=== PATIENT | female | born 1970 | race African-American/Black ===

== ENCOUNTER 2016-04-18 17:01 | Emergency (ER) | payer MEDICARE, OTHER ==
[~2016-04-18] VITALS: Ht 165.1 cm; Wt 77.5 kg
[2016-04-18 17:07] VITALS: Ht 165.1 cm; Wt 77.5 kg
[2016-04-18] MEDS ORDERED: KETOROLAC 60 MG INJ IM STA (18:09)
[2016-04-18] MEDS ORDERED: AZITHROMYCIN 250 MG TAB PO ONE (18:30)
[2016-04-18] MEDS ORDERED: CEFTRIAXONE 250 MG INJ IM ONE (18:30)
[2016-04-18] MEDS ORDERED: LIDOCAINE 1% (MDV) 20 ML INJ SC ONE (19:00)
[2016-04-18] MEDS ORDERED: AMOX1TAB10 PO (20:05)
[2016-04-18] MEDS ORDERED: ULT50 PO (20:05)
--- NOTE | 2016-04-18 20:13 | ERD ---
ER Documentation Chief Complaint Date/Time DATE: 04/18/16 TIME: 20:10 Chief Complaint COUGH CONGESTION FOR THE PAST FEW DAYS WITH UPPER BACKPAIN HPI 46-year-old female with a past medical history of syphilis presents the ED complaining of a left toothache that started 4 days ago. States that she is also concerned for STDs. Denies any fever, chills, abdominal pain, nausea, vomiting, diarrhea. States that she is premenopausal and her last menses was sometime in 2006. Denies any pelvic pain, vaginal discharge, vaginal bleeding. ROS All systems reviewed and are negative except as per history of present illness. Medications Home Meds Active Scripts Amoxicillin/Potassium Clav (Amox-Clav 875-125 mg Tablet) 875-125 mg Tab, 1 TAB PO BID for 7 Days, #14 TAB Prov:ELISABETH CHILDRESS PA-C 04/18/16 Tramadol HCl (Tramadol HCl) 50 Mg Tablet, 50 MG PO Q4 Y for PAIN, #20 TAB Prov:ELISABETH CHILDRESS PA-C 04/18/16 Allergies Allergies: Coded Allergies: No Known Allergy (Verified Allergy, Unknown, 10/26/06) PMhx/Soc History of Surgery: Yes (CSECTIONX1, CHOLECYSECTOMY) Anesthesia Reaction: No Hx Neurological Disorder: No Hx Respiratory Disorders: No Hx Cardiac Disorders: No Hx Psychiatric Problems: No Hx Miscellaneous Medical Probl: Yes (DM, SYPHILIS) Hx Alcohol Use: No Hx Substance Use: No Hx Tobacco Use: Yes (2cig/day) Smoking Status: Current every day smoker Physical Exam Vitals Vital Signs Date Time Temp Pulse Resp B/P Pulse Ox O2 Delivery O2 Flow Rate FiO2 04/18/16 20:17 98.4 74 18 138/84 98 Room Air 04/18/16 17:07 98.4 102 22 145/90 98 Physical Exam Const: [id number]-pvc-[id number], well-nourished. In no acute distress. Head: Atraumatic, normocephalic Eyes: Normal Conjunctiva without injection. No purulent discharge. ENT: Normal external ear, nose. Moist oropharynx without tonsillar exudates. Non -erythematous pharynx. Uvula midline. No drooling. No trismus. Neck: No cervical midline tenderness. Full range of motion. No meningismus. No cervical lymphadenopathy. No JVD. Resp: Clear to auscultation bilaterally. No wheezing, rhonchi, rales, or crackles. No accessory muscle use. No retractions. Cardio: Regular rate and rhythm. No murmurs, rubs or gallops. Abd: Soft, nontender to palpation, non distended. Normal bowel sounds. No palpable masses. No rebound tenderness. No guarding. Negative McBurney's point. Negative psoas sign. Negative obturator sign. Skin: No petechiae or rashes Back: No midline tenderness. No CVA tenderness. Ext: No cyanosis, or edema. Neur: Awake and alert. Normal gait. Normal coordination. Psych: Normal Mood and Affect Results 24 hrs Current Medications Medications (Trade) Dose Ordered Sig/Claribel Route PRN Reason Start Time Stop Time Status Last Admin Dose Admin Ketorolac Tromethamine (Toradol) 60 mg ONCE STAT IM 04/18/16 18:09 04/18/16 18:10 Cancel Ceftriaxone Sodium (Rocephin) 250 mg ONCE ONCE IM 04/18/16 18:30 04/18/16 18:31 DC 04/18/16 19:45 Azithromycin (Zithromax) 1,000 mg ONCE ONCE PO 04/18/16 18:30 04/18/16 18:31 DC 04/18/16 19:46 Lidocaine (Xylocaine 1% (Mdv) 20 ml) 20 ml ONCE ONCE SC 04/18/16 19:00 04/18/16 19:01 DC 04/18/16 19:45 Procedures/MDM This is a 46-year-old female with no significant past medical history presents to the ED complaining of wanting prophylaxis for STDs as she was exposed in December 2015. Patient is afebrile and nontoxic-appearing. Patient has normal vital signs. Patient was treated here in the ED with Zithromax and Ceftriaxone. Low suspicion for symptomatic anemia, ectopic , sepsis, PID, appendicitis, ovarian torsion, tubo-ovarian abscess, surgical abdomen, or other emergent conditions. Patient was educated that there is a risk for threatened . This patient presents to the ED with symptoms consistent with dental pain. Patient is afebrile and has normal vital signs. Patient's physical exam include lungs which were clear to auscultation and a normal pulse oximetry. There is a low suspicion for a croup, pneumonia, pneumothorax, cardiac tamponade , peritonsillar abscess, foreign body aspiration, mastoiditis, retropharyngeal abscess, epiglottitis, meningitis, sepsis or other emergent conditions. Patient to follow up with [facility] in 2 days for further evaluation and treatment. Patient is to return sooner to the ED for any worsening symptoms. Patient's questions were answered. Patient understood and agreed with discharge plan. Departure Diagnosis: Primary Impression: STD exposure Additional Impression: Pain, dental Condition: Stable Patient Instructions: Older Adults and STDs, Dental Pain Referrals: [facility] YOU HAVE RECEIVED A MEDICAL SCREENING EXAM AND THE RESULTS INDICATE THAT YOU DO NOT HAVE A CONDITION THAT REQUIRES URGENT TREATMENT IN THE EMERGENCY DEPARTMENT. FURTHER EVALUATION AND TREATMENT OF YOUR CONDITION CAN WAIT UNTIL YOU ARE SEEN IN YOUR DOCTORS OFFICE WITHIN THE NEXT 1-2 DAYS. IT IS YOUR RESPONSIBILITY TO MAKE AN APPOINTMENT FOR FOLOW-UP CARE. IF YOU HAVE A PRIMARY DOCTOR --you should call your primary doctor and schedule an appointment IF YOU DO NOT HAVE A PRIMARY DOCTOR YOU CAN CALL OUR PHYSICIAN REFERRAL HOTLINE AT IF YOU CAN NOT AFFORD TO SEE A PHYSICIAN YOU CAN CHOSE FROM THE FOLLOWING [facility] [address] [facility]. [facility] [address] [facility]. [facility] [address] [facility]. [facility] [address] [facility]. [facility] [address] [facility]. [facility]. [address] [facility]. [facility] YOU HAVE RECEIVED A MEDICAL SCREENING EXAM AND THE RESULTS INDICATE THAT YOU DO NOT HAVE A CONDITION THAT REQUIRES URGENT TREATMENT IN THE EMERGENCY DEPARTMENT. FURTHER EVALUATION AND TREATMENT OF YOUR CONDITION CAN WAIT UNTIL YOU ARE SEEN IN YOUR DOCTORS OFFICE WITHIN THE NEXT 1-2 DAYS. IT IS YOUR RESPONSIBILITY TO MAKE AN APPOINTMENT FOR FOLOW-UP CARE. IF YOU HAVE A PRIMARY DOCTOR --you should call your primary doctor and schedule and appointment IF YOU DO NOT HAVE A PRIMARY DOCTOR YOU CAN CALL OUR PHYSICIAN REFERRAL HOTLINE AT . IF YOU CAN NOT AFFORD TO SEE A PHYSICIAN YOU CAN CHOSE FROM THE FOLLOWING [facility] IN[facility]: [facility] [address] [place] [address] [facility] [address] [place] [address] [facility] [address] [place] [address] [facility] [place] [id number] [facility] [address] [place] [address] OFFICE FAX , J[place]EL[place] [address] [place], [place] [id number] [address] [place] [address] [place] [address] [address] MELLO [facility] [address] [facility] [facility] [address] [address] [facility] [address] [place] [address] [facility] [address] [place] [address] [phone] [address] [facility] [address] - AZAEL RICE [address]. [address], [place] [address] ANGELLA PARKER [address] [facility], [place] [address] YIMI ST[place] [address] [place], [place] [id number] [facility] Hours: 8:00 am - 5:00 pm [facility] D[facility] ([facility] walk in clinic) Additional Instructions: FOLLOW UP WITH YOUR PRIMARY CARE PHYSICIAN TOMORROW.Return to this facility if you are not improving as expected. ELISABETH CHILDRESS PA-C Apr 18, 2016 20:13 ELISABETH CHILDRESS PA-C Apr 18, 2016 20:13
[2016-04-18 20:17] VITALS: BP 138/84; PULSE 74; RESP 18; TEMP 98.4
== END 2016-04-18 20:32 | disposition home or self-care (01) ==
LOC: FTE 17:01
DX: Z20.2 Contact with and (suspected) exposure to infections with a predominantly sexual mode of transmission (principal); E11.9 Type 2 diabetes mellitus without complications; F17.210 Nicotine dependence, cigarettes, uncomplicated
CPT/HCPCS: 96372; 99284; J0696; J1885

== ENCOUNTER 2016-05-16 16:58 | Emergency (ER) | payer MEDICARE, OTHER ==
[~2016-05-16] VITALS: Wt 70.0 kg
[~2016-05-16 16:58] MED LIST: AMOX1TAB10 PO; TRAM50TA2 PO
--- NOTE | 2016-05-16 17:57 | EN ---
Date/Time of Note Date/Time of Note DATE: 05/16/16 TIME: 17:52 ER Progress Note The patient is a 46-year-old female here with a request for medication refill of tramadol. She comes with a prescription that was written on 04/18/16 for 30 tabs of tramadol. She stated that she went to the pharmacy with this prescription, however was unable to get it filled as the pharmacist stated that it was "too old" and no longer valid. The patient denies any pain at this time. She stated that she has a history of some dental pain, but none currently. She denies any sores or abscesses in her mouth. She denies any broken or chipped teeth. She denied any recent injury, accident, trauma, or fall. She refused a physical examination. She also stated that she had some intermittent vaginal discharge. She was unable to describe the discharge or state the duration of the symptoms. I recommended that she needs a physical examination and laboratory testing for urinary tract infection, vaginal infection, and sexually transmitted infections. She again refused a physical examination. She refused any laboratory studies. She stated that she is only here for a prescription for tramadol. She was belligerent when I informed her that I could not give her a prescription for tramadol without having physically examined her. I offered again to physically examine the patient. She continued to refuse. She left the department prior to being discharged. IFEOMA CARLTON NP May 16, 2016 17:57
== END 2016-05-16 20:00 | disposition left against medical advice (07) ==
LOC: FTE 16:58 → E/R 20:00
DX: Z53.21 Procedure and treatment not carried out due to patient leaving prior to being seen by health care provider (principal)

== ENCOUNTER 2016-07-21 19:15 | Emergency (ER) | payer MEDICARE, OTHER | END 2016-07-21 20:57 | disposition left against medical advice (07) | LOC: E/R 19:15 | DX: Z53.21 Procedure and treatment not carried out due to patient leaving prior to being seen by health care provider (principal) ==

== ENCOUNTER 2016-08-17 20:13 | Emergency (ER) | payer SELFPAY ==
[~2016-08-17] VITALS: Wt 66.5 kg
== END 2016-08-17 22:28 | disposition left against medical advice (07) ==
LOC: E/R 20:13
DX: Z53.21 Procedure and treatment not carried out due to patient leaving prior to being seen by health care provider (principal)

== ENCOUNTER 2016-09-17 05:32 | Emergency (ER) | payer SELFPAY ==
[2016-09-18] MEDS ORDERED: IBUP-1542 PO (07:01)
== END 2016-09-17 06:41 | disposition left against medical advice (07) ==
LOC: E/R 05:32
DX: Z53.21 Procedure and treatment not carried out due to patient leaving prior to being seen by health care provider (principal)

== ENCOUNTER 2016-09-18 06:40 | Emergency (ER) | payer MEDICARE, OTHER ==
[~2016-09-18] VITALS: Ht 160 cm; Wt 70.0 kg
[2016-09-18 06:45] VITALS: Ht 160 cm; Wt 70.0 kg
[2016-09-18] MEDS ORDERED: IBUP-1542 PO (07:01)
--- NOTE | 2016-09-18 07:02 | ERD ---
ER Documentation Chief Complaint Date/Time DATE: 09/18/16 TIME: 07:02 Chief Complaint reported cp, bizarre behavior,talking to hsrself, appears hearing voices HPI Patient is a 46-year-old female with bipolar disorder, diabetes, and hypertension who presents with a "heart problem". She felt like she was going to have a heart attack. She said that she has had this feeling for a few weeks. She says that it got worse. She has had multiple visits upon review of old medical records. Review of the emergency department information exchange shows visits to 2 separate emergency departments. Her thinking is scattered. She plans to follow-up with her primary doctor as soon as she is discharged. ROS All systems reviewed and are negative except as per history of present illness. Medications Home Meds Active Scripts Ibuprofen* (Motrin*) 600 Mg Tab, 600 MG PO Q8, #30 TAB Prov:RENEE MAYES MD 09/18/16 Amoxicillin/Potassium Clav (Amox-Clav 875-125 mg Tablet) 875-125 mg Tab, 1 TAB PO BID for 7 Days, #14 TAB Prov:ELISABETH CHILDRESS PA-C 04/18/16 Tramadol HCl (Tramadol HCl) 50 Mg Tablet, 50 MG PO Q4 Y for PAIN, #20 TAB Prov:ELISABETH CHILDRESS PA-C 04/18/16 Allergies Allergies: Coded Allergies: No Known Allergy (Verified , 05/16/16) PMhx/Soc History of Surgery: Yes (CSECTIONX1, CHOLECYSECTOMY) Anesthesia Reaction: No Hx Neurological Disorder: No Hx Respiratory Disorders: No Hx Cardiac Disorders: No Hx Psychiatric Problems: No Hx Miscellaneous Medical Probl: Yes (DM, SYPHILIS) Hx Alcohol Use: No Hx Substance Use: No Hx Tobacco Use: Yes (2cig/day) FmHx Family History: No diabetes Physical Exam Vitals Vital Signs Date Time Temp Pulse Resp B/P Pulse Ox O2 Delivery O2 Flow Rate FiO2 09/18/16 06:45 98.1 100 20 151/92 99 Physical Exam Const: No acute distress Head: Atraumatic Eyes: Normal Conjunctiva ENT: Normal External Ears, Nose and Mouth. Neck: Full range of motion..~ No meningismus. Resp: Clear to auscultation bilaterally Cardio: Regular rate and rhythm, no murmurs Abd: Soft, non tender, non distended. Normal bowel sounds Skin: No petechiae or rashes Back: No midline or flank tenderness Ext: No cyanosis, or edema Neur: Awake and alert Psych: Patient has some scattered thinking and has a history of psychiatric disease Procedures/MDM EKG read by me: Rate/Rhythm: Regular rate and rhythm at a rate of 97 Intervals: Normal Impression: No evidence of ischemia or arrhythmia Smoking Cessation Therapy: Pt. was lectured for greater than 3 minutes on the health risks of continued smoking and the benefits of cessation. Patient is a 46-year-old female who presents with chest pain. Her EKG shows no signs of ischemia or arrhythmia. I doubt acute coronary syndrome, pneumonia, pneumothorax, pulmonary embolism, or aortic dissection. I believe outpatient management is appropriate. She said that she is going to follow-up with her primary doctor soon as she is discharged. She can return for any worsening symptoms. I do not believe she requires further workup or admission to the hospital at this time. She will be given a prescription for ibuprofen for pain. Departure Diagnosis: Primary Impression: Chest pain Chest pain type: unspecified Qualified Code: R07.9 - Chest pain, unspecified type Condition: Fair Patient Instructions: Chest Pain, Uncertain Cause Referrals: Dr. Blake Additional Instructions: Call your primary care doctor TOMORROW for an appointment during the next 1-2 days.See the doctor sooner or return here if your condition worsens before your appointment time. RENEE MAYES MD Sep 18, 2016 07:02
== END 2016-09-18 07:25 | disposition home or self-care (01) ==
LOC: E/R 06:40
DX: R07.9 Chest pain, unspecified (principal); I10 Essential (primary) hypertension; E11.9 Type 2 diabetes mellitus without complications; F17.210 Nicotine dependence, cigarettes, uncomplicated
CPT/HCPCS: 93005

== ENCOUNTER 2016-10-17 13:38 | Emergency (ER) | payer MEDICARE, OTHER ==
[~2016-10-17] VITALS: Wt 71.0 kg
[~2016-10-17 13:38] MED LIST changes: +IBUP-1542 PO
== END 2016-10-17 17:30 | disposition left against medical advice (07) ==
LOC: E/R 13:38
DX: Z53.21 Procedure and treatment not carried out due to patient leaving prior to being seen by health care provider (principal)

== ENCOUNTER 2016-10-19 04:54 | Emergency (ER) | payer MEDICARE, OTHER ==
[~2016-10-19] VITALS: Ht 167.6 cm; Wt 65.0 kg
[2016-10-19 05:02] VITALS: Ht 167.6 cm; Wt 65.0 kg
[2016-10-19] MEDS ORDERED: METF500T4 PO (05:22)
[2016-10-19] MEDS ORDERED: QUET150T PO (05:22)
[2016-10-19] MEDS ORDERED: FLUO20CA38 PO (05:22)
--- NOTE | 2016-10-19 05:25 | ERD ---
ER Documentation Chief Complaint Date/Time DATE: 10/19/16 TIME: 05:23 Chief Complaint c/o dry skin on feet x yrs. HPI This a 45-year-old homeless patient who states she is here because she wants to have her feet cleaned. She wears flip-flops and she is homeless walking the streets. She has cracked dried dirty feet and she wants them soaked. The patient is very tangential with delusional thinking is not homicidal or suicidal. She says she needs refills on her Prozac and metformin as well too. She says she takes antipsychotic medication but does not know the name. ROS All systems reviewed and are negative except as per history of present illness. Medications Home Meds Active Scripts Quetiapine Fumarate* (Seroquel* XR) 150 Mg Tab.sr.24h, 150 MG PO DAILY for 14 Days, #30 TAB Prov:JOSE NARVAEZ. DO 10/19/16 Metformin Hcl* (Metformin Hcl*) 500 Mg Tablet, 500 MG PO WITH BREAKFAST, #30 TAB Prov:PARISA NARVAEZS APito DO 10/19/16 Fluoxetine Hcl* (Prozac*) 20 Mg Capsule, 20 MG PO DAILY, #14 CAP Prov:CHERISE NARVAEZSTOLOS A. DO 10/19/16 Ibuprofen* (Motrin*) 600 Mg Tab, 600 MG PO Q8, #30 TAB Prov:RENEE MAYES MD 09/18/16 Amoxicillin/Potassium Clav (Amox-Clav 875-125 mg Tablet) 875-125 mg Tab, 1 TAB PO BID for 7 Days, #14 TAB Prov:ELISABETH CHILDRESS PA-C 04/18/16 Tramadol HCl (Tramadol HCl) 50 Mg Tablet, 50 MG PO Q4 Y for PAIN, #20 TAB Prov:ELISABETH CHILDRESS PA-C 04/18/16 Allergies Allergies: Coded Allergies: No Known Allergy (Verified , 05/16/16) PMhx/Soc History of Surgery: Yes (CSECTIONX1, CHOLECYSECTOMY) Anesthesia Reaction: No Hx Neurological Disorder: No Hx Respiratory Disorders: No Hx Cardiac Disorders: No Hx Psychiatric Problems: No Hx Miscellaneous Medical Probl: Yes (DM, SYPHILIS, schizophrenia) Hx Alcohol Use: No Hx Substance Use: No Hx Tobacco Use: Yes (2cig/day) Smoking Status: Current every day smoker FmHx Family History: No coronary disease Physical Exam Vitals Vital Signs Date Time Temp Pulse Resp B/P Pulse Ox O2 Delivery O2 Flow Rate FiO2 10/19/16 05:02 98.3 115 20 128/96 99 Physical Exam Const: Well-developed, well-nourished Head: Atraumatic, normocephalic Eyes: Normal Conjunctiva, PERRLA, EOMI, normal sclera, no nystagmus ENT: Normal External Ears, Nose and Mouth, moist mucus membranes. Neck: Full range of motion. No meningismus, no lymphadenopathy. Resp: Clear to auscultation bilaterally, no wheezing, rhonchi, rales Cardio: Regular rate and rhythm, no murmurs, S1 S2 present Abd: Soft, non tender x 4, non distended. Normal bowel sounds, no guarding or rebound, no pulsitile abdominal masses or bruits Skin: No petechiae or rashes, no ecchymosis , no maculopapular rash Back: No midline or flank tenderness Ext: No cyanosis, or edema, FROM x 4, normal inspection, neurovascularly intact x 4 Neur: Awake and alert, STR 5/5 x 4, sensation intact x 4, no focal findings, cerebellum intact Psych: Pleasant, cooperative, tangential with delusional thinking, not homicidal or suicidal] Results 24 hrs Current Medications Medications (Trade) Dose Ordered Sig/Claribel Route PRN Reason Start Time Stop Time Status Last Admin Dose Admin Olanzapine (Zyprexa) 10 mg ONCE ONCE IM 10/19/16 05:30 10/19/16 05:31 Procedures/MDM We will soak her feet and get her some clean socks. She received some Zyprexa IM followed by refills of Prozac and metformin and will give her Seroquel Departure Diagnosis: Primary Impression: Psychosis Psychosis type: unspecified psychosis type Qualified Code: F29 - Psychosis, unspecified psychosis type Additional Impression: Medication refill Condition: Stable Patient Instructions: Taking Medicine Safely JOSE NARVAEZ DO Oct 19, 2016 05:25
[2016-10-19] MEDS: OLANZAPINE 10 MG VIAL IM ONE ×2 (05:28→05:32)
== END 2016-10-19 05:55 | disposition home or self-care (01) ==
LOC: E/R 04:54
DX: F29 Unspecified psychosis not due to a substance or known physiological condition (principal); E11.9 Type 2 diabetes mellitus without complications; F17.210 Nicotine dependence, cigarettes, uncomplicated; Z76.0 Encounter for issue of repeat prescription; Z79.84 Long term (current) use of oral hypoglycemic drugs
CPT/HCPCS: 99283

== ENCOUNTER 2016-10-31 20:40 | Emergency (ER) | payer MEDICARE ==
[~2016-10-31] VITALS: Ht 157.5 cm; Wt 66.0 kg
[~2016-10-31 20:40] MED LIST changes: +FLUO20CA38 PO; +METF500T4 PO; +QUET150T PO
[2016-10-31 20:50] VITALS: Ht 157.5 cm; Wt 66.0 kg
[2016-10-31] MEDS ORDERED: LISI-313 PO (21:35)
[2016-10-31] MEDS ORDERED: INSU100C SQ (21:36)
[2016-10-31] MEDS ORDERED: LANT3I SC (21:37)
[2016-10-31] MEDS ORDERED: MONT10TA24 PO (21:38)
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
== END 2016-10-31 21:44 | disposition home or self-care (01) ==
LOC: FTE 20:40
DX: Z76.0 Encounter for issue of repeat prescription (principal); E11.9 Type 2 diabetes mellitus without complications; Z79.84 Long term (current) use of oral hypoglycemic drugs; Z87.891 Personal history of nicotine dependence
CPT/HCPCS: 82962; 99281

== ENCOUNTER 2016-11-04 10:32 | Emergency (ER) | payer MEDICARE, OTHER ==
[~2016-11-04] VITALS: Ht 167.6 cm; Wt 65.0 kg
[~2016-11-04 10:32] MED LIST changes: +INSU100C SQ; +LANT3I SC; +LISI-313 PO; +MONT10TA24 PO
[2016-11-04 10:34] VITALS: Ht 167.6 cm; Wt 65.0 kg
[2016-11-04] MEDS ORDERED: OLANZAPINE (ODT) 5 MG TAB ODT ONE (11:00)
--- NOTE | 2016-11-04 11:36 | PSY ---
Date/Time of Note Date/Time of Note DATE: 11/04/16 TIME: 11:24 Psychiatric Subjective Eval Consent Pt consented to telemedicine: Yes Subjective Evaluation Patient location: emergency Chief Complaint: "wants a tdap shot" Medical history Problems Medical Problems: (1) Chest pain Status: Acute (2) Encounter for medication refill Status: Acute (3) Encounter for medication refill Status: Acute (4) Encounter for medication refill Status: Acute (5) Medication refill Status: Acute (6) Pain, dental Status: Acute (7) Patient left without being seen Status: Acute (8) Patient left without being seen Status: Acute (9) Patient left without being seen Status: Acute (10) Psychosis Status: Acute (11) STD exposure Status: Acute Allergies: Coded Allergies: No Known Allergy (Verified , 05/16/16) Assessment Additional comments: IDENTIFYING INFORMATION: 46 year old Female patient who is currently located at the hospital and for whom psychiatric consultation was requested. SOURCES OF INFORMATION: The patient who appears to be reliable and the medical records; the nursing staff. CHIEF COMPLAINT: "my mama had syphilis, on behalf of God". HISTORY OF PRESENT ILLNESS: The patient was interviewed via telemedicine in the presence of and under the supervision of nursing staff of the hospital. The consent to conducting this interview via telemedicine was obtained by the nursing staff at the hospital. Dr. Patricio reports that the patient presents with delusions and flight of ideas. The patient reports that her mother had syphilis on behalf of God. She reports that she has a a recording from a long time ago, from centuries ago, they are playing games, went to [facility] house, do you want to love me or play games? An honorary . Admits to having AH. The patient reports drinking alcohol only occasionally. Last drink was a few days ago. The patient denies using alcohol heavily or regularly. The patient reports using meth at an unknown frequency. Last use was yesterday. The patient denies using any other substances. The patient is not able to provide a coherent history due to psychosis/ agitation. PAST MEDICAL HISTORY: HTN, DM. CURRENT MEDICATIONS: gabapentin, amoxicilin, prosac 20 mg po qday, norco prn, humalog, lantus, metformin (noncompliant with meds). ALLERGIES TO MEDICATIONS: NKDA. SOCIAL HISTORY: unable to assess due to the patient being agitated and psychotic. LABORATORY TESTS: labs from today are pending, The patient has a UDS from 2008 which was positive for amphetamines, cannabinoids. FAMILY HISTORY: unable to assess because the patient was not able to participate to the interview in an appropriate manner. REVIEW OF SYSTEMS: Constitutional (e.g., fever, weight loss): negative; Eyes, Ears, Nose, Mouth, Throat: negative; Cardiovascular: negative; Respiratory: negative; Gastrointestinal: negative; Genitourinary: negative; Musculoskeletal: negative; Integumentary (skin and/or breast): negative; Neurological: negative; Psychiatric: as per HPI; Endocrine: negative; Hematologic/Lymphatic: negative; Allergic/Immunologic: negative. MENTAL STATUS EXAMINATION: General Appearance and Behavior: Agitated, appears to be responding to internal stimuli, uncooperative with most of the interview, distant with the current interviewer, makes poor eye contact, poorly groomed, increased psychomotor activity, no abnormal movements noted. Speech: Normal rate, regular rhythm, normal latency, normal volume. Flow of thought: tangential, illogical, not goal-directed. Content of thought: + auditory hallucinations, + paranoid delusions, no visual hallucinations, denied having suicidal ideation; no homicidal ideation. Mood: "OK". Affect: agitated, angry, flat, decreased range of reactivity. Attention: normal based on the interview. Insight: poor. Judgment: poor. Memory: normal based on the interview. Sensorium: alert and oriented to person, place, date. ASSESSMENT: The patient's presentation and history are consistent with the diagnosis of unspecified psychotic disorder, stimulant use disorder. The patient presents with an exacerbation of psychosis in the context of stimulant use. [place] I: unspecified psychotic disorder, stimulant use disorder. [place] II: Deferred. [place] III: see PMH. [place] IV: social stressors. [place] V: GAF: 10. PLAN: - Medication management: Would continue Zyprexa 5 mg by mouth twice a day ( the patient already received one dose of Zyprexa at 11 AM). Would start haloperidol 5 mg IM PRN severe agitation q4 hours. Would start diphenhydramine 50 mg IM PRN severe agitation q4 hours. Would start lorazepam 2 mg IM PRN severe agitation q4 hours Will defer to the inpatient psychiatry team for other medication changes. - Labs: please check CBC, CMP, alcohol level, UDS, test. - Psychotherapy: Provided supportive psychotherapy and psychoeducation. - Disposition: Would recommend involuntary admission to the inpatient psychiatric unit given the severity of the patient's psychiatric condition and the fact that the patient is an imminent danger to self and/or others so long as the patient has been cleared medically for admission to psychiatry. Inpatient psychiatric admission is at this time the least restrictive environment where the patient can receive the psychiatric care that is needed. Would place on suicide precautions. The patient fulfills criteria for being placed on involuntary hold due to being a danger to self or others or gravely disabled. Will discuss with ER physician. KEMI NUNES MD Nov 04, 2016 11:34
[2016-11-04 12:13] LABS: BASOPHILS % 0.7 % (0.0-2.0); EOSINOPHILS # 0.2 10^3/ul (0.0-0.5); HEMATOCRIT 44.8 % (37.0-47.0); HEMOGLOBIN 14.5 g/dl (12.0-16.0); LYMPHOCYTES # 2.4 10^3/ul (0.8-2.9); LYMPHOCYTES % 43.5 % (15.0-51.0); MEAN CORPUSCULAR HEMOGLOBIN 29.2 pg (29.0-33.0); MEAN CORPUSCULAR HGB CONC 32.4 g/dl (32.0-37.0); MEAN CORPUSCULAR VOLUME 90.3 fl (82.0-101.0); MEAN PLATELET VOLUME 9.1 fl (7.4-10.4); MONOCYTE # 0.3 10^3/ul (0.3-0.9); NEUTROPHIL # 2.6 10^3/ul (1.6-7.5); NEUTROPHILS % 47.4 % (39.0-77.0); PLATELET COUNT 319 10^3/UL (140-415); RED BLOOD COUNT 4.96 10^6/ul (4.20-5.40); RED CELL DISTRIBUTION WIDTH 12.1 % (11.5-14.5); WHITE BLOOD COUNT 5.4 10^3/ul (4.8-10.8)
[2016-11-04 12:18] LABS: ADD UMIC YES; UR ASCORBIC ACID NEGATIVE (NEGATIVE); UR BILIRUBIN (Dip) NEGATIVE (NEGATIVE); UR BLOOD (Dip) NEGATIVE (NEGATIVE); UR CLARITY SLIGHTLY CLOUDY (CLEAR); UR COLOR YELLOW (YELLOW); UR GLUCOSE (Dip) NEGATIVE (NEGATIVE); UR KETONES (Dip) TRACE mg/dL (NEGATIVE); UR LEUKOCYTE ESTERASE (Dip) 2+ Leu/ul (NEGATIVE); UR MUCUS FEW /HPF (NONE SEEN); UR NITRITE (Dip) NEGATIVE (NEGATIVE); UR NONSQUAMOUS EPITHELIAL CELL 4 /HPF (NONE SEEN); UR RBC 2 /HPF (0-5); UR SPECIFIC GRAVITY (Dip) 1.024 (1.003-1.030); UR SQUAMOUS EPITHELIAL CELL FEW /HPF (FEW); UR TOTAL PROTEIN (Dip) 1+ mg/dl (NEGATIVE); UR UROBILINOGEN (Dip) NEGATIVE (NEGATIVE)
[2016-11-04 12:24] LABS: CANNABINOIDS Negative (NEGATIVE)
[2016-11-04 12:31] LABS: ALANINE AMINOTRANSFERASE 27 IU/L (13-69); ALBUMIN 4.8 g/dl (3.3-4.9); ALBUMIN/GLOBULIN RATIO 1.37; ALKALINE PHOSPHATASE 78 IU/L (42-121); ANION GAP 17 (8-16); ASPARTATE AMINO TRANSFERASE 24 IU/L (15-46); BILIRUBIN,INDIRECT 0.4 mg/dl (0-1.1); BILIRUBIN,TOTAL 0.4 mg/dl (0.2-1.3); BLOOD UREA NITROGEN 9 mg/dl (7-20); CALCIUM 9.7 mg/dl (8.4-10.2); CARBON DIOXIDE 30 mmol/L (21-31); CHLORIDE 101 mmol/L (97-110); CREATININE 0.66 mg/dl (0.44-1.00); GLUCOSE 123 mg/dl (70-220); POTASSIUM 4.3 mmol/L (3.5-5.1); SODIUM 144 mmol/L (135-144); TOTAL PROTEIN 8.3 g/dl (6.1-8.1)
[2016-11-04 12:33] LABS: BARBITURATES Negative (NEGATIVE)
[2016-11-04 12:34] LABS: BENZODIAZEPINES Negative (NEGATIVE); COCAINE Negative (NEGATIVE); OPIATES Negative (NEGATIVE)
[2016-11-04 12:34] LABS: ACETAMINOPHEN < 10.0 ug/ml (10.0-30.0); ETHANOL < 10.0 mg/dl; SALICYLATE < 1.0 mg/dl (5.0-30.0)
[2016-11-04] MEDS ORDERED: NITROFURANTOIN (SR) 100 MG CAP PO ONE (13:00)
--- NOTE | 2016-11-04 13:22 | ERA ---
ER Documentation Chief Complaint Date/Time DATE: 11/04/16 TIME: 13:19 Chief Complaint "wants a tdap shot" HPI Patient is a 46-year-old female with schizophrenia who presents with psychosis. Please note the history and physical exam is limited secondary to the patient' s mental status at this time due to her psychiatric presentation. She is having delusions and flight of ideas. She says many things about "God's will". It is difficult to get a straight answer to any other question. Upon review of old medical records the patient has multiple visits to the ER for various complaints. ROS All systems reviewed and are negative except as per history of present illness. Medications Home Meds Active Scripts Montelukast Sodium* (Montelukast Sodium*) 10 Mg Tablet, 10 MG PO QHS, #30 TAB Prov:PENNY TRUJILLO 10/31/16 Insulin Glargine* (Lantus*) 100 Unit/Ml Soln, 45 UNIT SC QHS, #1 VIAL Prov:PENNY TRUJILLO 10/31/16 Insulin Lispro (Humalog) 100 Unit/1 Ml Cartridge, 100 UNIT SQ BEFORE MEALS, #30 Prov:PENNY TRUJILLO 10/31/16 Lisinopril* (Lisinopril*) 5 Mg Tablet, 5 MG PO DAILY, #30 TAB Prov:PENNY TRUJILLO 10/31/16 Quetiapine Fumarate* (Seroquel* XR) 150 Mg Tab.sr.24h, 150 MG PO DAILY for 14 Days, #30 TAB Prov:JOSE NARVAEZ DO 10/19/16 Metformin Hcl* (Metformin Hcl*) 500 Mg Tablet, 500 MG PO WITH BREAKFAST, #30 TAB Prov:JOSE NARVAEZ DO 10/19/16 Fluoxetine Hcl* (Prozac*) 20 Mg Capsule, 20 MG PO DAILY, #14 CAP Prov:JOSE NARVAEZ DO 10/19/16 Ibuprofen* (Motrin*) 600 Mg Tab, 600 MG PO Q8, #30 TAB Prov:RENEE MAYES MD 09/18/16 Amoxicillin/Potassium Clav (Amox-Clav 875-125 mg Tablet) 875-125 mg Tab, 1 TAB PO BID for 7 Days, #14 TAB Prov:ELISABETH CHILDRESS PA-C 04/18/16 Tramadol HCl (Tramadol HCl) 50 Mg Tablet, 50 MG PO Q4 Y for PAIN, #20 TAB Prov:ELISABETH CHILDRESS Too SHAFFER 04/18/16 Allergies Allergies: Coded Allergies: No Known Allergy (Verified , 05/16/16) PMhx/Soc History of Surgery: Yes (CSECTIONX1, CHOLECYSECTOMY) Anesthesia Reaction: No Hx Neurological Disorder: No Hx Respiratory Disorders: No Hx Cardiac Disorders: No Hx Psychiatric Problems: No Hx Miscellaneous Medical Probl: Yes (DM, SYPHILIS, schizophrenia) Hx Alcohol Use: No Hx Substance Use: No Hx Tobacco Use: Yes (2cig/day) Smoking Status: Current every day smoker FmHx Unable to obtain. Physical Exam Vitals Vital Signs Date Time Temp Pulse Resp B/P Pulse Ox O2 Delivery O2 Flow Rate FiO2 11/04/16 10:34 98.6 121 18 134/87 100 Physical Exam Const: Flight of ideas with delusions Head: Atraumatic Eyes: Normal Conjunctiva ENT: Normal External Ears, Nose and Mouth. Neck: Full range of motion..~ No meningismus. Resp: Clear to auscultation bilaterally Cardio: Regular rate and rhythm, no murmurs Abd: Soft, non tender, non distended. Normal bowel sounds Skin: No petechiae or rashes Back: No midline or flank tenderness Ext: No cyanosis, or edema Neur: Awake and moves all 4 extremities Psych: Flight of ideas and delusions, this appears to be acute psychosis Result Diagram: 11/04/16 1150 11/04/16 1150 Results 24 hrs Laboratory Tests Test 11/04/16 11:39 11/04/16 11:50 Urine Color YELLOW Urine Clarity SLIGHTLY CLOUDY Urine pH 5.0 Urine Specific [place] 1.024 Urine Ketones TRACEmg/dL Urine Nitrite NEGATIVEmg/dL Urine Bilirubin NEGATIVEmg/dL Urine Urobilinogen NEGATIVEmg/dL Urine Leukocyte Esterase 2+Sharad/ul Urine Microscopic RBC 2/HPF Urine Microscopic WBC 12/HPF Urine Squamous Epithelial Cells FEW/HPF Urine Mucus FEW/HPF Urine Hemoglobin NEGATIVEmg/dL Urine Glucose NEGATIVEmg/dL Urine Total Protein 1+mg/dl Urine Opiates Screen Negative Urine Barbiturates Negative Urine Amphetamines Screen POSITIVE Urine Benzodiazepines Screen Negative Urine Cocaine Screen Negative Urine Cannabinoids Negative White Blood Count 5.410^3/ul Red Blood Count 4.9610^6/ul Hemoglobin 14.5g/dl Hematocrit 44.8% Mean Corpuscular Volume 90.3fl Mean Corpuscular Hemoglobin 29.2pg Mean Corpuscular Hemoglobin Concent 32.4g/dl Red Cell Distribution Width 12.1% Platelet Count 48069^3/UL Mean Platelet Volume 9.1fl Neutrophils % 47.4% Lymphocytes % 43.5% Monocytes % 5.0% Eosinophils % 3.0% Basophils % 0.7% Nucleated Red Blood Cells % 0.0/100WBC Neutrophils # 2.610^3/ul Lymphocytes # 2.410^3/ul Monocytes # 0.310^3/ul Eosinophils # 0.210^3/ul Basophils # 0.010^3/ul Nucleated Red Blood Cells # 0.010^3/ul Sodium Level 144mmol/L Potassium Level 4.3mmol/L Chloride Level 101mmol/L Carbon Dioxide Level 30mmol/L Anion Gap 17 Blood Urea Nitrogen 9mg/dl Creatinine 0.66mg/dl Glucose Level 123mg/dl Calcium Level 9.7mg/dl Total Bilirubin 0.4mg/dl Direct Bilirubin 0.00mg/dl Indirect Bilirubin 0.4mg/dl Aspartate Amino Transf (AST/SGOT) 24IU/L Alanine Aminotransferase (ALT/SGPT) 27IU/L Alkaline Phosphatase 78IU/L Total Protein 8.3g/dl Albumin 4.8g/dl Globulin 3.50g/dl Albumin/Globulin Ratio 1.37 Salicylates Level < 1.0mg/dl Acetaminophen Level < 10.0ug/ml Ethyl Alcohol Level < 10.0mg/dl Current Medications Medications (Trade) Dose Ordered Sig/Claribel Route PRN Reason Start Time Stop Time Status Last Admin Dose Admin Olanzapine (Zyprexa Zydis) 5 mg ONCE ONCE ODT 11/04/16 11:00 11/04/16 11:01 DC 11/04/16 11:36 Nitrofurantoin Macrocrystals (Macrobid) 100 mg ONCE ONCE PO 11/04/16 13:00 11/04/16 13:01 DC Olanzapine (Zyprexa Zydis) 5 mg BID ODT 11/04/16 21:00 Procedures/MDM Psychiatric evaluation recommended 5150 hold. Patient is a 46-year-old female with schizophrenia who presents with acute psychosis. The patient is medically clear and will need transfer to a psychiatric facility. She has been medically cleared. She was found to have a UTI and was given Macrobid by mouth. She was given Zyprexa in the emergency department and will be given Zyprexa twice daily while she is in the emergency department. Departure Diagnosis: Primary Impression: Psychosis Qualified Code: F29 - Psychosis, unspecified psychosis type Condition: RENEE Roche MD Nov 04, 2016 13:22
[2016-11-04] MEDS ORDERED: HALOPERIDOL 5 MG INJ ONE (17:24)
[2016-11-04 18:52] VITALS: BP 117/73; PULSE 84; RESP 18; TEMP 97.7
[2016-11-04] MEDS: HALOPERIDOL 5 MG INJ IV ONE ×2 (19:05→19:13)
[2016-11-04] MEDS ORDERED: OLANZAPINE (ODT) 5 MG TAB ODT SCH (21:00)
== END 2016-11-04 20:10 ==
LOC: E/R 10:32
DX: F29 Unspecified psychosis not due to a substance or known physiological condition (principal); E11.9 Type 2 diabetes mellitus without complications; F17.210 Nicotine dependence, cigarettes, uncomplicated; Z79.4 Long term (current) use of insulin; Z79.84 Long term (current) use of oral hypoglycemic drugs
CPT/HCPCS: 80053; 80306; 80307; 81001; 85025; J1630; 36415; 96374

== ENCOUNTER 2017-01-27 20:36 | Emergency (ER) | payer MEDICARE, OTHER ==
[~2017-01-27] VITALS: Ht 167.6 cm; Wt 67.0 kg
[~2017-01-27 20:36] MED LIST changes: -AMOX1TAB10 PO
[2017-01-27 20:40] VITALS: Ht 167.6 cm; Wt 67.0 kg
--- NOTE | 2017-01-27 21:22 | ERD ---
ER Documentation Chief Complaint Chief Complaint medication refill- metformin HPI right mandibular jaw pain r/t fractured tooth , and vaginal itching , pt was at [facility] dx with dental abscess and yeasts infection, pt states that she could not get her medication because she was meeting with her attorney general. Amphetamine dependent, patient is speaking incoherently most of the time. Nonviolent, talking to herself, denies hallucination. ROS All systems reviewed and are negative except as per history of present illness. Medications Home Meds Active Scripts Montelukast Sodium* (Montelukast Sodium*) 10 Mg Tablet, 10 MG PO QHS, #30 TAB Prov:PENNY TRUJILLO 10/31/16 Insulin Glargine* (Lantus*) 100 Unit/Ml Soln, 45 UNIT SC QHS, #1 VIAL Prov:CASSANDRAPENNY HO 10/31/16 Insulin Lispro (Humalog) 100 Unit/1 Ml Cartridge, 100 UNIT SQ BEFORE MEALS, #30 Prov:PENNY TRUJILLO 10/31/16 Lisinopril* (Lisinopril*) 5 Mg Tablet, 5 MG PO DAILY, #30 TAB Prov:PENNY TRUJILLO 10/31/16 Quetiapine Fumarate* (Seroquel* XR) 150 Mg Tab.sr.24h, 150 MG PO DAILY for 14 Days, #30 TAB Prov:JOSE NARVAEZ DO 10/19/16 Metformin Hcl* (Metformin Hcl*) 500 Mg Tablet, 500 MG PO WITH BREAKFAST, #30 TAB Prov:PARISA NARVAEZS A. DO 10/19/16 Fluoxetine Hcl* (Prozac*) 20 Mg Capsule, 20 MG PO DAILY, #14 CAP Prov:CHERISE NARVAEZSTOLOS A. DO 10/19/16 Ibuprofen* (Motrin*) 600 Mg Tab, 600 MG PO Q8, #30 TAB Prov:RENEE MAYES MD 09/18/16 Tramadol HCl (Tramadol HCl) 50 Mg Tablet, 50 MG PO Q4 Y for PAIN, #20 TAB Prov:ELISABETH CHILDRESS PA-C 04/18/16 Allergies Allergies: Coded Allergies: No Known Allergy (Verified , 01/27/17) PMhx/Soc History of Surgery: Yes (CSECTIONX1, CHOLECYSECTOMY) Anesthesia Reaction: No Hx Neurological Disorder: No Hx Respiratory Disorders: No Hx Cardiac Disorders: No Hx Psychiatric Problems: No Hx Miscellaneous Medical Probl: Yes (DM, SYPHILIS, schizophrenia) Hx Alcohol Use: No Hx Substance Use: No Hx Tobacco Use: Yes (2cig/day) Smoking Status: Current every day smoker Physical Exam Vitals Vital Signs Date Time Temp Pulse Resp B/P Pulse Ox O2 Delivery O2 Flow Rate FiO2 01/27/17 20:40 97.9 104 20 136/90 98 Stable, triage notes reviewed Physical Exam Const: Well-nourished, 47-year-old female in no acute distress Head: Eyes: ENT: Lateral tympanic membranes translucent, nasal mucosa moist,#32 third molar fractured tooth, avulsion, appears old with no gingivitis. Neck: Resp: Cardio: Abd: Soft, non tender, non distended. Normal bowel sounds Skin: Back: Ext: Neur: Awake and alert Psych: Normal Mood and Affect Procedures/MDM This 47-year-old female to emergency department clearly under the influence of methamphetamine, incoherent speak most of the time, patient is reporting instances in the distant past, confusing them with current times, patient reports she was seen at [facility] that had to leave to meet her attorney general or a lawsuit that she has pending. Also reports that she has resided or is residing at [facility], she also has gone through [facility] for methamphetamine several years ago. Patient reports she last used methamphetamine 3 days ago. Patient is talking to herself, denies hallucinations, plan to treat patient for dental infection, patient reports she was yeast infection and vaginal team, one Diflucan will also be prescribed. Patient is stable with no new complaints during ER course, clinically there is no current evidence to suggest meningitis, sepsis, ascites, acute abdomen, or any other emergent condition appearing to require further evaluation or hospitalization. I feel the patient is stable for discharge at this time. I have discussed results, examination findings, the treatment plan with the patient and family present prior to discharge. Indications for emergent reevaluation, side effects of medication were also discussed. All questions were answered. Patient verbalizes understanding and agrees with plan of care. Departure Diagnosis: Primary Impression: Dental infection KIRK GONZALEZ Jan 27, 2017 21:22
[2017-01-27] MEDS ORDERED: AMOX1TAB10 PO (21:58)
[2017-01-27] MEDS ORDERED: FLUC150T17 PO (21:59)
== END 2017-01-27 22:05 | disposition left against medical advice (07) ==
LOC: FTE 20:36 → E/R 22:05
DX: K04.7 Periapical abscess without sinus (principal); F17.210 Nicotine dependence, cigarettes, uncomplicated; E11.9 Type 2 diabetes mellitus without complications; Z79.4 Long term (current) use of insulin; Z79.84 Long term (current) use of oral hypoglycemic drugs
CPT/HCPCS: 99284

== ENCOUNTER 2017-03-03 03:17 | Emergency (ER) | payer MEDICARE, OTHER ==
[~2017-03-03] VITALS: Ht 165.1 cm; Wt 64.5 kg
[~2017-03-03 03:17] MED LIST changes: +AMOX1TAB10 PO; +FLUC150T17 PO
[2017-03-03 03:34] VITALS: Ht 165.1 cm; Wt 64.5 kg
[2017-03-03] MEDS ORDERED: LORAZEPAM 1 MG TAB PO ONE (04:30)
[2017-03-03] MEDS ORDERED: IBUP-1542 PO (05:34)
--- NOTE | 2017-03-03 05:34 | ERD ---
ER Documentation Chief Complaint Chief Complaint Pt reports L dental pain for 2 days, pt smoked meth @ 0230 HPI This is a 47-year-old female who complains of dental pain for 2 days. She admits to smoking with x-ray. 2 hours ago. No nausea vomiting no chills. No other current issues. No suicidal homicidal ideation. No auditory or visual hallucinations. ROS All systems reviewed and are negative except as per history of present illness. Medications Home Meds Active Scripts Fluconazole* (Diflucan*) 150 Mg Tablet, 150 MG PO ONCE, #1 TAB Prov:LISA,KIRK 01/27/17 Amoxicillin/Potassium Clav (Amox-Clav 875-125 mg Tablet) 875-125 mg Tab, 1 TAB PO BID for 10 Days, #20 TAB Prov:LISA,KIRK 01/27/17 Montelukast Sodium* (Montelukast Sodium*) 10 Mg Tablet, 10 MG PO QHS, #30 TAB Prov:PENNY TRUJILLO 10/31/16 Insulin Glargine* (Lantus*) 100 Unit/Ml Soln, 45 UNIT SC QHS, #1 VIAL Prov:CASSANDRAPENNY C 10/31/16 Insulin Lispro (Humalog) 100 Unit/1 Ml Cartridge, 100 UNIT SQ BEFORE MEALS, #30 Prov:CASSANDRAPENNY 10/31/16 Lisinopril* (Lisinopril*) 5 Mg Tablet, 5 MG PO DAILY, #30 TAB Prov:CASSANDRAPENNY 10/31/16 Quetiapine Fumarate* (Seroquel* XR) 150 Mg Tab.sr.24h, 150 MG PO DAILY for 14 Days, #30 TAB Prov:JOSE NARVAEZ. DO 10/19/16 Metformin Hcl* (Metformin Hcl*) 500 Mg Tablet, 500 MG PO WITH BREAKFAST, #30 TAB Prov:JOSE NARVAEZ DO 10/19/16 Fluoxetine Hcl* (Prozac*) 20 Mg Capsule, 20 MG PO DAILY, #14 CAP Prov:CHERISE NARVAEZSTOLOS A. DO 10/19/16 Ibuprofen* (Motrin*) 600 Mg Tab, 600 MG PO Q8, #30 TAB Prov:RENEE MAYES MD 09/18/16 Tramadol HCl (Tramadol HCl) 50 Mg Tablet, 50 MG PO Q4 Y for PAIN, #20 TAB Prov:ELISABETH CHILDRESS Too SHAFFER 04/18/16 Allergies Allergies: Coded Allergies: No Known Allergy (Verified , 01/27/17) PMhx/Soc Medical and Surgical Hx: pt denies Surgical Hx History of Surgery: No Anesthesia Reaction: No Hx Neurological Disorder: No Hx Respiratory Disorders: No Hx Cardiac Disorders: No Hx Psychiatric Problems: No Hx Miscellaneous Medical Probl: Yes (SYPHILIS, ATHLETES FOOT AND DM) Hx Alcohol Use: Yes (SOCIALLY) Hx Substance Use: Yes (METH) Hx Tobacco Use: Yes Smoking Status: Current every day smoker Physical Exam Vitals Vital Signs Date Time Temp Pulse Resp B/P Pulse Ox O2 Delivery O2 Flow Rate FiO2 03/03/17 03:34 98.3 122 24 143/107 98 Physical Exam Const: [] Head: Atraumatic Eyes: Normal Conjunctiva ENT: Normal External Ears, Nose and Mouth. Neck: Full range of motion..~ No meningismus. Resp: Clear to auscultation bilaterally Cardio: Regular rate and rhythm, no murmurs Abd: Soft, non tender, non distended. Normal bowel sounds Skin: No petechiae or rashes Back: No midline or flank tenderness Ext: No cyanosis, or edema Neur: Awake and alert Psych: Normal Mood and Affect Results 24 hrs Current Medications Medications (Trade) Dose Ordered Sig/Claribel Route PRN Reason Start Time Stop Time Status Last Admin Dose Admin Lorazepam (Ativan) 2 mg ONCE ONCE PO 03/03/17 04:30 03/03/17 04:31 DC 03/03/17 04:28 Procedures/MDM Medical decision-makin-year-old female comes in essentially for dental pain. Patient given Ativan secondary to methamphetamine use. She will be discharged home. Advised stop using meth Departure Diagnosis: Primary Impression: Toothache Condition: Stable HUMA ANDRADE Mar 03, 2017 05:34
== END 2017-03-03 05:44 | disposition left against medical advice (07) ==
LOC: E/R 03:17
DX: K08.89 Other specified disorders of teeth and supporting structures (principal); E11.9 Type 2 diabetes mellitus without complications; F17.210 Nicotine dependence, cigarettes, uncomplicated; Z79.4 Long term (current) use of insulin; Z79.84 Long term (current) use of oral hypoglycemic drugs
CPT/HCPCS: 99283

== ENCOUNTER 2017-08-27 11:57 | Emergency (ER) | END 2017-08-29 08:39 ==

== ENCOUNTER 2018-05-19 20:09 | Observation (INO) | payer MEDICARE, OTHER ==
[~2018-05-19] VITALS: Ht 165.1 cm; Wt 67.8 kg
[~2018-05-19 20:09] MED LIST changes: -AMOX1TAB10 PO; -FLUC150T17 PO; -IBUP-1542 PO; +METF500T24 PO; -METF500T4 PO; -TRAM50TA2 PO
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
[2018-05-19] MEDS ORDERED: SOD CHLORIDE 0.9% 680 ML IV ONE (23:00)
[2018-05-19] MEDS ORDERED: GLUCOSE GEL 15 GRAM TUBE PO PRN ×2 (23:45)
[2018-05-19] MEDS ORDERED: GLUCOSE GEL 15 GRAM TUBE BUCCAL PRN (23:45)
[2018-05-19] MEDS ORDERED: DEXTROSE 50% 50 ML SYRINGE IV PRN ×2 (23:45)
[2018-05-19] MEDS ORDERED: GLUCAGON 1 MG INJ IM PRN (23:45)
[2018-05-20] MEDS ORDERED: INSULIN GLARGINE [LANTus] (100 UNITS/ML) SYG SC SCH
[2018-05-20] MEDS ORDERED: INSULIN REGULAR, HUMAN 100 UNIT/1 ML 3ML VIAL IVP ONE (00:08)
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
[2018-05-20] MEDS ORDERED: INSULIN LISPRO 100 UNIT/ML VIAL SC ONE (00:30)
[2018-05-20] MEDS ORDERED: NACL 0.9% 3 ML SYG IV SCH (00:30)
[2018-05-20] MEDS ORDERED: IBUPROFEN 600 MG TAB PO PRN (00:30)
[2018-05-20] MEDS ORDERED: INSULIN REGULAR, HUMAN 100 UNIT/1 ML 3ML VIAL SC ONE (00:30)
[2018-05-20] MEDS ORDERED: INSULIN GLARGINE [LANTus] (100 UNITS/ML) SYG SC ONE (00:30)
[2018-05-20] MEDS ORDERED: INSULIN REGULAR, HUMAN 100 UNIT/1 ML 3ML VIAL IV ONE (01:30)
[2018-05-20] MEDS ORDERED: ACCU-CHEK XX SCH (02:00)
[2018-05-20 04:39] VITALS: BP 119/75; PULSE 104; RESP 20
[2018-05-20 04:40] VITALS: Ht 165.1 cm; Wt 67.8 kg
[2018-05-20 05:00] VITALS: PULSE 104
[2018-05-20 07:09] VITALS: BP 118/73; PULSE 109; RESP 20
[2018-05-20] MEDS ORDERED: INSULIN ASPART [NOVOLOG] 3 ML PEN SC SCH ×2 (08:00)
[2018-05-20] MEDS ORDERED: metFORMIN 500 MG TAB PO SCH ×2 (08:00)
[2018-05-20 08:14] VITALS: PULSE 80
[2018-05-20] MEDS ORDERED: HEPARIN 5,000 UNIT/1 ML VIAL SC SCH (09:00)
[2018-05-20] MEDS ORDERED: LISINOPRIL 5 MG TAB PO SCH (09:00)
[2018-05-20] MEDS ORDERED: FLUOXETINE 20 MG CAP PO SCH (09:00)
--- NOTE | 2018-05-20 10:06 | PDOCDIS ---
Discharge Instructions DIAGNOSIS Discharge Diagnosis Hyperglycemia CONDITION [id number] Patient Condition: [id number] Good HOME CARE INSTRUCTIONS: [id number] Special Diet: [id number] Controlled carbohydrate diet FOLLOW UP/APPOINTMENTS Follow-up Plan 1. Take all medications as prescribed. 2. See your primary care doctor in 1-2 weeks JOHNNIE RODRIGUEZ MD May 20, 2018 10:06
[2018-05-20] MEDS ORDERED: MONT10TA24 PO (10:07)
[2018-05-20] MEDS ORDERED: INSU100C SQ (10:07)
[2018-05-20] MEDS ORDERED: FLUO20CA38 PO (10:07)
[2018-05-20] MEDS ORDERED: QUET150T PO (10:07)
[2018-05-20] MEDS ORDERED: LISI-313 PO (10:07)
[2018-05-20] MEDS ORDERED: METF500T24 PO (10:07)
[2018-05-20] MEDS ORDERED: LANT3I SC (10:07)
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
[2018-05-20] MEDS ORDERED: MONTELUKAST 10 MG TAB PO SCH (21:00)
== END 2018-05-20 12:42 | disposition home or self-care (01) ==
LOC: E/R 20:09 → 6WM 23:32
PROVIDERS: ADMIT Internal Medicine; ATTEND Internal Medicine
DX: E11.65 Type 2 diabetes mellitus with hyperglycemia (principal); E11.00 Type 2 diabetes mellitus with hyperosmolarity without nonketotic hyperglycemic-hyperosmolar coma (NKHHC); Z79.4 Long term (current) use of insulin; F15.10 Other stimulant abuse, uncomplicated; K02.9 Dental caries, unspecified; Z59.0 Homelessness; F29 Unspecified psychosis not due to a substance or known physiological condition
CPT/HCPCS: 36415; 80048; 80307; 81003; 82803; 82962; 83036; 83735; 84100; 84702; 85025; 99285; G0378; J1644; J1815; J7030

== ENCOUNTER 2018-08-08 16:39 | Inpatient (IN) | payer MEDICARE, OTHER ==
[~2018-08-08] VITALS: Ht 162.6 cm; Wt 63.6 kg
[~2018-08-08 16:39] MED LIST changes: -QUET150T PO; +QUET150T2 PO
[2018-08-08] MEDS ORDERED: ACETAMINOPHEN 325 MG TAB PO STA (17:01)
[2018-08-08] MEDS ORDERED: SODIUM CHLORIDE 0.9% 1L BAG IV* STA (17:01)
[2018-08-08] MEDS ORDERED: CEFEPIME 2GM/50 ML (PMX) 50 ML IVPB STA (17:26)
[2018-08-08] MEDS ORDERED: VANCOMYCIN 1 GM (PMX) 250 ML IVPB ONE (17:30)
[2018-08-08] MEDS ORDERED: DEXTROSE 50% 50 ML SYRINGE IV PRN ×4 (18:30→20:00)
[2018-08-08] MEDS: ACCU-CHEK XX SCH ×8 (19:00→23:17)
[2018-08-08] MEDS ORDERED: NS + KCL 40 MEQ 1,000 ML IV SCH (19:34)
[2018-08-08] MEDS ORDERED: SOD CHLORIDE 0.9% 1,000 ML IV SCH (19:34)
[2018-08-08] MEDS ORDERED: D10/0.45% NACL + KCL 30 MEQ 1,000 ML IV SCH (19:34)
[2018-08-08] MEDS ORDERED: D10/0.45% NACL + KCL 40 MEQ 1,000 ML IV SCH (19:34)
[2018-08-08] MEDS ORDERED: NS + KCL 30 MEQ 1,000 ML IV SCH (19:34)
[2018-08-08] MEDS ORDERED: DEXTROSE 10%/0.45% NACL 1,000 ML IV SCH (19:34)
--- NOTE | 2018-08-08 19:57 | ERD ---
ER Documentation Chief Complaint Chief Complaint sinus pain, cough & congestion, needs rx:gulcose meter. HPI This very pleasant 48 female complains of sinus pain cough congestion. Patient states that she has not been checking her blood sugars as well. She denies any fevers chills. Denies any nausea vomiting denies any other current complaints. Code sepsis called immediately from triage given vital signs and flagging. ROS All systems reviewed and are negative except as per history of present illness. Medications Home Meds Active Scripts Montelukast Sodium* (Montelukast Sodium*) 10 Mg Tablet, 10 MG PO QHS, #30 TAB Prov:JONHNIE RODRIGUEZ MD 05/20/18 Insulin Glargine* (Lantus*) 100 Unit/Ml Soln, 45 UNIT SC QHS, #1 VIAL Prov:JOHNNIE RODRIGUEZ MD 05/20/18 Insulin Lispro (Humalog) 100 Unit/1 Ml Cartridge, 10 UNIT SQ BEFORE MEALS, #30 ML Prov:JOHNNIE RODRIGUEZ MD 05/20/18 Lisinopril* (Lisinopril*) 5 Mg Tablet, 5 MG PO DAILY, #30 TAB Prov:JOHNNIE RODRIGUEZ MD 05/20/18 Quetiapine Fumarate* (Seroquel* XR) 150 Mg Tab.sr.24h, 150 MG PO DAILY, #30 TAB Prov:JOHNNIE RODRIGUEZ MD 05/20/18 Metformin Hcl* (Metformin Hcl*) 500 Mg Tablet, 500 MG PO WITH BREAKFAST, #30 TAB Prov:JOHNNIE RODRIGUEZ MD 05/20/18 Fluoxetine Hcl* (Prozac*) 20 Mg Capsule, 20 MG PO DAILY, #30 CAP Prov:JOHNNIE RODRIGUEZ MD 05/20/18 Allergies Allergies: Coded Allergies: No Known Allergy (Unverified , 08/08/18) PMhx/Soc History of Surgery: Yes Anesthesia Reaction: No Hx Neurological Disorder: Yes (CVA) Hx Respiratory Disorders: Yes (ASTHMA) Hx Cardiac Disorders: Yes (HTN) Hx Psychiatric Problems: Yes (PSYCHOSIS) Hx Miscellaneous Medical Probl: Yes (STD, SYPHILLIS, ATHLETS FOOTS) Hx Alcohol Use: Yes (high alcohol level) Hx Substance Use: Yes (* AMPHETAMINES) Hx Tobacco Use: Yes (with cig and lisw) Physical Exam Vitals Vital Signs Date Temp Pulse Resp B/P (MAP) Pulse Ox O2 O2 Flow FiO2 Time Delivery Rate 08/08/18 99.2 110 18 127/89 94 Room Air 18:56 (102) 08/08/18 Nasal 17:30 Cannula 08/08/18 102.0 125 20 127/86 94 Room Air 17:30 (100) 08/08/18 101.3 125 20 138/77 95 16:47 (97) Physical Exam Const: No acute distress Head: Atraumatic Eyes: Normal Conjunctiva ENT: Normal External Ears, Nose and Mouth. Neck: Full range of motion. No meningismus. Resp: Clear to auscultation bilaterally Cardio: Regular rate and rhythm, no murmurs Abd: Soft, non tender, non distended. Normal bowel sounds Skin: No petechiae or rashes Back: No midline or flank tenderness Ext: No cyanosis, or edema Neur: Awake and alert Psych: Normal Mood and Affect Result Diagram: 08/08/18 1718 08/08/18 1718 Results 24 hrs Laboratory Tests Test 08/08/18 17:15 08/08/18 17:18 08/08/18 19:28 POC Venous Lactate 2.3 mmol/L White Blood Count 12.6 10^3/ul Red Blood Count 3.82 10^6/ul Hemoglobin 10.9 g/dl Hematocrit 34.9 % Mean Corpuscular Volume 91.4 fl Mean Corpuscular Hemoglobin 28.5 pg Mean Corpuscular 31.2 g/dl Hemoglobin Concent Red Cell Distribution Width 12.0 % Platelet Count 657 10^3/UL Mean Platelet Volume 9.0 fl Immature Granulocytes % 1.700 % Neutrophils % % Segmented Neutrophils % (Manual) 78 % Band Neutrophils % (Manual) 1 % Lymphocytes % % Lymphocytes % (Manual) 12 % Monocytes % % Monocytes % (Manual) 9 % Eosinophils % % Basophils % % Nucleated Red Blood Cells % 0.0 /100WBC Immature Granulocytes # 0.210 10^3/ul Neutrophils # 10^3/ul Neutrophils # (Manual) 9.8 10^3/ul Band Neutrophils # 0.1 10^3/ul Lymphocytes (Manual) 1.5 10^3/ul Lymphocytes # 10^3/ul Monocytes # 10^3/ul Monocytes # (Manual) 1.1 10^3/ul Eosinophils # 10^3/ul Basophils # 10^3/ul Nucleated Red Blood Cells # 10^3/ul Platelet Estimate INCREASED Prothrombin Time 13.6 Sec Prothrombin Time Ratio 1.1 INR International Normalized Ratio 1.03 Activated Partial Thromboplast 28.4 Sec Time Sodium Level 129 mmol/L Potassium Level 4.8 mmol/L Chloride Level 91 mmol/L Carbon Dioxide Level 25 mmol/L Anion Gap 13 Blood Urea Nitrogen 10 mg/dl Creatinine 0.51 mg/dl Est Glomerular Filtrat Rate mL/min > 60 mL/min Glucose Level 934 mg/dl Calcium Level 9.1 mg/dl Total Bilirubin 0.1 mg/dl Direct Bilirubin 0.00 mg/dl Indirect Bilirubin 0.1 mg/dl Aspartate Amino Transf (AST/SGOT) 16 IU/L Alanine 14 IU/L Aminotransferase (ALT/SGPT) Alkaline Phosphatase 144 IU/L Troponin I < 0.012 ng/ml Total Protein 7.0 g/dl Albumin 3.6 g/dl Globulin 3.40 g/dl Albumin/Globulin Ratio 1.05 Bedside Glucose > 595 mg/dL Current Medications Medications Dose Sig/Claribel Start Time Status Last (Trade) Ordered Route PRN Stop Time Admin Dose Reason Admin Sodium 1,910 ml BOLUS OVER 2 08/08/18 DC 08/08/18 Chloride HOURS STAT 17:01 17:25 (NS) IV* 08/08/18 17:03 650 mg ONCE STAT 08/08/18 DC 08/08/18 Acetaminophen PO 17:01 17:26 (Tylenol 08/08/18 17:03 Tab) Cefepime HCl 50 ml @ ONCE STAT 08/08/18 DC 08/08/18 100 mls/hr IVPB 17:26 18:56 08/08/18 17:55 Vancomycin 250 ml @ ONCE ONCE 08/08/18 DC 08/08/18 HCl 125 mls/hr IVPB 17:30 19:42 08/08/18 19:29 Discontinue PROTOCOL 08/08/18 DC Miscellaneous all previ... ONCE XX 18:30 08/08/18 18:31 Information (* Miscellaneous Pharmacy Order) Diagnostic 1 ea Q1H XX 08/08/18 Test (Pha) 19:00 (Accu-Chek) Insulin 100 ml @ 0 PER 08/08/18 Human mls/hr PROTOCOL IV 18:30 Regular 100 unit/ Sodium Chloride Treatment Per 08/08/18 Miscellaneous of protocol XX 18:30 Hypoglycemia: Information 1.BG 51... (* Miscellaneous Pharmacy Order) Dextrose 25 ml Q15M PRN 08/08/18 (D50w IV 18:30 Syringe) .DECREASED GLUCOSE Dextrose 50 ml Q15M PRN 08/08/18 (D50w IV 18:30 Syringe) .DECREASED GLUCOSE IV Flush 3 ml PER 08/08/18 UNV (NS 3 ml) PROTOCOL IV 20:00 Ondansetron 4 mg Q6H PRN 08/08/18 UNV HCl (Zofran IV 20:00 Inj) NAUSEA/VOMITI NG 650 mg Q6H PRN 08/08/18 UNV Acetaminophen PO .PAIN 1-3 20:00 (Tylenol OR TEMP Tab) 1 tab Q6H PRN 08/08/18 UNV Acetaminophen PO .MOD PAIN 20:00 / 4-6 Hydrocodone Bitart ([place] (5/325)) Morphine 2 mg Q4H PRN 08/08/18 UNV Sulfate IV .SEVERE 20:00 (morphine) PAIN 7-10 Docusate 100 mg Q12H PRN 08/08/18 UNV Sodium PO 20:00 (Colace) .CONSTIPATION Magnesium 30 ml DAILY PRN 08/08/18 UNV Hydroxide PO 20:00 (Milk Of Mag) .CONSTIPATION Heparin 5,000 unit Q12 SC 08/08/18 UNV Sodium 21:00 (Porcine) (Heparin (5000 Units/1ml)) Lorazepam 0.5 mg Q6H PRN 08/08/18 UNV (Ativan) IV ANXIETY 20:00 Sodium 1,000 ml @ Q8H IV 08/08/18 UNV Chloride 125 mls/hr 19:34 Albuterol/ 3 ml Q4H RESP 08/08/18 UNV Ipratropium THERAPY PRN 20:00 (Duoneb) HHN SHORTNESS OF BREATH Hydralazine 10 mg Q6H PRN 08/08/18 UNV HCl IV ELEVATED 20:00 (Apresoline) BLOOD PRESSURE 1 tab Q5M PRN 08/08/18 UNV Nitroglycerin SL ANGINA 20:00 (Nitroglyceri n (Sl Tab) 0.4 Mg) Dextrose 50 ml Q15M PRN 08/08/18 UNV (D50w IV For BS 50 20:00 Syringe) or less Dextrose 25 ml Q15M PRN 08/08/18 UNV (D50w IV BS 20:00 Syringe) between 50-70 Diagnostic 1 ea Q1H XX 08/08/18 UNV Test (Pha) 20:00 (Accu-Chek) HYPOGLYCEM 08/08/18 UNV Miscellaneous HYPOGLYCEMIA PROTOCOL PRN 20:00 TREATMENT XX Information Hypoglycemia (* (BS < 70) Miscellaneous Pharmacy Order) Potassium 1,000 ml @ Q0M IV 08/08/18 UNV Chloride/Sodi 0 mls/hr 19:34 um Chloride Potassium 1,000 ml @ Q0M IV 08/08/18 UNV Chloride/Dext 0 mls/hr 19:34 annamarie/ Sod Cl Potassium 1,000 ml @ Q0M IV 08/08/18 UNV Chloride/Sodi 0 mls/hr 19:34 um Chloride Potassium 1,000 ml @ Q0M IV 08/08/18 UNV Chloride/Dext 0 mls/hr 19:34 annamarie/ Sod Cl Sodium 1,000 ml @ Q0M IV 08/08/18 UNV Chloride 0 mls/hr 19:34 1,000 ml @ Q0M IV 08/08/18 UNV Dextrose/Sodi 0 mls/hr 19:34 um Chloride Insulin 101 ml @ DKA 08/08/18 UNV Human 6.42 mls/hr PROTOCOL IV 20:00 Regular 100 unit/ Sodium Chloride Please ONCE ONCE 08/08/18 UNV Miscellaneous discontinue XX 20:00 ... 08/08/18 20:01 Information (* Miscellaneous Pharmacy Order) Fluoxetine 20 mg DAILY PO 08/09/18 UNV HCl 09:00 (Prozac) Montelukast 10 mg QHS PO 08/08/18 UNV Sodium 21:00 (Singulair) Procedures/MDM Patient's infectious symptoms have not stabilized and the patient is at risk of rapid decompensation. The patient will be admitted for careful hydration, antibiotic therapy, and infectious source control. Severe Sepsis Assessment: Infectious Source: Pneumonia End organ damage indicated by: [Lactate > 2.0 mmol/L Severe Sepsis Managment: Blood Cultures X 2 before broad spectrum antibiotics initiated within 3 hours of recognition. Recognized at 1640 30 ml/kg NS bolus Completed Initial Lactate: 2.7 Repeat Lactate pending Critical Care: Time: 45 minutes, independent of any separately billable procedural time Treatments/Evaluations: Emergent fluid management, while maintaining close respiratory support. Immediate broad spectrum antibiotic therapy. Simultaneous assessment for possible sources in order to direct therapy. Consideration for invasive and chemical support to prevent respiratory or cardiac collapse. Septic Shock Assessment (1 hour post 30 ml/kg fluid bolus): Hypotension (SBP < 90 or 40 mmHg drop, MAP < 65): [No] Lactic acid > 4.0 [No] Perfusion Reassessment for Septic Shock: Temp 90.6, pulse 88, respiratory rate 16, blood pressure 117/77 Heart Exam: [Tachycardic] Lung Exam: [No Crackles] Capillary Refill: [Delayed] Peripheral Pulses: [Radially present] Skin: [Mottled, pale] Patient has also has severely elevated blood sugars. No evidence of diabetic ketoacidosis, started on critical care insulin infusion. Patient will be admitted to the intensive care unit to the hospitalist team who was made aware Accepting Care Team: Current data and ongoing care discussed. Time: 5 PM Primary Provider: Hospitalist team Consulting: Deferred to inpatient Outstanding Data: none EKG: Rate/Rhythm: [Normal Sinus Rhythm] QRS, ST, T-waves: [No changes consistent w/ acute ischemia] Impression: [No evidence of ischemia or arrhythmia] Chest X-ray 1V Interpreted by me: Soft Tissue: No acute abnormalities Bones: No acute abnormalities Mediastinum/Cardiac Silhouette/Lungs: [No acute abnormalities] Departure Diagnosis: Primary Impression: Sepsis Sepsis type: sepsis due to unspecified organism Qualified Codes: A41.9 - Sepsis, unspecified organism Additional Impression: Hyperglycemia Condition: Critical HUMA ANDRADE August 08, 2018 19:57
[2018-08-08] MEDS ORDERED: NITROGLYCERIN (SL) 0.4 MG TAB SL PRN (20:00)
[2018-08-08] MEDS ORDERED: DOCUSATE SODIUM 100 MG CAP PO PRN (20:00)
[2018-08-08] MEDS ORDERED: hydrALAzine 20 MG INJ IV PRN (20:00)
[2018-08-08] MEDS ORDERED: ACETAMINOPHEN 325 MG TAB PO PRN (20:00)
[2018-08-08] MEDS ORDERED: ALBUTEROL/IPRATROPIUM (NEB) 3 ML AMP HHN PRN (20:00)
[2018-08-08] MEDS ORDERED: morphine 2 MG INJ IV PRN (20:00)
[2018-08-08] MEDS ORDERED: INSULIN REGULAR, HUMAN 100 UNIT in SOD CHLORIDE 0.9% 100 ML IV SCH ×2 (20:00)
[2018-08-08] MEDS ORDERED: MAGNESIUM HYDROXIDE 30ML CUP PO PRN (20:00)
[2018-08-08] MEDS ORDERED: ONDANSETRON 4 MG INJ IV PRN (20:00)
[2018-08-08] MEDS ORDERED: NACL 0.9% 3 ML SYG IV SCH (20:00)
[2018-08-08] MEDS ORDERED: HYDROCODONE/APAP (5/325) TAB PO PRN (20:00)
[2018-08-08] MEDS ORDERED: LORAZEPAM 2 MG INJ IV PRN (20:00)
[2018-08-08] MEDS: INSULIN HUMAN REGULAR 100 UNIT in SOD CHLORIDE 0.9% 99 ML IV SCH (20:02)
[2018-08-08] MEDS: SOD CHLORIDE 0.9% 1,000 ML IV SCH (20:25)
[2018-08-08] MEDS: MONTELUKAST 10 MG TAB PO SCH (21:00)
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
[2018-08-09] VITALS (8 sets, daily range): BP systolic 133–151; BP diastolic 92–100; PULSE 94–107; RESP 18–20; Ht 162.6 cm; Wt 63.6 kg
[2018-08-09] MEDS: ACCU-CHEK XX SCH ×5 (01:31→05:56)
[2018-08-09] MEDS: INSULIN HUMAN REGULAR 100 UNIT in SOD CHLORIDE 0.9% 99 ML IV SCH (06:00)
[2018-08-09] MEDS: SOD CHLORIDE 0.9% 1,000 ML IV SCH ×3 (06:05→20:27)
[2018-08-09] MEDS: HEPARIN 5,000 UNIT/1 ML VIAL SC SCH ×3 (06:05→20:44)
[2018-08-09] MEDS ORDERED: INSULIN ASPART [NOVOLOG] 3 ML PEN SC SCH ×5 (06:30→18:00)
[2018-08-09] MEDS ORDERED: INSULIN GLARGINE [LANTus] (100 UNITS/ML) SYG SC SCH ×3 (09:00→20:00)
[2018-08-09] MEDS: FLUOXETINE 20 MG CAP PO SCH (10:19)
[2018-08-09] MEDS ORDERED: GLUCOSE GEL 15 GRAM TUBE BUCCAL PRN (11:30)
[2018-08-09] MEDS ORDERED: GLUCAGON 1 MG INJ IM PRN (11:30)
[2018-08-09] MEDS ORDERED: DEXTROSE 50% 50 ML SYRINGE IV PRN ×2 (11:30)
[2018-08-09] MEDS ORDERED: GLUCOSE GEL 15 GRAM TUBE PO PRN ×2 (11:30)
[2018-08-09] MEDS: INSULIN ASPART [NOVOLOG] 3 ML PEN SC SCH ×4 (11:57→20:43)
--- NOTE | 2018-08-09 13:22 | PN ---
Date/Time of Note Date/Time of Note DATE: 08/09/18 TIME: :21 Assessment/Plan VTE Prophylaxis Pharmacological prophylaxis: NA/contraindicated Pharm contraindication: low risk/ambulating Lines/Catheters IV Catheter Type (from Nrs): Peripheral IV Assessment/Plan Hospital Course SUBJECTIVE: Complains of a cough. OBJECTIVE: Physical Exam General: Adequately build 48 year-old female lying in bed in no apparent distress. HEENT: Normocephalic, atraumatic. Eyes: Anicteric sclerae, conjunctivae clear. ENT: Nasal septum midline, oral mucosa moist. Neck supple, no JVD noticed. Respiratory: Bilaterally diminished breath sounds. No use of accessory muscles of respiration. No adventitious breath sounds. Cardiovascular: S1, S2 heard. Regular rate and rhythm. Abdomen: Soft, nontender, and nondistended. Bowel sounds positive in all 4 quadrants. Genitourinary: Deferred. Extremities: No cyanosis, no clubbing, no edema. Peripheral pulses palpable. Neurologic: Cranial nerves II through XII grossly intact. The patient is awake, alert, and oriented. Skin: Normal skin turgor. No skin rashes. Labs & Vitals per chart ASSESSMENT & PLAN 48-year-old female with comorbidities including diabetes mellitus type 2 who is noncompliant with her medication, schizophrenia, and substance abuse who pr esented to the emergency room with complaints of cough and congestion, who was found to have evidence of underlying hyperglycemia (934), with no evidence of DKA, and sepsis with leukocytosis, lactic acidosis, febrile illness, and tachycardia. 1. Hyperglycemia. -No evidence of DKA. -Status post insulin drip. -Currently on sliding scale insulin along with pre-meal insulin and basal insulin. -Endocrinology evaluation. 2. Sepsis with leukocytosis, febrile illness, lactic acidosis, tachycardia pr esent on admission. -Most likely secondary to tracheobronchitis versus early pneumonia. -Continue antimicrobials. 3. Hyponatremia. -Most probably secondary to underlying hyperglycemia. -Resolved. 4. Schizophrenia. -Continue antipsychotics. 5. Substance abuse. -Cessation advised. 6. Homeless status -Social work consult. 7. Fluids, electrolytes, and nutrition. -Carbohydrate controlled diet. 8. DVT prophylaxis. -Bilateral SCDs. 9. Plan. -Continue antimicrobials -Insulin management as per endocrinology. -Await clinical improvement. The patient was seen in collaboration with Dr. Sarah. Result Diagram: 5/13/19 0755 08/09/18 0755 Results 24hrs Laboratory Tests Test 08/08/18 17:15 08/08/18 17:16 08/08/18 17:17 08/08/18 17:18 POC Venous Lactate 2.3 *H Hemoglobin A1c Free Thyroxine 1.38 White Blood Count 12.6 #H Red Blood Count 3.82 #L Hemoglobin 10.9 #L Hematocrit 34.9 #L Mean Corpuscular 91.4 Volume Mean Corpuscular 28.5 L Hemoglobin Mean Corpuscular 31.2 L Hemoglobin Concent Red Cell 12.0 Distribution Width Platelet Count 657 #H Mean Platelet Volume 9.0 Immature 1.700 H Granulocytes % Neutrophils % Segmented 78 H Neutrophils % (Manual) Band Neutrophils % 1 (Manual) Lymphocytes % Lymphocytes % 12 L (Manual) Monocytes % Monocytes % (Manual) 9 Eosinophils % Basophils % Nucleated Red Blood 0.0 Cells % Immature 0.210 H Granulocytes # Neutrophils # Neutrophils # 9.8 H (Manual) Band Neutrophils # 0.1 Lymphocytes (Manual) 1.5 Lymphocytes # Monocytes # Monocytes # (Manual) 1.1 H Eosinophils # Basophils # Nucleated Red Blood Cells # Platelet Estimate INCREASED Prothrombin Time 13.6 Prothrombin Time 1.1 Ratio INR International 1.03 Normalized Ratio Activated 28.4 Partial Thromboplast Time Sodium Level 129 L Potassium Level 4.8 Chloride Level 91 L Carbon Dioxide Level 25 Anion Gap 13 Blood Urea Nitrogen 10 Creatinine 0.51 Est Glomerular > 60 Filtrat Rate mL/min Glucose Level 934 *H Calcium Level 9.1 Total Bilirubin 0.1 L Direct Bilirubin 0.00 Indirect Bilirubin 0.1 Aspartate Amino 16 Transf (AST/SGOT) Alanine 14 Aminotransferase (AL T/SGPT) Alkaline Phosphatase 144 H Troponin I < 0.012 Total Protein 7.0 Albumin 3.6 Globulin 3.40 H Albumin/Globulin 1.05 Ratio Test 08/08/18 19:28 08/08/18 19:56 08/08/18 21:10 08/08/18 22:18 Bedside Glucose > 595 *H 484 *H 383 H Urine Color COLORLESS Urine Clarity CLEAR Urine pH 7.0 Urine Specific 1.027 Arthur Urine Ketones NEGATIVE Urine Nitrite NEGATIVE Urine Bilirubin NEGATIVE Urine Urobilinogen NEGATIVE Urine Leukocyte NEGATIVE Esterase Urine Hemoglobin NEGATIVE Urine Glucose 3+ H Urine Total Protein NEGATIVE Glucose Level 683 #*H Lactic Acid Level 0.9 Test 08/08/18 23:16 08/09/18 00:24 08/09/18 01:20 08/09/18 02:31 Bedside Glucose 313 H 308 H 204 152 Test 08/09/18 03:48 08/09/18 05:56 08/09/18 07:32 08/09/18 07:55 Bedside Glucose 148 191 158 White Blood Count 11.3 H Red Blood Count 3.82 L Hemoglobin 11.0 L Hematocrit 33.9 L Mean Corpuscular 88.7 Volume Mean Corpuscular 28.8 L Hemoglobin Mean Corpuscular 32.4 Hemoglobin Concent Red Cell 11.9 Distribution Width Platelet Count 664 H Mean Platelet Volume 8.5 Immature 1.800 H Granulocytes % Neutrophils % 67.5 Lymphocytes % 23.2 Monocytes % 5.9 Eosinophils % 1.3 Basophils % 0.3 Nucleated Red Blood 0.0 Cells % Immature 0.200 H Granulocytes # Neutrophils # 7.6 H Lymphocytes # 2.6 Monocytes # 0.7 Eosinophils # 0.2 Basophils # 0.0 Nucleated Red Blood 0.0 Cells # Sodium Level 140 Potassium Level 3.9 Chloride Level 105 # Carbon Dioxide Level 29 Anion Gap 6 Blood Urea Nitrogen 8 Creatinine 0.35 L Est Glomerular > 60 Filtrat Rate mL/min Glucose Level 160 # Hemoglobin A1c Calcium Level 8.6 Phosphorus Level 3.2 Magnesium Level 2.1 Triglycerides Level 56 Cholesterol Level 109 LDL Cholesterol, 58 Calculated HDL Cholesterol 40 Cholesterol/HDL 2.7 Ratio Thyroid Stimulating 0.530 Hormone (TSH) Test 08/09/18 09:44 08/09/18 11:35 Bedside Glucose 272 H 311 H Exam/Review of Systems Exam Vitals Vital Signs Date Temp Pulse Resp B/P (MAP) Pulse Ox O2 O2 Flow FiO2 Time Delivery Rate 08/09/18 98 12:07 08/09/18 98.0 18 133/97 97 Room Air 11:33 (109) Intake and Output 08/08/18 08/08/18 08/09/18 1414:59 22:59 06:59 IntakeIntake Total 2216 ml BalanceBalance 2216 ml Results Results 24hrs Laboratory Tests Test 08/08/18 17:15 08/08/18 17:16 08/08/18 17:17 08/08/18 17:18 POC Venous Lactate 2.3 *H Hemoglobin A1c Free Thyroxine 1.38 White Blood Count 12.6 #H Red Blood Count 3.82 #L Hemoglobin 10.9 #L Hematocrit 34.9 #L Mean Corpuscular 91.4 Volume Mean Corpuscular 28.5 L Hemoglobin Mean Corpuscular 31.2 L Hemoglobin Concent Red Cell 12.0 Distribution Width Platelet Count 657 #H Mean Platelet Volume 9.0 Immature 1.700 H Granulocytes % Neutrophils % Segmented 78 H Neutrophils % (Manual) Band Neutrophils % 1 (Manual) Lymphocytes % Lymphocytes % 12 L (Manual) Monocytes % Monocytes % (Manual) 9 Eosinophils % Basophils % Nucleated Red Blood 0.0 Cells % Immature 0.210 H Granulocytes # Neutrophils # Neutrophils # 9.8 H (Manual) Band Neutrophils # 0.1 Lymphocytes (Manual) 1.5 Lymphocytes # Monocytes # Monocytes # (Manual) 1.1 H Eosinophils # Basophils # Nucleated Red Blood Cells # Platelet Estimate INCREASED Prothrombin Time 13.6 Prothrombin Time 1.1 Ratio INR International 1.03 Normalized Ratio Activated 28.4 Partial Thromboplast Time Sodium Level 129 L Potassium Level 4.8 Chloride Level 91 L Carbon Dioxide Level 25 Anion Gap 13 Blood Urea Nitrogen 10 Creatinine 0.51 Est Glomerular > 60 Filtrat Rate mL/min Glucose Level 934 *H Calcium Level 9.1 Total Bilirubin 0.1 L Direct Bilirubin 0.00 Indirect Bilirubin 0.1 Aspartate Amino 16 Transf (AST/SGOT) Alanine 14 Aminotransferase (AL T/SGPT) Alkaline Phosphatase 144 H Troponin I < 0.012 Total Protein 7.0 Albumin 3.6 Globulin 3.40 H Albumin/Globulin 1.05 Ratio Test 08/08/18 19:28 08/08/18 19:56 08/08/18 21:10 08/08/18 22:18 Bedside Glucose > 595 *H 484 *H 383 H Urine Color COLORLESS Urine Clarity CLEAR Urine pH 7.0 Urine Specific 1.027 Arthur Urine Ketones NEGATIVE Urine Nitrite NEGATIVE Urine Bilirubin NEGATIVE Urine Urobilinogen NEGATIVE Urine Leukocyte NEGATIVE Esterase Urine Hemoglobin NEGATIVE Urine Glucose 3+ H Urine Total Protein NEGATIVE Glucose Level 683 #*H Lactic Acid Level 0.9 Test 08/08/18 23:16 08/09/18 00:24 08/09/18 01:20 08/09/18 02:31 Bedside Glucose 313 H 308 H 204 152 Test 08/09/18 03:48 08/09/18 05:56 08/09/18 07:32 08/09/18 07:55 Bedside Glucose 148 191 158 White Blood Count 11.3 H Red Blood Count 3.82 L Hemoglobin 11.0 L Hematocrit 33.9 L Mean Corpuscular 88.7 Volume Mean Corpuscular 28.8 L Hemoglobin Mean Corpuscular 32.4 Hemoglobin Concent Red Cell 11.9 Distribution Width Platelet Count 664 H Mean Platelet Volume 8.5 Immature 1.800 H Granulocytes % Neutrophils % 67.5 Lymphocytes % 23.2 Monocytes % 5.9 Eosinophils % 1.3 Basophils % 0.3 Nucleated Red Blood 0.0 Cells % Immature 0.200 H Granulocytes # Neutrophils # 7.6 H Lymphocytes # 2.6 Monocytes # 0.7 Eosinophils # 0.2 Basophils # 0.0 Nucleated Red Blood 0.0 Cells # Sodium Level 140 Potassium Level 3.9 Chloride Level 105 # Carbon Dioxide Level 29 Anion Gap 6 Blood Urea Nitrogen 8 Creatinine 0.35 L Est Glomerular > 60 Filtrat Rate mL/min Glucose Level 160 # Hemoglobin A1c Calcium Level 8.6 Phosphorus Level 3.2 Magnesium Level 2.1 Triglycerides Level 56 Cholesterol Level 109 LDL Cholesterol, 58 Calculated HDL Cholesterol 40 Cholesterol/HDL 2.7 Ratio Thyroid Stimulating 0.530 Hormone (TSH) Test 08/09/18 09:44 08/09/18 11:35 Bedside Glucose 272 H 311 H Medications Medication Current Medications IV Flush (NS 3 ml) 3 ml PER PROTOCOL IV ; Start 08/08/18 at 20:00 Ondansetron HCl (Zofran Inj) 4 mg Q6H PRN IV NAUSEA/VOMITING; Start 08/08/18 at 20:00 Acetaminophen (Tylenol Tab) 650 mg Q6H PRN PO .PAIN 1-3 OR TEMP; Start 08/08/18 at 20:00 Acetaminophen/ Hydrocodone Bitart ([place] (5/325)) 1 tab Q6H PRN PO .MOD PAIN 4- 6; Start 08/08/18 at 20:00 Morphine Sulfate (morphine) 2 mg Q4H PRN IV .SEVERE PAIN 7-10; Start 08/08/18 at 20:00 Docusate Sodium (Colace) 100 mg Q12H PRN PO .CONSTIPATION; Start 08/08/18 at 20:00 Magnesium Hydroxide (Milk Of Mag) 30 ml DAILY PRN PO .CONSTIPATION; Start 08/08/18 at 20:00 Heparin Sodium (Porcine) (Heparin (5000 Units/1ml)) 5,000 unit Q12 SC Last administered on 08/09/18at 10:23; Admin Dose 5,000 UNIT; Start 08/08/18 at 21:00 Lorazepam (Ativan) 0.5 mg Q6H PRN IV ANXIETY; Start 08/08/18 at 20:00 Sodium Chloride 1,000 ml @ 125 mls/hr Q8H IV Last administered on 08/09/18at 11:32; Admin Dose 125 MLS/HR; Start 08/08/18 at 19:34 Albuterol/ Ipratropium (Duoneb) 3 ml Q4H RESP THERAPY PRN HHN SHORTNESS OF BREATH; Start 08/08/18 at 20:00 Hydralazine HCl (Apresoline) 10 mg Q6H PRN IV ELEVATED BLOOD PRESSURE; Start 08/08/18 at 20:00 Nitroglycerin (Nitroglycerin (Sl Tab) 0.4 Mg) 1 tab Q5M PRN SL ANGINA; Start 08/08/18 at 20:00 Fluoxetine HCl (Prozac) 20 mg DAILY PO Last administered on 08/09/18at 10:19; Admin Dose 20 MG; Start 08/09/18 at 09:00 Montelukast Sodium (Singulair) 10 mg QHS PO Last administered on 08/08/18at 21:00; Admin Dose 10 MG; Start 08/08/18 at 21:00 Miscellaneous Information 150 mg DAILY PO ; Start 08/09/18 at 09:00; Status UNV Insulin Aspart (Novolog Insulin Pen) NOVOLOG *MILD* ALGORITHM WITH MEALS BEDTIME SC Last administered on 08/09/18at 11:57; Admin Dose 5 UNIT; Start 08/09/18 at 12:00 Miscellaneous Information 1 ea NOTE XX ; Start 08/09/18 at 11:30 Glucose (Glutose) 15 gm Q15M PRN PO DECREASED GLUCOSE; Start 08/09/18 at 11:30 Glucose (Glutose) 22.5 gm Q15M PRN PO DECREASED GLUCOSE; Start 08/09/18 at 11:30 Dextrose (D50w Syringe) 25 ml Q15M PRN IV DECREASED GLUCOSE; Start 08/09/18 at 11:30 Dextrose (D50w Syringe) 50 ml Q15M PRN IV DECREASED GLUCOSE; Start 08/09/18 at 11:30 Glucagon (Glucagen) 1 mg Q15M PRN IM DECREASED GLUCOSE; Start 08/09/18 at 11:30 Glucose (Glutose) 15 gm Q15M PRN BUCCAL DECREASED GLUCOSE; Start 08/09/18 at 11:30 Insulin Glargine (Lantus) 28 units DAILY@2000 SC ; Start 08/09/18 at 20:00; Status UNV Metformin HCl (Glucophage) 500 mg BID WITH MEALS PO ; Start 08/09/18 at 18:00; Status UNV Insulin Aspart (Novolog Insulin Pen) 14 unit WITH MEALS SC ; Start 08/09/18 at 18:00; Status UNV MAIKOL WARE NP August 09, 2018 13:22
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
[2018-08-09] MEDS: CEFTRIAXONE 1 GM/50 ML (PMX) 50 ML IVPB SCH (14:52)
[2018-08-09] MEDS: AZITHROMYCIN 500MG/NS (PMX) 250 ML IVPB SCH (16:04)
[2018-08-09] MEDS: metFORMIN 500 MG TAB PO SCH (17:38)
[2018-08-09] MEDS: MONTELUKAST 10 MG TAB PO SCH (20:28)
[2018-08-09] MEDS: QUETIAPINE 25 MG TAB PO SCH (20:28)
[2018-08-10] VITALS (10 sets, daily range): BP systolic 130–151; BP diastolic 89–106; PULSE 88–104; RESP 18–19
[2018-08-10] MEDS ORDERED: ACCU-CHEK XX SCH (02:00)
[2018-08-10] MEDS: SOD CHLORIDE 0.9% 1,000 ML IV SCH ×3 (05:34→19:22)
[2018-08-10] MEDS ORDERED: INSULIN ASPART [NOVOLOG] 3 ML PEN SC SCH (08:00)
[2018-08-10] MEDS: metFORMIN 500 MG TAB PO SCH ×2 (08:22→17:30)
[2018-08-10] MEDS: INSULIN ASPART [NOVOLOG] 3 ML PEN SC SCH ×7 (08:23→21:00)
[2018-08-10] MEDS: HEPARIN 5,000 UNIT/1 ML VIAL SC SCH ×2 (08:27→21:32)
[2018-08-10] MEDS: FLUOXETINE 20 MG CAP PO SCH (08:27)
[2018-08-10] MEDS: QUETIAPINE 25 MG TAB PO SCH ×2 (08:29→21:23)
--- NOTE | 2018-08-10 12:27 | PN ---
Date/Time of Note Date/Time of Note DATE: 08/10/18 TIME: 12:27 Assessment/Plan VTE Prophylaxis Risk score (from Ns)>0 risk: 2 SCD applied (from Ns): No SCD contraindicated: other Pharmacological prophylaxis: NA/contraindicated Pharm contraindication: low risk/ambulating Lines/Catheters IV Catheter Type [facility]from [facility] Saline Lock Urinary Cath still in place: No Assessment/Plan Hospital Course SUBJECTIVE: Complains of a cough. OBJECTIVE: Physical Exam General: Adequately build 48 year-old female lying in bed in no apparent distress. HEENT: Normocephalic, atraumatic. Eyes: Anicteric sclerae, conjunctivae clear. ENT: Nasal septum midline, oral mucosa moist. Neck supple, no JVD noticed. Respiratory: Bilaterally diminished breath sounds. No use of accessory muscles of respiration. No adventitious breath sounds. Cardiovascular: S1, S2 heard. Regular rate and rhythm. Abdomen: Soft, nontender, and nondistended. Bowel sounds positive in all 4 quadrants. Genitourinary: Deferred. Extremities: No cyanosis, no clubbing, no edema. Peripheral pulses palpable. Neurologic: Cranial nerves II through XII grossly intact. The patient is awake, alert, and oriented. Skin: Normal skin turgor. No skin rashes. Labs & Vitals per chart ASSESSMENT & PLAN 48-year-old female with comorbidities including diabetes mellitus type 2 who is noncompliant with her medication, schizophrenia, and substance abuse who presented to the emergency room with complaints of cough and congestion, who was found to have evidence of underlying hyperglycemia (934), with no evidence of DKA, and sepsis with leukocytosis, lactic acidosis, febrile illness, and tachycardia. 1. Hyperglycemia. -No evidence of DKA. -Status post insulin drip. -Currently on sliding scale insulin along with pre-meal insulin and basal insulin. -Endocrinology evaluation. 2. Sepsis with leukocytosis, febrile illness, lactic acidosis, tachycardia present on admission. -Most likely secondary to tracheobronchitis versus early pneumonia. -Continue antimicrobials. 3. Hyponatremia. -Most probably secondary to underlying hyperglycemia. -Resolved. 4. Schizophrenia. -Continue antipsychotics. 5. Substance abuse. -Cessation advised. 6. Homeless status -Social work consult. 7. Fluids, electrolytes, and nutrition. -Carbohydrate controlled diet. 8. DVT prophylaxis. -Bilateral SCDs. 9. Plan. -Continue antimicrobials -Insulin management as per endocrinology. -Await clinical improvement. -Repeat CXR. The patient was seen in collaboration with Dr. Sarah. Result Diagram: 08/10/18 0528 08/10/1828 Results 24hrs Laboratory Tests Test 08/09/18 17:17 08/09/18 20:12 08/10/18 01:41 08/10/18 05:28 Bedside Glucose 324 H 228 H 205 White Blood Count 11.1 H Red Blood Count 4.00 L Hemoglobin 11.4 L Hematocrit 35.7 L Mean Corpuscular 89.3 Volume Mean Corpuscular 28.5 L Hemoglobin Mean Corpuscular 31.9 L Hemoglobin Concent Red Cell 12.2 Distribution Width Platelet Count 708 H Mean Platelet Volume 8.7 Immature 2.100 H Granulocytes % Neutrophils % 69.1 Lymphocytes % 23.4 Monocytes % 4.3 Eosinophils % 0.7 Basophils % 0.4 Nucleated Red Blood 0.0 Cells % Immature 0.230 H Granulocytes # Neutrophils # 7.7 H Lymphocytes # 2.6 Monocytes # 0.5 Eosinophils # 0.1 Basophils # 0.0 Nucleated Red Blood 0.0 Cells # Sodium Level 138 Potassium Level 4.6 Chloride Level 106 Carbon Dioxide Level 28 Anion Gap 4 L Blood Urea Nitrogen 13 Creatinine 0.40 L Est Glomerular > 60 Filtrat Rate mL/min Glucose Level 289 #H Calcium Level 8.4 Phosphorus Level 3.0 Magnesium Level 2.0 Procalcitonin 0.04 Test 08/10/18 08:21 Bedside Glucose 324 H Exam/Review of Systems Exam Vitals Vital Signs Date Temp Pulse Resp B/P (MAP) Pulse Ox O2 O2 Flow FiO2 Time Delivery Rate 08/10/18 97 12:24 08/10/18 98.1 18 145/103 98 08:08 (117) 08/10/18 21 02:31 08/09/18 Room Air 15:25 Intake and Output 08/09/18 08/09/18 08/10/18 1515:00 23:00 07:00 IntakeIntake Total 2560 ml 800 ml OutputOutput Total 3 ml BalanceBalance 2560 ml 797 ml Results Results 24hrs Laboratory Tests Test 08/09/18 17:17 08/09/18 20:12 08/10/18 01:41 08/10/18 05:28 Bedside Glucose 324 H 228 H 205 White Blood Count 11.1 H Red Blood Count 4.00 L Hemoglobin 11.4 L Hematocrit 35.7 L Mean Corpuscular 89.3 Volume Mean Corpuscular 28.5 L Hemoglobin Mean Corpuscular 31.9 L Hemoglobin Concent Red Cell 12.2 Distribution Width Platelet Count 708 H Mean Platelet Volume 8.7 Immature 2.100 H Granulocytes % Neutrophils % 69.1 Lymphocytes % 23.4 Monocytes % 4.3 Eosinophils % 0.7 Basophils % 0.4 Nucleated Red Blood 0.0 Cells % Immature 0.230 H Granulocytes # Neutrophils # 7.7 H Lymphocytes # 2.6 Monocytes # 0.5 Eosinophils # 0.1 Basophils # 0.0 Nucleated Red Blood 0.0 Cells # Sodium Level 138 Potassium Level 4.6 Chloride Level 106 Carbon Dioxide Level 28 Anion Gap 4 L Blood Urea Nitrogen 13 Creatinine 0.40 L Est Glomerular > 60 Filtrat Rate mL/min Glucose Level 289 #H Calcium Level 8.4 Phosphorus Level 3.0 Magnesium Level 2.0 Procalcitonin 0.04 Test 08/10/18 08:21 Bedside Glucose 324 H Medications Medication Current Medications IV Flush (NS 3 ml) 3 ml PER PROTOCOL IV ; Start 08/08/18 at 20:00 Ondansetron HCl (Zofran Inj) 4 mg Q6H PRN IV NAUSEA/VOMITING; Start 08/08/18 at 20:00 Acetaminophen (Tylenol Tab) 650 mg Q6H PRN PO .PAIN 1-3 OR TEMP; Start 08/08/18 at 20:00 Acetaminophen/ Hydrocodone Bitart ([place] (5/325)) 1 tab Q6H PRN PO .MOD PAIN 4- 6; Start 08/08/18 at 20:00 Morphine Sulfate (morphine) 2 mg Q4H PRN IV .SEVERE PAIN 7-10; Start 08/08/18 at 20:00 Docusate Sodium (Colace) 100 mg Q12H PRN PO .CONSTIPATION; Start 08/08/18 at 20:00 Magnesium Hydroxide (Milk Of Mag) 30 ml DAILY PRN PO .CONSTIPATION; Start 08/08/18 at 20:00 Heparin Sodium (Porcine) (Heparin (5000 Units/1ml)) 5,000 unit Q12 SC Last administered on 08/10/18at 08:27; Admin Dose 5,000 UNIT; Start 08/08/18 at 21:00 Lorazepam (Ativan) 0.5 mg Q6H PRN IV ANXIETY; Start 08/08/18 at 20:00 Sodium Chloride 1,000 ml @ 125 mls/hr Q8H IV Last administered on 08/10/18at 05:34; Admin Dose 125 MLS/HR; Start 08/08/18 at 19:34 Albuterol/ Ipratropium (Duoneb) 3 ml Q4H RESP THERAPY PRN HHN SHORTNESS OF BREATH; Start 08/08/18 at 20:00 Hydralazine HCl (Apresoline) 10 mg Q6H PRN IV ELEVATED BLOOD PRESSURE; Start 08/08/18 at 20:00 Nitroglycerin (Nitroglycerin (Sl Tab) 0.4 Mg) 1 tab Q5M PRN SL ANGINA; Start 08/08/18 at 20:00 Fluoxetine HCl (Prozac) 20 mg DAILY PO Last administered on 08/10/18at 08:27; Admin Dose 20 MG; Start 08/09/18 at 09:00 Montelukast Sodium (Singulair) 10 mg QHS PO Last administered on 08/09/18at 20:28; Admin Dose 10 MG; Start 08/08/18 at 21:00 Quetiapine Fumarate (Seroquel) 75 mg BID PO Last administered on 08/09/18at 20:28; Admin Dose 75 MG; Start 08/09/18 at 21:00 Miscellaneous Information 1 ea NOTE XX ; Start 08/09/18 at 11:30 Glucose (Glutose) 15 gm Q15M PRN PO DECREASED GLUCOSE; Start 08/09/18 at 11:30 Glucose (Glutose) 22.5 gm Q15M PRN PO DECREASED GLUCOSE; Start 08/09/18 at 11:30 Dextrose (D50w Syringe) 25 ml Q15M PRN IV DECREASED GLUCOSE; Start 08/09/18 at 11:30 Dextrose (D50w Syringe) 50 ml Q15M PRN IV DECREASED GLUCOSE; Start 08/09/18 at 11:30 Glucagon (Glucagen) 1 mg Q15M PRN IM DECREASED GLUCOSE; Start 08/09/18 at 11:30 Glucose (Glutose) 15 gm Q15M PRN BUCCAL DECREASED GLUCOSE; Start 08/09/18 at 11:30 Metformin HCl (Glucophage) 500 mg BID WITH MEALS PO Last administered on 08/10/18at 08:22; Admin Dose 500 MG; Start 08/09/18 at 18:00 Ceftriaxone Sodium 50 ml @ 100 mls/hr Q24H IVPB Last administered on 08/09/18at 14:52; Admin Dose 100 MLS/HR; Start 08/09/18 at 14:30 Azithromycin 250 ml @ 250 mls/hr Q24H IVPB Last administered on 08/09/18at 16:04; Admin Dose 250 MLS/HR; Start 08/09/18 at 16:00 Insulin Aspart (Novolog Insulin Pen) 18 unit WITH MEALS SC ; Start 08/10/18 at 12:00 Insulin Glargine (Lantus) 36 units DAILY@2000 SC ; Start 08/10/18 at 20:00 Insulin Aspart (Novolog Insulin Pen) NOVOLOG *MODERATE* ALGORITHM WITH MEALS BEDTIME SC ; Start 08/10/18 at 12:00 MAIKOL WARE NP August 10, 2018 12:27
--- NOTE | 2018-08-10 13:49 | CONS ---
Assessment/Plan Assessment/Plan Problems: (1) Type 2 diabetes mellitus with hyperglycemia Status: Chronic Comment: Remains profoundly hyperglycemic. Will increase lantus from 28 to 36 units qhs and Novolog from 14 to 18 units qac. Will also double the strength of the correctional scale. Monitor BG values and reeval tomorrow. 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 Consultation Date/Type/Reason Admit Date/Time August 08, 2018 at 18:29 Initial Consult Date 08/09/18 Type of Consult Endocrinology Reason for Consultation [facility] Requesting Provider: HUMA ROGERS MD Date/Time of Note DATE: 08/10/18 TIME: 13:46 24 HR Interval Summary Constitutional: no complaints Detailed Summary Respiratory: cough Cardiovascular: chest pain (L side) Gastrointestinal: no complaints Genitourinary: no complaints Musculoskeletal: no complaints Neurologic: no complaints Exam/Review of Systems Exam Vitals VS - Last 72 Hours, by Label Date Temp Pulse Resp B/P (MAP) Pulse Ox O2 O2 Flow FiO2 Time Delivery Rate 08/10/18 97 12:24 08/10/18 89 08:20 08/10/18 98.1 88 18 145/103 98 08:08 (117) 08/10/18 89 04:00 08/10/18 97.8 89 18 130/89 95 03:55 (103) 08/10/18 95 21 02:31 08/10/18 96 00:00 08/09/18 98.5 94 18 135/96 95 23:54 (109) 08/09/18 95 21 20:20 08/09/18 107 20:00 08/09/18 98.7 107 19 135/92 94 19:47 (106) 08/09/18 101 16:30 08/09/18 98.4 94 20 151/100 99 Room Air 15:25 (117) 08/09/18 98 12:07 08/09/18 98.0 97 18 133/97 97 Room Air 11:33 (109) 08/09/18 98 08:44 08/09/18 92 20 119/96 98 Room Air 08:14 (104) 08/09/18 97.9 92 23 124/96 97 Room Air 07:30 (105) 08/09/18 98.2 93 16 138/99 97 Room Air 06:00 (112) 08/09/18 100 133/95 100 Room Air 05:00 (108) 08/09/18 94 16 120/97 100 Room Air 03:01 (105) 08/09/18 97 24 123/94 98 Room Air 02:00 (104) 08/09/18 99 24 114/88 96 Room Air 01:02 (97) 08/09/18 104 25 106/71 95 Room Air 00:00 (83) 08/08/18 103 23 125/92 96 Room Air 23:01 (103) 08/08/18 106 22 142/100 96 Room Air 22:00 (114) 08/08/18 111 26 126/87 95 Room Air 21:00 (100) 08/08/18 98.9 115 20 123/94 95 Room Air 20:00 (104) 08/08/18 99.2 110 18 127/89 94 Room Air 18:56 (102) 08/08/18 Nasal 17:30 Cannula 08/08/18 102.0 125 20 127/86 94 Room Air 17:30 (100) 08/08/18 101.3 125 20 138/77 95 16:47 (97) Vital Signs Date Temp Pulse Resp B/P (MAP) Pulse Ox O2 O2 Flow FiO2 Time Delivery Rate 08/10/18 97 12:24 08/10/18 98.1 18 145/103 98 08:08 (117) 08/10/18 21 02:31 08/09/18 Room Air 15:25 Intake and Output 08/09/18 08/09/18 08/10/18 1515:00 23:00 07:00 IntakeIntake Total 2560 ml 800 ml OutputOutput Total 3 ml BalanceBalance 2560 ml 797 ml Constitutional: alert, oriented, well developed, other (weak-appearing) Psych: depression Respiratory: clear to auscultation, normal air movement Cardiovascular: regular rate and rhythm, nl pulses, other (L sternal border TTP); No edema, No murmurs/extra sounds, No rub Gastrointestinal: soft, nl liver, spleen, non-tender, bowel sounds; No mass, No rebound or guarding Musculoskeletal: nl extremities to inspection Extremities: normal pulses; No cyanosis, No clubbing, No edema 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, nl mental status, nl speech, nl strength Additional Comments Bedside Glucose - 72 Hours Test 08/08/18 19:28 08/08/18 21:10 08/08/18 22:18 08/08/18 23:16 Bedside > 595 484 383 313 Glucose mg/dL (70-220) mg/dL (70-220) mg/dL (70-220) mg/dL (70-220) *H *H H H Test 08/09/18 00:24 08/09/18 01:20 08/09/18 02:31 08/09/18 03:48 Bedside 308 204 152 148 Glucose mg/dL (70-220) mg/dL (70-220) mg/dL (70-220) mg/dL (70-220) H Test 08/09/18 05:56 08/09/18 07:32 08/09/18 09:44 08/09/18 11:35 Bedside 191 158 272 311 Glucose mg/dL (70-220) mg/dL (70-220) mg/dL (70-220) mg/dL (70-220) H H Test 08/09/18 17:17 08/09/18 20:12 08/10/18 01:41 08/10/18 08:21 Bedside 324 228 205 324 Glucose mg/dL (70-220) mg/dL (70-220) mg/dL (70-220) mg/dL (70-220) H H H Test 08/10/18 12:23 Bedside 289 Glucose mg/dL (70-220) H Results Result Diagram: 08/10/18 0528 08/10/18 0528 Results 24hrs Laboratory Tests Test 08/09/18 17:17 08/09/18 20:12 08/10/18 01:41 08/10/18 05:28 Bedside Glucose 324 H 228 H 205 White Blood Count 11.1 H Red Blood Count 4.00 L Hemoglobin 11.4 L Hematocrit 35.7 L Mean Corpuscular 89.3 Volume Mean Corpuscular 28.5 L Hemoglobin Mean Corpuscular 31.9 L Hemoglobin Concent Red Cell 12.2 Distribution Width Platelet Count 708 H Mean Platelet Volume 8.7 Immature 2.100 H Granulocytes % Neutrophils % 69.1 Lymphocytes % 23.4 Monocytes % 4.3 Eosinophils % 0.7 Basophils % 0.4 Nucleated Red Blood 0.0 Cells % Immature 0.230 H Granulocytes # Neutrophils # 7.7 H Lymphocytes # 2.6 Monocytes # 0.5 Eosinophils # 0.1 Basophils # 0.0 Nucleated Red Blood 0.0 Cells # Sodium Level 138 Potassium Level 4.6 Chloride Level 106 Carbon Dioxide Level 28 Anion Gap 4 L Blood Urea Nitrogen 13 Creatinine 0.40 L Est Glomerular > 60 Filtrat Rate mL/min Glucose Level 289 #H Calcium Level 8.4 Phosphorus Level 3.0 Magnesium Level 2.0 Procalcitonin 0.04 Test 08/10/18 08:21 08/10/18 12:23 Bedside Glucose 324 H 289 H Medications Medication Current Medications IV Flush (NS 3 ml) 3 ml PER PROTOCOL IV ; Start 08/08/18 at 20:00 Ondansetron HCl (Zofran Inj) 4 mg Q6H PRN IV NAUSEA/VOMITING; Start 08/08/18 at 20:00 Acetaminophen (Tylenol Tab) 650 mg Q6H PRN PO .PAIN 1-3 OR TEMP; Start 08/08/18 at 20:00 Acetaminophen/ Hydrocodone Bitart ([place] (5/325)) 1 tab Q6H PRN PO .MOD PAIN 4- 6; Start 08/08/18 at 20:00 Morphine Sulfate (morphine) 2 mg Q4H PRN IV .SEVERE PAIN 7-10; Start 08/08/18 at 20:00 Docusate Sodium (Colace) 100 mg Q12H PRN PO .CONSTIPATION; Start 08/08/18 at 20:00 Magnesium Hydroxide (Milk Of Mag) 30 ml DAILY PRN PO .CONSTIPATION; Start 08/08/18 at 20:00 Heparin Sodium (Porcine) (Heparin (5000 Units/1ml)) 5,000 unit Q12 SC Last administered on 08/10/18at 08:27; Admin Dose 5,000 UNIT; Start 08/08/18 at 21:00 Lorazepam (Ativan) 0.5 mg Q6H PRN IV ANXIETY; Start 08/08/18 at 20:00 Sodium Chloride 1,000 ml @ 125 mls/hr Q8H IV Last administered on 08/10/18at 05:34; Admin Dose 125 MLS/HR; Start 08/08/18 at 19:34 Albuterol/ Ipratropium (Duoneb) 3 ml Q4H RESP THERAPY PRN HHN SHORTNESS OF BREATH; Start 08/08/18 at 20:00 Hydralazine HCl (Apresoline) 10 mg Q6H PRN IV ELEVATED BLOOD PRESSURE; Start 08/08/18 at 20:00 Nitroglycerin (Nitroglycerin (Sl Tab) 0.4 Mg) 1 tab Q5M PRN SL ANGINA; Start 08/08/18 at 20:00 Fluoxetine HCl (Prozac) 20 mg DAILY PO Last administered on 08/10/18at 08:27; Admin Dose 20 MG; Start 08/09/18 at 09:00 Montelukast Sodium (Singulair) 10 mg QHS PO Last administered on 08/09/18at 20:28; Admin Dose 10 MG; Start 08/08/18 at 21:00 Quetiapine Fumarate (Seroquel) 75 mg BID PO Last administered on 08/09/18at 20:28; Admin Dose 75 MG; Start 08/09/18 at 21:00 Miscellaneous Information 1 ea NOTE XX ; Start 08/09/18 at 11:30 Glucose (Glutose) 15 gm Q15M PRN PO DECREASED GLUCOSE; Start 08/09/18 at 11:30 Glucose (Glutose) 22.5 gm Q15M PRN PO DECREASED GLUCOSE; Start 08/09/18 at 11:30 Dextrose (D50w Syringe) 25 ml Q15M PRN IV DECREASED GLUCOSE; Start 08/09/18 at 11:30 Dextrose (D50w Syringe) 50 ml Q15M PRN IV DECREASED GLUCOSE; Start 08/09/18 at 11:30 Glucagon (Glucagen) 1 mg Q15M PRN IM DECREASED GLUCOSE; Start 08/09/18 at 11:30 Glucose (Glutose) 15 gm Q15M PRN BUCCAL DECREASED GLUCOSE; Start 08/09/18 at 11:30 Metformin HCl (Glucophage) 500 mg BID WITH MEALS PO Last administered on 08/10/18at 08:22; Admin Dose 500 MG; Start 08/09/18 at 18:00 Ceftriaxone Sodium 50 ml @ 100 mls/hr Q24H IVPB Last administered on 08/09/18at 14:52; Admin Dose 100 MLS/HR; Start 08/09/18 at 14:30 Azithromycin 250 ml @ 250 mls/hr Q24H IVPB Last administered on 08/09/18at 16:04; Admin Dose 250 MLS/HR; Start 08/09/18 at 16:00 Insulin Aspart (Novolog Insulin Pen) 18 unit WITH MEALS SC Last administered on 08/10/18at 12:24; Admin Dose 18 UNIT; Start 08/10/18 at 12:00 Insulin Glargine (Lantus) 36 units DAILY@2000 SC ; Start 08/10/18 at 20:00 Insulin Aspart (Novolog Insulin Pen) NOVOLOG *MODERATE* ALGORITHM WITH MEALS BEDTIME SC Last administered on 08/10/18at 12:25; Admin Dose 8 UNIT; Start 08/10/18 at 12:00 ARNAUD HAMILTON MD August 10, 2018 13:49
[2018-08-10] MEDS: CEFTRIAXONE 1 GM/50 ML (PMX) 50 ML IVPB SCH (14:52)
[2018-08-10] MEDS: AZITHROMYCIN 500MG/NS (PMX) 250 ML IVPB SCH (16:21)
[2018-08-10] MEDS: DIVALPROEX (EC) 250 MG TAB PO SCH (21:23)
[2018-08-10] MEDS: MONTELUKAST 10 MG TAB PO SCH (21:23)
[2018-08-10] MEDS: INSULIN GLARGINE [LANTus] (100 UNITS/ML) SYG SC SCH (21:31)
[2018-08-11] VITALS (10 sets, daily range): BP systolic 120–173; BP diastolic 82–96; PULSE 68–99; RESP 18–20
[2018-08-11] MEDS: SOD CHLORIDE 0.9% 1,000 ML IV SCH ×3 (03:34→17:22)
[2018-08-11] MEDS: QUETIAPINE 25 MG TAB PO SCH ×2 (08:06→21:01)
[2018-08-11] MEDS: FLUOXETINE 20 MG CAP PO SCH (08:06)
[2018-08-11] MEDS: metFORMIN 500 MG TAB PO SCH ×2 (08:06→17:19)
[2018-08-11] MEDS: DIVALPROEX (EC) 250 MG TAB PO SCH ×2 (08:06→21:03)
[2018-08-11] MEDS: HEPARIN 5,000 UNIT/1 ML VIAL SC SCH ×2 (08:19→21:01)
[2018-08-11] MEDS: INSULIN ASPART [NOVOLOG] 3 ML PEN SC SCH ×7 (08:19→20:41)
[2018-08-11] MEDS ORDERED: FLUOXETINE 20 MG CAP PO SCH (09:00)
--- NOTE | 2018-08-11 10:14 | PN ---
Date/Time of Note Date/Time of Note DATE: 08/11/18 TIME: 10:12 Assessment/Plan VTE Prophylaxis Risk score (from Ns)>0 risk: 1 SCD applied (from Ns): No SCD contraindicated: patient refusal Pharmacological prophylaxis: NA/contraindicated Pharm contraindication: low risk/ambulating Lines/Catheters IV Catheter Type (from [facility]): Peripheral IV Urinary Cath still in place: No Assessment/Plan Hospital Course SUBJECTIVE: Complains of a cough. OBJECTIVE: Physical Exam General: Adequately build 48 year-old female lying in bed in no apparent distress. HEENT: Normocephalic, atraumatic. Eyes: Anicteric sclerae, conjunctivae clear. ENT: Nasal septum midline, oral mucosa moist. Neck supple, no JVD noticed. Respiratory: Bilaterally diminished breath sounds. No use of accessory muscles of respiration. No adventitious breath sounds. Cardiovascular: S1, S2 heard. Regular rate and rhythm. Abdomen: Soft, nontender, and nondistended. Bowel sounds positive in all 4 quadrants. Genitourinary: Deferred. Extremities: No cyanosis, no clubbing, no edema. Peripheral pulses palpable. Neurologic: Cranial nerves II through XII grossly intact. The patient is awake, alert, and oriented. Skin: Normal skin turgor. No skin rashes. Labs & Vitals per chart ASSESSMENT & PLAN 48-year-old female with comorbidities including diabetes mellitus type 2 who is noncompliant with her medication, schizophrenia, and substance abuse who presented to the emergency room with complaints of cough and congestion, who was found to have evidence of underlying hyperglycemia (934), with no evidence of DKA, and sepsis with leukocytosis, lactic acidosis, febrile illness, and tachycardia. 1. Hyperglycemia. -No evidence of DKA. -Status post insulin drip. -Currently on sliding scale insulin along with pre-meal insulin and basal insulin. -Endocrinology evaluation. 2. Sepsis with leukocytosis, febrile illness, lactic acidosis, tachycardia present on admission. -Most likely secondary to community-acquired pneumonia. -Continue antimicrobials. 3. Community-acquired pneumonia. -Chest x-ray showing worsening infiltrates. -Continue antimicrobials. 4. Schizophrenia. -Continue antipsychotics. -Psych recommendations appreciated. 5. Substance abuse. -Cessation advised. 6. Homeless status -Social work consult. 7. Fluids, electrolytes, and nutrition. -Carbohydrate controlled diet. 8. DVT prophylaxis. -Bilateral SCDs. 9. Plan. -Continue antimicrobials -Insulin management as per endocrinology. -Await clinical improvement. -Transfer the patient to medical surgical floor. The patient was seen in collaboration with Dr. Sarah. Result Diagram: 08/11/18 0541 08/11/18 0541 Results 24hrs Laboratory Tests Test 08/10/18 12:23 08/10/18 14:56 08/10/18 17:29 08/10/18 20:25 Bedside Glucose 289 H 161 109 Urine Opiates Screen NEG Urine Barbiturates NEG Urine Amphetamines Positive Screen Urine Negative Benzodiazepines Screen Urine Cocaine Screen NEG Urine Cannabinoids Negative Test 08/11/18 05:41 08/11/18 07:30 White Blood Count 11.2 H Red Blood Count 4.08 L Hemoglobin 11.6 L Hematocrit 36.8 L Mean Corpuscular 90.2 Volume Mean Corpuscular 28.4 L Hemoglobin Mean Corpuscular 31.5 L Hemoglobin Concent Red Cell 12.1 Distribution Width Platelet Count 722 H Mean Platelet Volume 8.4 Immature 2.900 H Granulocytes % Neutrophils % 68.0 Lymphocytes % 22.5 Monocytes % 5.1 Eosinophils % 0.9 Basophils % 0.6 Nucleated Red Blood 0.0 Cells % Immature 0.320 H Granulocytes # Neutrophils # 7.6 H Lymphocytes # 2.5 Monocytes # 0.6 Eosinophils # 0.1 Basophils # 0.1 Nucleated Red Blood 0.0 Cells # Sodium Level 138 Potassium Level 4.7 Chloride Level 105 Carbon Dioxide Level 28 Anion Gap 5 Blood Urea Nitrogen 12 Creatinine 0.53 Est Glomerular > 60 Filtrat Rate mL/min Glucose Level 167 # Calcium Level 8.9 Phosphorus Level 4.6 Magnesium Level 1.8 Bedside Glucose 286 H Exam/Review of Systems Exam Vitals Vital Signs Date Temp Pulse Resp B/P (MAP) Pulse Ox O2 O2 Flow FiO2 Time Delivery Rate 08/11/18 98.3 94 20 142/92 93 08:28 (109) 08/11/18 Room Air 04:21 08/10/18 21 02:31 Intake and Output 08/10/18 08/10/18 08/11/18 1515:00 23:00 07:00 IntakeIntake Total 2300 ml 800 ml OutputOutput Total 2 ml 3 ml BalanceBalance 2298 ml 797 ml Results Results 24hrs Laboratory Tests Test 08/10/18 12:23 08/10/18 14:56 08/10/18 17:29 08/10/18 20:25 Bedside Glucose 289 H 161 109 Urine Opiates Screen NEG Urine Barbiturates NEG Urine Amphetamines Positive Screen Urine Negative Benzodiazepines Screen Urine Cocaine Screen NEG Urine Cannabinoids Negative Test 08/11/18 05:41 08/11/18 07:30 White Blood Count 11.2 H Red Blood Count 4.08 L Hemoglobin 11.6 L Hematocrit 36.8 L Mean Corpuscular 90.2 Volume Mean Corpuscular 28.4 L Hemoglobin Mean Corpuscular 31.5 L Hemoglobin Concent Red Cell 12.1 Distribution Width Platelet Count 722 H Mean Platelet Volume 8.4 Immature 2.900 H Granulocytes % Neutrophils % 68.0 Lymphocytes % 22.5 Monocytes % 5.1 Eosinophils % 0.9 Basophils % 0.6 Nucleated Red Blood 0.0 Cells % Immature 0.320 H Granulocytes # Neutrophils # 7.6 H Lymphocytes # 2.5 Monocytes # 0.6 Eosinophils # 0.1 Basophils # 0.1 Nucleated Red Blood 0.0 Cells # Sodium Level 138 Potassium Level 4.7 Chloride Level 105 Carbon Dioxide Level 28 Anion Gap 5 Blood Urea Nitrogen 12 Creatinine 0.53 Est Glomerular > 60 Filtrat Rate mL/min Glucose Level 167 # Calcium Level 8.9 Phosphorus Level 4.6 Magnesium Level 1.8 Bedside Glucose 286 H Medications Medication Current Medications IV Flush (NS 3 ml) 3 ml PER PROTOCOL IV ; Start 08/08/18 at 20:00 Ondansetron HCl (Zofran Inj) 4 mg Q6H PRN IV NAUSEA/VOMITING; Start 08/08/18 at 20:00 Acetaminophen (Tylenol Tab) 650 mg Q6H PRN PO .PAIN 1-3 OR TEMP; Start 08/08/18 at 20:00 Acetaminophen/ Hydrocodone Bitart ([place] (5/325)) 1 tab Q6H PRN PO .MOD PAIN 4- 6; Start 08/08/18 at 20:00 Morphine Sulfate (morphine) 2 mg Q4H PRN IV .SEVERE PAIN 7-10; Start 08/08/18 at 20:00 Docusate Sodium (Colace) 100 mg Q12H PRN PO .CONSTIPATION; Start 08/08/18 at 20:00 Magnesium Hydroxide (Milk Of Mag) 30 ml DAILY PRN PO .CONSTIPATION; Start 08/08/18 at 20:00 Heparin Sodium (Porcine) (Heparin (5000 Units/1ml)) 5,000 unit Q12 SC Last administered on 08/11/18at 08:19; Admin Dose 5,000 UNIT; Start 08/08/18 at 21:00 Lorazepam (Ativan) 0.5 mg Q6H PRN IV ANXIETY; Start 08/08/18 at 20:00 Sodium Chloride 1,000 ml @ 125 mls/hr Q8H IV Last administered on 08/11/18at 07:14; Admin Dose 125 MLS/HR; Start 08/08/18 at 19:34 Albuterol/ Ipratropium (Duoneb) 3 ml Q4H RESP THERAPY PRN HHN SHORTNESS OF BREATH; Start 08/08/18 at 20:00 Hydralazine HCl (Apresoline) 10 mg Q6H PRN IV ELEVATED BLOOD PRESSURE; Start 08/08/18 at 20:00 Nitroglycerin (Nitroglycerin (Sl Tab) 0.4 Mg) 1 tab Q5M PRN SL ANGINA; Start 08/08/18 at 20:00 Fluoxetine HCl (Prozac) 20 mg DAILY PO Last administered on 08/11/18at 08:06; Admin Dose 20 MG; Start 08/09/18 at 09:00 Montelukast Sodium (Singulair) 10 mg QHS PO Last administered on 08/10/18at 21:23; Admin Dose 10 MG; Start 08/08/18 at 21:00 Quetiapine Fumarate (Seroquel) 75 mg BID PO Last administered on 08/11/18at 08:06; Admin Dose 75 MG; Start 08/09/18 at 21:00 Miscellaneous Information 1 ea NOTE XX ; Start 08/09/18 at 11:30 Glucose (Glutose) 15 gm Q15M PRN PO DECREASED GLUCOSE; Start 08/09/18 at 11:30 Glucose (Glutose) 22.5 gm Q15M PRN PO DECREASED GLUCOSE; Start 08/09/18 at 11: 30 Dextrose (D50w Syringe) 25 ml Q15M PRN IV DECREASED GLUCOSE; Start 08/09/18 at 11:30 Dextrose (D50w Syringe) 50 ml Q15M PRN IV DECREASED GLUCOSE; Start 08/09/18 at 11:30 Glucagon (Glucagen) 1 mg Q15M PRN IM DECREASED GLUCOSE; Start 08/09/18 at 11:30 Glucose (Glutose) 15 gm Q15M PRN BUCCAL DECREASED GLUCOSE; Start 08/09/18 at 11:30 Metformin HCl (Glucophage) 500 mg BID WITH MEALS PO Last administered on 08/11/18 08:06; Admin Dose 500 MG; Start 08/09/18 at 18:00 Ceftriaxone Sodium 50 ml @ 100 mls/hr Q24H IVPB Last administered on 08/10/18 14:52; Admin Dose 100 MLS/HR; Start 08/09/18 at 14:30 Azithromycin 250 ml @ 250 mls/hr Q24H IVPB Last administered on 08/10/18 16:21; Admin Dose 250 MLS/HR; Start 08/09/18 at 16:00 Insulin Aspart (Novolog Insulin Pen) 18 unit WITH MEALS SC Last administered on 08/11/18 08:20; Admin Dose 18 UNIT; Start 08/10/18 at 12:00 Insulin Glargine (Lantus) 36 units DAILY@2000 SC Last administered on 08/10/18 21:31; Admin Dose 36 UNITS; Start 08/10/18 at 20:00 Insulin Aspart (Novolog Insulin Pen) NOVOLOG *MODERATE* ALGORITHM WITH MEALS BEDTIME SC Last administered on 08/11/18 08:19; Admin Dose 8 UNIT; Start 08/10/18 at 12:00 Divalproex Sodium (Depakote) 250 mg BID PO Last administered on 08/11/18 08:06; Admin Dose 250 MG; Start 08/10/18 at 21:00 MAIKOL WARE NP August 11, 2018 10:14
--- NOTE | 2018-08-11 14:04 | CONS ---
Assessment/Plan Assessment/Plan Problems: (1) Type 2 diabetes mellitus with hyperglycemia Status: Chronic Comment: Marked improvement in glycemic control. However, hyperglycemic this am, likely due to hs snack. Will advise nurses that hs snack needs to be low- carb only. Cont. current insulin doses. 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: with exterminator helper termite use Qualified Codes: E11.65 - Type 2 diabetes mellitus with hyperglycemia; Z79.4 - assisted (current) use of insulin Consultation Date/Type/Reason Admit Date/Time August 08, 2018 at 18:29 Initial Consult Date 08/09/18 Type of Consult Endocrinology Reason for Consultation [facility] Requesting Provider: HUMA ROGERS MD Date/Time of Note DATE: 08/11/18 TIME: 14:00 24 HR Interval Summary Constitutional: no complaints, improved Detailed Summary Respiratory: no complaints, pain Cardiovascular: no complaints Gastrointestinal: no complaints Genitourinary: no complaints Musculoskeletal: no complaints Neurologic: no complaints Exam/Review of Systems Exam Vitals VS - Last 72 Hours, by Label Date Temp Pulse Resp B/P (MAP) Pulse Ox O2 O2 Flow FiO2 Time Delivery Rate 08/11/18 99 12:54 08/11/18 98.4 99 20 124/82 92 11:26 (96) 08/11/18 98.3 94 20 142/92 93 08:28 (109) 08/11/18 90 08:05 08/11/18 98.2 91 18 136/96 95 Room Air 04:21 (109) 08/11/18 92 04:00 08/11/18 98.2 68 20 173/85 97 Room Air 00:28 (114) 08/11/18 98.3 90 120/84 97 Room Air 00:20 (96) 08/11/18 92 00:00 08/10/18 101 20:00 08/10/18 97.5 96 18 132/93 96 Room Air 20:00 (106) 08/10/18 103 16:27 08/10/18 98.2 103 19 151/106 98 15:25 (121) 08/10/18 97 12:24 08/10/18 98.1 104 19 131/89 98 12:00 (103) 08/10/18 89 08:20 08/10/18 98.1 88 18 145/103 98 08:08 (117) 08/10/18 89 04:00 08/10/18 97.8 89 18 130/89 95 03:55 (103) 08/10/18 95 21 02:31 08/10/18 96 00:00 08/09/18 98.5 94 18 135/96 95 23:54 (109) 08/09/18 95 21 20:20 08/09/18 107 20:00 08/09/18 98.7 107 19 135/92 94 19:47 (106) 08/09/18 101 16:30 08/09/18 98.4 94 20 151/100 99 Room Air 15:25 (117) 08/09/18 98 12:07 08/09/18 98.0 97 18 133/97 97 Room Air 11:33 (109) 08/09/18 98 08:44 08/09/18 92 20 119/96 98 Room Air 08:14 (104) 08/09/18 97.9 92 23 124/96 97 Room Air 07:30 (105) 08/09/18 98.2 93 16 138/99 97 Room Air 06:00 (112) 08/09/18 100 133/95 100 Room Air 05:00 (108) 08/09/18 94 16 120/97 100 Room Air 03:01 (105) 08/09/18 97 24 123/94 98 Room Air 02:00 (104) 08/09/18 99 24 114/88 96 Room Air 01:02 (97) 08/09/18 104 25 106/71 95 Room Air 00:00 (83) 08/08/18 103 23 125/92 96 Room Air 23:01 (103) 08/08/18 106 22 142/100 96 Room Air 22:00 (114) 08/08/18 111 26 126/87 95 Room Air 21:00 (100) 08/08/18 98.9 115 20 123/94 95 Room Air 20:00 (104) 08/08/18 99.2 110 18 127/89 94 Room Air 18:56 (102) 08/08/18 Nasal 17:30 Cannula 08/08/18 102.0 125 20 127/86 94 Room Air 17:30 (100) 08/08/18 101.3 125 20 138/77 95 16:47 (97) Vital Signs Date Temp Pulse Resp B/P (MAP) Pulse Ox O2 O2 Flow FiO2 Time Delivery Rate 08/11/18 99 12:54 08/11/18 98.4 20 124/82 92 11:26 (96) 08/11/18 Room Air 04:21 08/10/18 21 02:31 Intake and Output 08/10/18 08/10/18 08/11/18 1515:00 23:00 07:00 IntakeIntake Total 2300 ml 800 ml OutputOutput Total 2 ml 3 ml BalanceBalance 2298 ml 797 ml Constitutional: alert, oriented, well developed Respiratory: clear to auscultation, normal air movement Cardiovascular: regular rate and rhythm, nl pulses; No edema, No murmurs/extra sounds, No rub Gastrointestinal: soft, nl liver, spleen, non-tender, bowel sounds; No mass, No rebound or guarding Musculoskeletal: nl extremities to inspection Extremities: normal pulses; No cyanosis, No clubbing, No edema 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, nl mental status, nl speech, nl strength Additional Comments Bedside Glucose - 72 Hours Test 08/08/18 19:28 08/08/18 21:10 08/08/18 22:18 08/08/18 23:16 Bedside > 595 484 383 313 Glucose mg/dL (70-220) mg/dL (70-220) mg/dL (70-220) mg/dL (70-220) *H *H H H Test 08/09/18 00:24 08/09/18 01:20 08/09/18 02:31 08/09/18 03:48 Bedside 308 204 152 148 Glucose mg/dL (70-220) mg/dL (70-220) mg/dL (70-220) mg/dL (70-220) H Test 08/09/18 05:56 08/09/18 07:32 08/09/18 09:44 08/09/18 11:35 Bedside 191 158 272 311 Glucose mg/dL (70-220) mg/dL (70-220) mg/dL (70-220) mg/dL (70-220) H H Test 08/09/18 17:17 08/09/18 20:12 08/10/18 01:41 08/10/18 08:21 Bedside 324 228 205 324 Glucose mg/dL (70-220) mg/dL (70-220) mg/dL (70-220) mg/dL (70-220) H H H Test 08/10/18 12:23 08/10/18 17:29 08/10/18 20:25 08/11/18 07:30 Bedside 289 161 109 286 Glucose mg/dL (70-220) mg/dL (70-220) mg/dL (70-220) mg/dL (70-220) H H Test 08/11/18 12:43 Bedside 113 Glucose mg/dL (70-220) Results Result Diagram: 08/11/18 0541 08/11/18 0541 Results 24hrs Laboratory Tests Test 08/10/18 14:56 08/10/18 17:29 08/10/18 20:25 08/11/18 05:41 Urine Opiates NEG Screen Urine NEG Barbiturates Urine Positive Amphetamines Screen Urine Negative Benzodiazepines Screen Urine Cocaine NEG Screen Urine Negative Cannabinoids Bedside Glucose 161 109 White Blood 11.2 H Count Red Blood Count 4.08 L Hemoglobin 11.6 L Hematocrit 36.8 L Mean Corpuscular 90.2 Volume Mean Corpuscular 28.4 L Hemoglobin Mean Corpuscular 31.5 L Hemoglobin Gely nt Red Cell 12.1 Distribution Width Platelet Count 722 H Mean Platelet 8.4 Volume Immature 2.900 H Granulocytes % Neutrophils % 68.0 Lymphocytes % 22.5 Monocytes % 5.1 Eosinophils % 0.9 Basophils % 0.6 Nucleated Red 0.0 Blood Cells % Immature 0.320 H Granulocytes # Neutrophils # 7.6 H Lymphocytes # 2.5 Monocytes # 0.6 Eosinophils # 0.1 Basophils # 0.1 Nucleated Red 0.0 Blood Cells # Sodium Level 138 Potassium Level 4.7 Chloride Level 105 Carbon Dioxide 28 Level Anion Gap 5 Blood Urea 12 Nitrogen Creatinine 0.53 Est Glomerular > 60 Filtrat Rate mL/min Glucose Level 167 # Calcium Level 8.9 Phosphorus Level 4.6 Magnesium Level 1.8 Test 08/11/18 07:30 08/11/18 12:05 08/11/18 12:06 08/11/18 12:43 Bedside Glucose 286 H 113 Lab Scanned REFERENCE LAB REFERENCE LAB Report Medications Medication Current Medications IV Flush (NS 3 ml) 3 ml PER PROTOCOL IV ; Start 08/08/18 at 20:00 Ondansetron HCl (Zofran Inj) 4 mg Q6H PRN IV NAUSEA/VOMITING; Start 08/08/18 at 20:00 Acetaminophen (Tylenol Tab) 650 mg Q6H PRN PO .PAIN 1-3 OR TEMP; Start 08/08/18 at 20:00 Acetaminophen/ Hydrocodone Bitart ([place] (5/325)) 1 tab Q6H PRN PO .MOD PAIN 4- 6; Start 08/08/18 at 20:00 Morphine Sulfate (morphine) 2 mg Q4H PRN IV .SEVERE PAIN 7-10; Start 08/08/18 at 20:00 Docusate Sodium (Colace) 100 mg Q12H PRN PO .CONSTIPATION; Start 08/08/18 at 20:00 Magnesium Hydroxide (Milk Of Mag) 30 ml DAILY PRN PO .CONSTIPATION; Start 08/08/18 at 20:00 Heparin Sodium (Porcine) (Heparin (5000 Units/1ml)) 5,000 unit Q12 SC Last administered on 08/11/18at 08:19; Admin Dose 5,000 UNIT; Start 08/08/18 at 21:00 Lorazepam (Ativan) 0.5 mg Q6H PRN IV ANXIETY; Start 08/08/18 at 20:00 Sodium Chloride 1,000 ml @ 125 mls/hr Q8H IV Last administered on 08/11/18at 07:14; Admin Dose 125 MLS/HR; Start 08/08/18 at 19:34 Albuterol/ Ipratropium (Duoneb) 3 ml Q4H RESP THERAPY PRN HHN SHORTNESS OF BREATH; Start 08/08/18 at 20:00 Hydralazine HCl (Apresoline) 10 mg Q6H PRN IV ELEVATED BLOOD PRESSURE; Start 08/08/18 at 20:00 Nitroglycerin (Nitroglycerin (Sl Tab) 0.4 Mg) 1 tab Q5M PRN SL ANGINA; Start 08/08/18 at 20:00 Fluoxetine HCl (Prozac) 20 mg DAILY PO Last administered on 08/11/18at 08:06; Admin Dose 20 MG; Start 08/09/18 at 09:00 Montelukast Sodium (Singulair) 10 mg QHS PO Last administered on 08/10/18at 21:23; Admin Dose 10 MG; Start 08/08/18 at 21:00 Quetiapine Fumarate (Seroquel) 75 mg BID PO Last administered on 08/11/18 08:06; Admin Dose 75 MG; Start 08/09/18 at 21:00 Miscellaneous Information 1 ea NOTE XX ; Start 08/09/18 at 11:30 Glucose (Glutose) 15 gm Q15M PRN PO DECREASED GLUCOSE; Start 08/09/18 at 11:30 Glucose (Glutose) 22.5 gm Q15M PRN PO DECREASED GLUCOSE; Start 08/09/18 at 11 :30 Dextrose (D50w Syringe) 25 ml Q15M PRN IV DECREASED GLUCOSE; Start 08/09/18 at 11:30 Dextrose (D50w Syringe) 50 ml Q15M PRN IV DECREASED GLUCOSE; Start 08/09/18 at 11:30 Glucagon (Glucagen) 1 mg Q15M PRN IM DECREASED GLUCOSE; Start 08/09/18 at 11:30 Glucose (Glutose) 15 gm Q15M PRN BUCCAL DECREASED GLUCOSE; Start 08/09/18 at 11:30 Metformin HCl (Glucophage) 500 mg BID WITH MEALS PO Last administered on 08/11/18 08:06; Admin Dose 500 MG; Start 08/09/18 at 18:00 Ceftriaxone Sodium 50 ml @ 100 mls/hr Q24H IVPB Last administered on 08/10/18 14:52; Admin Dose 100 MLS/HR; Start 08/09/18 at 14:30 Azithromycin 250 ml @ 250 mls/hr Q24H IVPB Last administered on 08/10/18 16:21; Admin Dose 250 MLS/HR; Start 08/09/18 at 16:00 Insulin Aspart (Novolog Insulin Pen) 18 unit WITH MEALS SC Last administered on 08/11/18at 12:52; Admin Dose 18 UNIT; Start 08/10/18 at 12:00 Insulin Glargine (Lantus) 36 units DAILY@2000 SC Last administered on 08/10/18 21:31; Admin Dose 36 UNITS; Start 08/10/18 at 20:00 Insulin Aspart (Novolog Insulin Pen) NOVOLOG *MODERATE* ALGORITHM WITH MEALS BEDTIME SC Last administered on 08/11/18 08:19; Admin Dose 8 UNIT; Start 08/10/18 at 12:00 Divalproex Sodium (Depakote) 250 mg BID PO Last administered on 5/15/19at 08:06; Admin Dose 250 MG; Start 08/10/18 at 21:00 ARNAUD HAMILTON MD August 11, 2018 14:04
[2018-08-11] MEDS: CEFTRIAXONE 1 GM/50 ML (PMX) 50 ML IVPB SCH (17:14)
[2018-08-11] MEDS: AZITHROMYCIN 500MG/NS (PMX) 250 ML IVPB SCH (21:00)
[2018-08-11] MEDS: MONTELUKAST 10 MG TAB PO SCH (21:01)
[2018-08-11] MEDS: INSULIN GLARGINE [LANTus] (100 UNITS/ML) SYG SC SCH (21:02)
[2018-08-12 02:58] VITALS: BP 127/92; PULSE 99; RESP 20
[2018-08-12] MEDS: INSULIN ASPART [NOVOLOG] 3 ML PEN SC SCH ×7 (08:00→20:34)
[2018-08-12] MEDS: metFORMIN 500 MG TAB PO SCH ×2 (08:00→17:50)
[2018-08-12] MEDS: FLUOXETINE 20 MG CAP PO SCH (08:47)
[2018-08-12] MEDS: HEPARIN 5,000 UNIT/1 ML VIAL SC SCH ×2 (08:48→20:38)
[2018-08-12] MEDS: QUETIAPINE 25 MG TAB PO SCH ×2 (08:48→20:36)
[2018-08-12] MEDS: DIVALPROEX (EC) 250 MG TAB PO SCH ×2 (08:48→20:36)
[2018-08-12 09:16] VITALS: BP 132/87; PULSE 89; RESP 17
[2018-08-12] MEDS ORDERED: NOVO3I SC (12:31)
[2018-08-12] MEDS ORDERED: QUET25TA33 PO (12:31)
[2018-08-12] MEDS ORDERED: Insulin Glargine SC (12:31)
[2018-08-12] MEDS ORDERED: DIV250 PO (12:31)
[2018-08-12] MEDS ORDERED: METF-849 PO (12:31)
[2018-08-12] MEDS ORDERED: LEVO500T10 PO (12:32)
--- NOTE | 2018-08-12 12:35 | PDOCDIS ---
Discharge Instructions CONDITION [id number] Patient Condition: [id number] Stable HOME CARE INSTRUCTIONS: [id number] Special Diet: Wydyd7m Low carbohydrate FOLLOW UP/APPOINTMENTS Follow-up Plan Danny Jones MD Specialty: Internal Medicine Office Address: [address] [place], [place] [id number] Office OTHER ORDERS: Other Orders: 1. Take medications as per prescription. 2. Take a low carbohydrate diet. 3. Abstain from using recreational drugs. 4. Resume activities as tolerated. 5. Please follow-up with your primary care physician in 2 weeks. If you do not have a primary care physician, please call Dr. Danny Jones's office. 6. Please go to the nearest emergency room if you have persistent fevers, significant cough, shortness of breath, or any other unusual signs/symptoms. MAIKOL WARE NP August 12, 2018 12:35
[2018-08-12 14:57] VITALS: BP 116/77; PULSE 93; RESP 18
--- NOTE | 2018-08-12 14:57 | PN ---
Date/Time of Note Date/Time of Note DATE: 08/12/18 TIME: 14:55 Assessment/Plan VTE Prophylaxis Risk score (from Ns)>0 risk: 4 SCD applied (from Ns): No SCD contraindicated: other Pharmacological prophylaxis: NA/contraindicated Pharm contraindication: low risk/ambulating Lines/Catheters IV [facility]ter Type (from [facility] Peripheral IV Urinary Cath still in place: No Assessment/Plan Hospital Course SUBJECTIVE: Remains afebrile. OBJECTIVE: Physical Exam General: Adequately build 48 year-old female lying in bed in no apparent distress. HEENT: Normocephalic, atraumatic. Eyes: Anicteric sclerae, conjunctivae clear. ENT: Nasal septum midline, oral mucosa moist. Neck supple, no JVD noticed. Respiratory: Bilaterally diminished breath sounds. No use of accessory muscles of respiration. No adventitious breath sounds. Cardiovascular: S1, S2 heard. Regular rate and rhythm. Abdomen: Soft, nontender, and nondistended. Bowel sounds positive in all 4 quadrants. Genitourinary: Deferred. Extremities: No cyanosis, no clubbing, no edema. Peripheral pulses palpable. Neurologic: Cranial nerves II through XII grossly intact. The patient is awake, alert, and oriented. Skin: Normal skin turgor. No skin rashes. Labs & Vitals per chart ASSESSMENT & PLAN 48-year-old female with comorbidities including diabetes mellitus type 2 who is noncompliant with her medication, schizophrenia, and substance abuse who presented to the emergency room with complaints of cough and congestion, who was found to have evidence of underlying hyperglycemia (934), with no evidence of DKA, and sepsis with leukocytosis, lactic acidosis, febrile illness, and tachycardia. 1. Hyperglycemia. -No evidence of DKA. -Status post insulin drip. -Currently on sliding scale insulin along with pre-meal insulin and basal insulin. -Endocrinology evaluation. 2. S/P sepsis with leukocytosis, febrile illness, lactic acidosis, and tach ycardia present on admission. -Most likely secondary to community-acquired pneumonia. -Continue antimicrobials. 3. Community-acquired pneumonia. -Repeat chest x-ray showing worsening infiltrates. -Continue antimicrobials. 4. Schizophrenia. -Continue antipsychotics. -Psych recommendations appreciated. 5. Substance abuse. -Cessation advised. 6. Homeless status -Social work consult. 7. Fluids, electrolytes, and nutrition. -Carbohydrate controlled diet. 8. DVT prophylaxis. -Bilateral SCDs. 9. Plan. -Continue antimicrobials -Insulin management as per endocrinology. -Await clinical improvement before discharging the patient. The patient was seen in collaboration with Dr. Sarah. Result Diagram: 08/12/18 0701 08/12/18 0700 Results 24hrs Laboratory Tests Test 08/11/18 17:15 08/11/18 20:38 08/12/18 07:00 08/12/18 07:01 Bedside Glucose 114 81 Sodium Level 139 Potassium Level 4.2 Chloride Level 104 Carbon Dioxide Level 29 Anion Gap 6 Blood Urea Nitrogen 11 Creatinine 0.48 Est Glomerular > 60 Filtrat Rate mL/min Glucose Level 119 # Calcium Level 9.4 Phosphorus Level 5.1 H Magnesium Level 1.8 White Blood Count 9.4 Red Blood Count 4.13 L Hemoglobin 11.9 L Hematocrit 36.7 L Mean Corpuscular 88.9 Volume Mean Corpuscular 28.8 L Hemoglobin Mean Corpuscular 32.4 Hemoglobin Concent Red Cell 12.1 Distribution Width Platelet Count 770 H Mean Platelet Volume 8.3 Immature 2.100 H Granulocytes % Neutrophils % 68.5 Lymphocytes % 23.8 Monocytes % 4.8 Eosinophils % 0.4 Basophils % 0.4 Nucleated Red Blood 0.0 Cells % Immature 0.200 H Granulocytes # Neutrophils # 6.5 Lymphocytes # 2.2 Monocytes # 0.5 Eosinophils # 0.0 Basophils # 0.0 Nucleated Red Blood 0.0 Cells # Test 08/12/18 08:01 08/12/18 12:18 Bedside Glucose 126 78 Exam/Review of Systems Exam Vitals Vital Signs Date Temp Pulse Resp B/P (MAP) Pulse Ox O2 O2 Flow FiO2 Time Delivery Rate 08/12/18 98.3 89 17 132/87 95 09:16 (102) 08/11/18 Room Air 04:21 08/10/18 21 02:31 Intake and Output 08/11/18 08/11/18 08/12/18 1515:00 23:00 07:00 IntakeIntake Total 1000 ml 1300 ml 1250 ml BalanceBalance 1000 ml 1300 ml 1250 ml Results Results 24hrs Laboratory Tests Test 08/11/18 17:15 08/11/18 20:38 08/12/18 07:00 08/12/18 07:01 Bedside Glucose 114 81 Sodium Level 139 Potassium Level 4.2 Chloride Level 104 Carbon Dioxide Level 29 Anion Gap 6 Blood Urea Nitrogen 11 Creatinine 0.48 Est Glomerular > 60 Filtrat Rate mL/min Glucose Level 119 # Calcium Level 9.4 Phosphorus Level 5.1 H Magnesium Level 1.8 White Blood Count 9.4 Red Blood Count 4.13 L Hemoglobin 11.9 L Hematocrit 36.7 L Mean Corpuscular 88.9 Volume Mean Corpuscular 28.8 L Hemoglobin Mean Corpuscular 32.4 Hemoglobin Concent Red Cell 12.1 Distribution Width Platelet Count 770 H Mean Platelet Volume 8.3 Immature 2.100 H Granulocytes % Neutrophils % 68.5 Lymphocytes % 23.8 Monocytes % 4.8 Eosinophils % 0.4 Basophils % 0.4 Nucleated Red Blood 0.0 Cells % Immature 0.200 H Granulocytes # Neutrophils # 6.5 Lymphocytes # 2.2 Monocytes # 0.5 Eosinophils # 0.0 Basophils # 0.0 Nucleated Red Blood 0.0 Cells # Test 08/12/18 08:01 08/12/18 12:18 Bedside Glucose 126 78 Medications Medication Current Medications IV Flush (NS 3 ml) 3 ml PER PROTOCOL IV ; Start 08/08/18 at 20:00 Ondansetron HCl (Zofran Inj) 4 mg Q6H PRN IV NAUSEA/VOMITING; Start 08/08/18 at 20:00 Acetaminophen (Tylenol Tab) 650 mg Q6H PRN PO .PAIN 1-3 OR TEMP; Start 08/08/18 at 20:00 Acetaminophen/ Hydrocodone Bitart ([place] (5/325)) 1 tab Q6H PRN PO .MOD PAIN 4- 6; Start 08/08/18 at 20:00 Morphine Sulfate (morphine) 2 mg Q4H PRN IV .SEVERE PAIN 7-10; Start 08/08/18 at 20:00 Docusate Sodium (Colace) 100 mg Q12H PRN PO .CONSTIPATION; Start 08/08/18 at 20:00 Magnesium Hydroxide (Milk Of Mag) 30 ml DAILY PRN PO .CONSTIPATION; Start 08/08/18 at 20:00 Heparin Sodium (Porcine) (Heparin (5000 Units/1ml)) 5,000 unit Q12 SC Last administered on 08/12/18at 08:48; Admin Dose 5,000 UNIT; Start 08/08/18 at 21:00 Lorazepam (Ativan) 0.5 mg Q6H PRN IV ANXIETY; Start 08/08/18 at 20:00 Albuterol/ Ipratropium (Duoneb) 3 ml Q4H RESP THERAPY PRN HHN SHORTNESS OF BREATH; Start 08/08/18 at 20:00 Hydralazine HCl (Apresoline) 10 mg Q6H PRN IV ELEVATED BLOOD PRESSURE; Start 08/08/18 at 20:00 Nitroglycerin (Nitroglycerin (Sl Tab) 0.4 Mg) 1 tab Q5M PRN SL ANGINA; Start 08/08/18 at 20:00 Fluoxetine HCl (Prozac) 20 mg DAILY PO Last administered on 08/12/18at 08:47; Admin Dose 20 MG; Start 08/09/18 at 09:00 Montelukast Sodium (Singulair) 10 mg QHS PO Last administered on 08/11/18at 21: 01; Admin Dose 10 MG; Start 08/08/18 at 21:00 Quetiapine Fumarate (Seroquel) 75 mg BID PO Last administered on 08/12/18at 08:48; Admin Dose 75 MG; Start 08/09/18 at 21:00 Miscellaneous Information 1 ea NOTE XX ; Start 08/09/18 at 11:30 Glucose (Glutose) 15 gm Q15M PRN PO DECREASED GLUCOSE; Start 08/09/18 at 11:30 Glucose (Glutose) 22.5 gm Q15M PRN PO DECREASED GLUCOSE; Start 08/09/18 at 11:30 Dextrose (D50w Syringe) 25 ml Q15M PRN IV DECREASED GLUCOSE; Start 08/09/18 at 11:30 Dextrose (D50w Syringe) 50 ml Q15M PRN IV DECREASED GLUCOSE; Start 08/09/18 at 11:30 Glucagon (Glucagen) 1 mg Q15M PRN IM DECREASED GLUCOSE; Start 08/09/18 at 11:30 Glucose (Glutose) 15 gm Q15M PRN BUCCAL DECREASED GLUCOSE; Start 08/09/18 at 11:30 Metformin HCl (Glucophage) 500 mg BID WITH MEALS PO Last administered on 08/12/18at 08:00; Admin Dose 500 MG; Start 08/09/18 at 18:00 Ceftriaxone Sodium 50 ml @ 100 mls/hr Q24H IVPB Last administered on 08/11/18at 17:14; Admin Dose 100 MLS/HR; Start 08/09/18 at 14:30 Azithromycin 250 ml @ 250 mls/hr Q24H IVPB Last administered on 08/11/18at 21:00; Admin Dose 250 MLS/HR; Start 08/09/18 at 16:00 Insulin Aspart (Novolog Insulin Pen) NOVOLOG *MODERATE* ALGORITHM WITH MEALS BEDTIME SC Last administered on 08/11/18 08:19; Admin Dose 8 UNIT; Start 08/10/18 at 12:00 Divalproex Sodium (Depakote) 250 mg BID PO Last administered on 08/12/18at 08:48; Admin Dose 250 MG; Start 08/10/18 at 21:00 Insulin Aspart (Novolog Insulin Pen) 16 unit WITH MEALS SC Last administered on 08/12/18at 12:32; Admin Dose 16 UNIT; Start 08/12/18 at 12:30 Insulin Glargine (Lantus) 34 units DAILY@2000 SC ; Start 08/12/18 at 20:00 MAIKOL WARE NP August 12, 2018 14:57
[2018-08-12] MEDS: CEFTRIAXONE 1 GM/50 ML (PMX) 50 ML IVPB SCH (15:00)
[2018-08-12] MEDS: AZITHROMYCIN 500MG/NS (PMX) 250 ML IVPB SCH (16:28)
--- NOTE | 2018-08-12 17:21 | CONS ---
Assessment/Plan Assessment/Plan Problems: (1) Type 2 diabetes mellitus with hyperglycemia Status: Chronic Comment: Excellent response to current insulin doses. BG tending to drop during the day. Will decrease Novolog from 18 to 16 units qac and decrease Lantus from 36 to 34 units sq qhs. Reeval tomorrow but if pt. to leave, important that she continue this regimen on d/c. 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 Qualified Codes: E11.65 - Type 2 diabetes mellitus with hyperglycemia; Z79.4 - half-way (current) use of insulin Consultation Date/Type/Reason Admit Date/Time August 08, 2018 at 18:29 Initial Consult Date 08/09/18 Type of Consult Endocrinology Reason for Consultation [facility] Requesting Provider: HUMA ROGERS MD Date/Time of Note DATE: 08/12/18 TIME: 17:19 24 HR Interval Summary Constitutional: no complaints, improved Detailed Summary Respiratory: pain Cardiovascular: no complaints Gastrointestinal: no complaints Genitourinary: no complaints Musculoskeletal: no complaints Neurologic: no complaints Exam/Review of Systems Exam Vitals VS - Last 72 Hours, by Label Date Temp Pulse Resp B/P (MAP) Pulse Ox O2 O2 Flow FiO2 Time Delivery Rate 08/12/18 98.5 93 18 116/77 96 14:57 (90) 08/12/18 98.3 89 17 132/87 95 09:16 (102) 08/12/18 98.2 99 20 127/92 98 02:58 (104) 08/11/18 98.4 99 18 136/89 96 20:24 (105) 08/11/18 99 12:54 08/11/18 98.4 99 20 124/82 92 11:26 (96) 08/11/18 98.3 94 20 142/92 93 08:28 (109) 08/11/18 90 08:05 08/11/18 98.2 91 18 136/96 95 Room Air 04:21 (109) 08/11/18 92 04:00 08/11/18 98.2 68 20 173/85 97 Room Air 00:28 (114) 08/11/18 98.3 90 120/84 97 Room Air 00:20 (96) 08/11/18 92 00:00 08/10/18 101 20:00 08/10/18 97.5 96 18 132/93 96 Room Air 20:00 (106) 08/10/18 103 16:27 08/10/18 98.2 103 19 151/106 98 15:25 (121) 08/10/18 97 12:24 08/10/18 98.1 104 19 131/89 98 12:00 (103) 08/10/18 89 08:20 08/10/18 98.1 88 18 145/103 98 08:08 (117) 08/10/18 89 04:00 08/10/18 97.8 89 18 130/89 95 03:55 (103) 08/10/18 95 21 02:31 08/10/18 96 00:00 08/09/18 98.5 94 18 135/96 95 23:54 (109) 08/09/18 95 21 20:20 08/09/18 107 20:00 08/09/18 98.7 107 19 135/92 94 19:47 (106) Vital Signs Date Temp Pulse Resp B/P (MAP) Pulse Ox O2 O2 Flow FiO2 Time Delivery Rate 08/12/18 98.5 93 18 116/77 96 14:57 (90) 08/11/18 Room Air 04:21 08/10/18 21 02:31 Intake and Output 08/11/18 08/11/18 08/12/18 1515:00 23:00 07:00 IntakeIntake Total 1000 ml 1300 ml 1250 ml BalanceBalance 1000 ml 1300 ml 1250 ml Constitutional: alert, oriented, well developed Psych: no complaints, nl mood/affect Respiratory: clear to auscultation, normal air movement Cardiovascular: regular rate and rhythm, nl pulses; No edema, No murmurs/extra sounds, No rub Gastrointestinal: soft, nl liver, spleen, non-tender, bowel sounds; No mass, No rebound or guarding Musculoskeletal: nl extremities to inspection Extremities: normal pulses; No cyanosis, No clubbing, No edema 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, nl mental status, nl speech, nl strength Additional Comments Bedside Glucose - 72 Hours Test 08/09/18 20:12 08/10/18 01:41 08/10/18 08:21 08/10/18 12:23 Bedside 228 205 324 289 Glucose mg/dL (70-220) mg/dL (70-220) mg/dL (70-220) mg/dL (70-220) H H H Test 08/10/18 17:29 08/10/18 20:25 08/11/18 07:30 08/11/18 12:43 Bedside 161 109 286 113 Glucose mg/dL (70-220) mg/dL (70-220) mg/dL (70-220) mg/dL (70-220) H Test 08/11/18 17:15 08/11/18 20:38 08/12/18 08:01 08/12/18 12:18 Bedside 114 81 126 78 Glucose mg/dL (70-220) mg/dL (70-220) mg/dL (70-220) mg/dL (70-220) Results Result Diagram: 08/12/18 0701 08/12/18 0700 Results 24hrs Laboratory Tests Test 08/11/18 20:38 08/12/18 07:00 08/12/18 07:01 08/12/18 08:01 Bedside Glucose 81 126 Sodium Level 139 Potassium Level 4.2 Chloride Level 104 Carbon Dioxide Level 29 Anion Gap 6 Blood Urea Nitrogen 11 Creatinine 0.48 Est Glomerular > 60 Filtrat Rate mL/min Glucose Level 119 # Calcium Level 9.4 Phosphorus Level 5.1 H Magnesium Level 1.8 White Blood Count 9.4 Red Blood Count 4.13 L Hemoglobin 11.9 L Hematocrit 36.7 L Mean Corpuscular 88.9 Volume Mean Corpuscular 28.8 L Hemoglobin Mean Corpuscular 32.4 Hemoglobin Concent Red Cell 12.1 Distribution Width Platelet Count 770 H Mean Platelet Volume 8.3 Immature 2.100 H Granulocytes % Neutrophils % 68.5 Lymphocytes % 23.8 Monocytes % 4.8 Eosinophils % 0.4 Basophils % 0.4 Nucleated Red Blood 0.0 Cells % Immature 0.200 H Granulocytes # Neutrophils # 6.5 Lymphocytes # 2.2 Monocytes # 0.5 Eosinophils # 0.0 Basophils # 0.0 Nucleated Red Blood 0.0 Cells # Test 08/12/18 12:18 Bedside Glucose 78 Medications Medication Current Medications IV Flush (NS 3 ml) 3 ml PER PROTOCOL IV ; Start 08/08/18 at 20:00 Ondansetron HCl (Zofran Inj) 4 mg Q6H PRN IV NAUSEA/VOMITING; Start 08/08/18 at 20:00 Acetaminophen (Tylenol Tab) 650 mg Q6H PRN PO .PAIN 1-3 OR TEMP; Start 08/08/18 at 20:00 Acetaminophen/ Hydrocodone Bitart ([place] (5/325)) 1 tab Q6H PRN PO .MOD PAIN 4- 6; Start 08/08/18 at 20:00 Morphine Sulfate (morphine) 2 mg Q4H PRN IV .SEVERE PAIN 7-10; Start 08/08/18 at 20:00 Docusate Sodium (Colace) 100 mg Q12H PRN PO .CONSTIPATION; Start 08/08/18 at 20:00 Magnesium Hydroxide (Milk Of Mag) 30 ml DAILY PRN PO .CONSTIPATION; Start 08/08/18 at 20:00 Heparin Sodium (Porcine) (Heparin (5000 Units/1ml)) 5,000 unit Q12 SC Last administered on 08/12/18at 08:48; Admin Dose 5,000 UNIT; Start 08/08/18 at 21:00 Lorazepam (Ativan) 0.5 mg Q6H PRN IV ANXIETY; Start 08/08/18 at 20:00 Albuterol/ Ipratropium (Duoneb) 3 ml Q4H RESP THERAPY PRN HHN SHORTNESS OF BREATH; Start 08/08/18 at 20:00 Hydralazine HCl (Apresoline) 10 mg Q6H PRN IV ELEVATED BLOOD PRESSURE; Start 08/08/18 at 20:00 Nitroglycerin (Nitroglycerin (Sl Tab) 0.4 Mg) 1 tab Q5M PRN SL ANGINA; Start 08/08/18 at 20:00 Fluoxetine HCl (Prozac) 20 mg DAILY PO Last administered on 08/12/18at 08:47; Admin Dose 20 MG; Start 08/09/18 at 09:00 Montelukast Sodium (Singulair) 10 mg QHS PO Last administered on 08/11/18at 21:01; Admin Dose 10 MG; Start 08/08/18 at 21:00 Quetiapine Fumarate (Seroquel) 75 mg BID PO Last administered on 08/12/18at 08:48; Admin Dose 75 MG; Start 08/09/18 at 21:00 Miscellaneous Information 1 ea NOTE XX ; Start 08/09/18 at 11:30 Glucose (Glutose) 15 gm Q15M PRN PO DECREASED GLUCOSE; Start 08/09/18 at 11:30 Glucose (Glutose) 22.5 gm Q15M PRN PO DECREASED GLUCOSE; Start 08/09/18 at 11:3 0 Dextrose (D50w Syringe) 25 ml Q15M PRN IV DECREASED GLUCOSE; Start 08/09/18 at 11:30 Dextrose (D50w Syringe) 50 ml Q15M PRN IV DECREASED GLUCOSE; Start 08/09/18 at 11:30 Glucagon (Glucagen) 1 mg Q15M PRN IM DECREASED GLUCOSE; Start 08/09/18 at 11:30 Glucose (Glutose) 15 gm Q15M PRN BUCCAL DECREASED GLUCOSE; Start 08/09/18 at 11:30 Metformin HCl (Glucophage) 500 mg BID WITH MEALS PO Last administered on 08/12/18 08:00; Admin Dose 500 MG; Start 08/09/18 at 18:00 Ceftriaxone Sodium 50 ml @ 100 mls/hr Q24H IVPB Last administered on 08/12/18at 15:00; Admin Dose 100 MLS/HR; Start 08/09/18 at 14:30 Azithromycin 250 ml @ 250 mls/hr Q24H IVPB Last administered on 08/12/18at 16:28; Admin Dose 250 MLS/HR; Start 08/09/18 at 16:00 Insulin Aspart (Novolog Insulin Pen) NOVOLOG *MODERATE* ALGORITHM WITH MEALS BEDTIME SC Last administered on 08/11/18at 08:19; Admin Dose 8 UNIT; Start 08/10/18 at 12:00 Divalproex Sodium (Depakote) 250 mg BID PO Last administered on 08/12/18at 08:48; Admin Dose 250 MG; Start 08/10/18 at 21:00 Insulin Aspart (Novolog Insulin Pen) 16 unit WITH MEALS SC Last administered on 08/12/18at 12:32; Admin Dose 16 UNIT; Start 08/12/18 at 12:30 Insulin Glargine (Lantus) 34 units DAILY@2000 SC ; Start 08/12/18 at 20:00 ARNAUD HAMILTON MD August 12, 2018 17:21
[2018-08-12] MEDS ORDERED: INSULIN GLARGINE [LANTus] (100 UNITS/ML) SYG SC SCH (20:00)
[2018-08-12 20:31] VITALS: BP 140/80; PULSE 89; RESP 16
[2018-08-12] MEDS: MONTELUKAST 10 MG TAB PO SCH (20:36)
[2018-08-13 03:01] VITALS: BP 117/77; PULSE 88; RESP 16
[2018-08-13 07:40] VITALS: BP 131/90; PULSE 95; RESP 16
[2018-08-13] MEDS: INSULIN ASPART [NOVOLOG] 3 ML PEN SC SCH ×4 (07:57→12:04)
[2018-08-13] MEDS: metFORMIN 500 MG TAB PO SCH (07:58)
[2018-08-13] MEDS: DIVALPROEX (EC) 250 MG TAB PO SCH (09:22)
[2018-08-13] MEDS: HEPARIN 5,000 UNIT/1 ML VIAL SC SCH (09:22)
[2018-08-13] MEDS: FLUOXETINE 20 MG CAP PO SCH (09:22)
[2018-08-13] MEDS: QUETIAPINE 25 MG TAB PO SCH (09:22)
[2018-08-13] MEDS: CEFTRIAXONE 1 GM/50 ML (PMX) 50 ML IVPB SCH (13:32)
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
[2018-08-14] MEDS ORDERED: AZITHROMYCIN 500 MG TAB PO SCH (06:00)
== END 2018-08-13 14:00 | disposition home or self-care (01) | DRG 871 ==
LOC: E/R 16:39 → 6WM 18:29 → CANRESERV 08-09 06:50 → EDBEDREQSVC 08-09 07:50 → PP2 08-11 15:06
PROVIDERS: ADMIT Hospitalist; ATTEND Hospitalist
DX: A41.9 Sepsis, unspecified organism (principal); J18.9 Pneumonia, unspecified organism; E87.1 Hypo-osmolality and hyponatremia; E87.2 Acidosis; E11.65 Type 2 diabetes mellitus with hyperglycemia; F20.9 Schizophrenia, unspecified; J45.909 Unspecified asthma, uncomplicated; I10 Essential (primary) hypertension; Z72.0 Tobacco use; F15.10 Other stimulant abuse, uncomplicated; Z59.0 Homelessness; Z79.4 Long term (current) use of insulin
CPT/HCPCS: 36415; 71045; 80048; 80053; 80061; 80307; 81003; 82947; 82962; 83036; 83605; 83735; 84100; 84145; 84439; 84443; 84484; 85025; 85610; 85730; 87086; 87400; 93005; 97161; J0456; J0692; J0696; J1644; J1815; J3370; J7030

== ENCOUNTER 2018-11-08 12:28 | Inpatient (IN) | payer MEDICARE, OTHER ==
[~2018-11-08] VITALS: Ht 165.1 cm; Wt 72.5 kg
[~2018-11-08 12:28] MED LIST changes: +DIV250 PO; +DIVA-48 PO; +DULO60CA59 PO; +GABA300C16 PO; -INSU100C SQ; +Insulin Glargine SC; -LANT3I SC; +LEVO500T10 PO; +LISI10TA2 PO; +METF-849 PO; -METF500T24 PO; +NOVO3I SC; +OLAN5TAB36 PO; -QUET150T2 PO; +QUET25TA33 PO
[2018-11-08] MEDS ORDERED: NALOXONE 2 MG SYG ONE (12:31)
--- NOTE | 2018-11-08 12:32 | ERD ---
ER Documentation Chief Complaint Chief Complaint ALOC HPI The patient is a 48-year-old female, found on the street, brought to the ER by EMS. She is unable to provide any history, the history is obtained from EMS and medical record. EMS administered Narcan 2 mg with no response. 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 Past surgical history: Cholecystectomy ROS Unable to obtain due to her condition Medications Home Meds Active Scripts Insulin Aspart* (Novolog Insulin Pen*) 100 Unit/Ml Soln, 18 UNIT SC WITH MEALS, #1 UNIT Prov:MAIKOL WARE NP 08/12/18 [Insulin Glargine] 100 UNITS/ML SOLN No Conflict Check, 36 UNITS SC DAILY@1999, #1 UNIT Prov:MAIKOL WARE NP 08/12/18 Montelukast Sodium* (Montelukast Sodium*) 10 Mg Tablet, 10 MG PO QHS, #30 TAB Prov:JOHNNIE RODRIGUEZ MD 05/20/18 Reported Medications Lisinopril* (Lisinopril*) 10 Mg Tablet, 10 MG PO DAILY, #30 TAB 11/08/18 Olanzapine* (Olanzapine* ODT) 5 Mg Tab.rapdis, 5 MG PO QID, #30 TAB 11/08/18 Duloxetine Hcl* (Duloxetine Hcl*) 60 Mg Capsule.dr, 60 MG PO DAILY, #30 CAP 11/08/18 Divalproex Sodium* (Depakote*) 500 Mg Tablet.dr, 500 MG PO BID, #120 TAB 11/08/18 Gabapentin* (Gabapentin*) 300 Mg Capsule, 300 MG PO TID, #90 CAP 11/08/18 Discontinued Scripts Levofloxacin* (Levofloxacin*) 500 Mg Tablet, 500 MG PO DAILY, #5 TAB Prov:MAIKOL WARE NP 08/12/18 Divalproex Sodium* (Divalproex Sodium*) 250 Mg Tablet.dr, 250 MG PO BID for 14 Days, #30 Prov:MAIKOL WARE NP 08/12/18 Metformin* (Glucophage*) 500 Mg Tab, 500 MG PO BID WITH MEALS for 30 Days, #60 TAB Prov:MAIKOL WARE NP 08/12/18 Quetiapine Fumarate* (Quetiapine Fumarate*) 25 Mg Tablet, 75 MG PO BID for 14 Days, TAB Prov:MAIKOL WARE APPRENTICE PAINTER BRUSH 08/12/18 Lisinopril* (Lisinopril*) 5 Mg Tablet, 5 MG PO DAILY, #30 TAB Prov:JOHNNIE RODRIGUEZ MD 05/20/18 Fluoxetine Hcl* (Prozac*) 20 Mg Capsule, 20 MG PO DAILY, #30 CAP Prov:JOHNNIE RODRIGUEZ MD 05/20/18 Allergies Allergies: Coded Allergies: No Known Allergy (Unverified , 11/08/18) PMhx/Soc History of Surgery: No (GALL BLADDER SURGERY) Anesthesia Reaction: No Hx Neurological Disorder: Yes (CVA,SEIZURES,NEUROPATHY) Hx Respiratory Disorders: No Hx Cardiac Disorders: Yes (HIGH BLOOD PRESSURE) Hx Psychiatric Problems: Yes (BIPOLAR/PSCHITZ) Hx Miscellaneous Medical Probl: No Hx Alcohol Use: Yes Hx Substance Use: Yes (METH) Hx Tobacco Use: Yes Physical Exam Vitals Vital Signs Date Temp Pulse Resp B/P (MAP) Pulse Ox O2 O2 Flow FiO2 Time Delivery Rate 11/08/18 102 99/71 (80) 14:42 11/08/18 98.7 112 17 103/79 98 12:41 (87) 11/08/18 Nasal 2 12:39 Cannula 11/08/18 98.5 117 17 103/79 95 12:34 (87) Physical Exam Const: No acute distress. Head: Atraumatic. Eyes: Normal Conjunctiva. ENT: Normal External Ears, Nose and Mouth. Dry mucous membranes Neck: Full range of motion. No meningismus. Resp: Clear to auscultation bilaterally. Cardio: Regular tachycardic Abd: Soft, non distended, normal bowel sounds, non tender. Skin: No petechiae or rashes. Back: No midline or flank tenderness. Ext: No cyanosis, or edema. Neur: Unable to obtain due to her condition.Airway is intact. Response to pain stimuli Psych: Unable to obtain due to her condition Result Diagram: 11/08/18 1240 11/08/18 1240 Results 24 hrs Laboratory Tests Test 11/08/18 12:34 11/08/18 12:40 11/08/18 12:48 11/08/18 13:44 Bedside Glucose 526 mg/dL White Blood Count 9.0 10^3/ul Red Blood Count 4.23 10^6/ul Hemoglobin 12.1 g/dl Hematocrit 36.9 % Mean Corpuscular 87.2 fl Volume Mean Corpuscular 28.6 pg Hemoglobin Mean Corpuscular 32.8 g/dl Hemoglobin Concen t Red Cell 12.3 % Distribution Width Platelet Count 280 10^3/UL Mean Platelet 9.4 fl Volume Immature 0.200 % Granulocytes % Neutrophils % 56.5 % Lymphocytes % 35.5 % Monocytes % 5.8 % Eosinophils % 1.8 % Basophils % 0.2 % Nucleated Red 0.0 /100WBC Blood Cells % Immature 0.020 10^3/ul Granulocytes # Neutrophils # 5.1 10^3/ul Lymphocytes # 3.2 10^3/ul Monocytes # 0.5 10^3/ul Eosinophils # 0.2 10^3/ul Basophils # 0.0 10^3/ul Nucleated Red 0.0 10^3/ul Blood Cells # Prothrombin Time 12.0 Sec Prothrombin Time 0.9 Ratio INR International 0.88 Normalized Ratio Activated 27.5 Sec Partial Thrombopl ast Time Sodium Level 135 mmol/L Potassium Level 4.2 mmol/L Chloride Level 99 mmol/L Carbon Dioxide 30 mmol/L Level Anion Gap 6 Blood Urea 6 mg/dl Nitrogen Creatinine 0.53 mg/dl Est Glomerular > 60 mL/min Filtrat Rate mL/min Glucose Level 391 mg/dl Calcium Level 9.5 mg/dl Phosphorus Level 3.4 mg/dl Magnesium Level 1.8 mg/dl Total Bilirubin 0.4 mg/dl Direct Bilirubin 0.00 mg/dl Indirect 0.4 mg/dl Bilirubin Aspartate Amino 18 IU/L Transf (AST/SGOT) Alanine 19 IU/L Aminotransferase (ALT/SGPT) Alkaline 104 IU/L Phosphatase Creatine Kinase 139 IU/L Troponin I < 0.012 ng/ml Total Protein 6.9 g/dl Albumin 3.9 g/dl Globulin 3.00 g/dl Albumin/Globulin 1.30 Ratio Salicylates Level < 1.0 mg/dl Acetaminophen < 10.0 ug/ml Level Valproic Acid 97 ug/ml (Depakene) Level Ethyl Alcohol < 10.0 mg/dl Level POC Venous 1.1 mmol/L Lactate Urine Color YELLOW Urine Clarity CLEAR Urine pH 6.0 Urine Specific 1.037 [place] Urine Ketones TRACE mg/dL Urine Nitrite NEGATIVE mg/dL Urine Bilirubin NEGATIVE mg/dL Urine NEGATIVE mg/dL Urobilinogen Urine Leukocyte NEGATIVE Sharad/ul Esterase Urine Hemoglobin NEGATIVE mg/dL Urine Glucose 3+ mg/dL Urine Total NEGATIVE mg/dl Protein Urine Opiates Negative Screen Urine Negative Barbiturates Urine POSITIVE Amphetamines Screen Urine Negative Benzodiazepines Screen Urine Cocaine Negative Screen Urine Negative Cannabinoids Test 11/08/18 14:50 Lactic Acid Level 1.1 mmol/L Current Medications Medications Dose Sig/Claribel Start Time Status Last (Trade) Ordered Route PRN Stop Time Admin Dose Reason Admin Sodium 1,910 ml @ BOLUS X1 11/08/18 DC 11/08/18 Chloride 1,910 mls/hr ONCE IV 13:00 13:01 11/08/18 13:59 Naloxone 2 mg ONCE ONCE 11/08/18 DC 11/08/18 HCl IV 13:00 13:01 (Narcan) 11/08/18 13:01 Piperacillin 100 ml @ ONCE ONCE 11/08/18 DC 11/08/18 Sod/ 200 mls/hr IVPB 14:30 14:52 Tazobactam 11/08/18 14:59 Sod Sodium 1,000 ml @ Q1H ONCE 11/08/18 DC 11/08/18 Chloride 1,000 mls/hr IV 15:00 14:52 11/08/18 15:59 Naloxone 2 mg STK-MED 11/08/18 DC HCl ONCE .ROUTE 12:31 (Narcan) 11/08/18 16:32 Procedures/[place] [id number] Radiology Main Line: [phone] DIAGNOSTIC IMAGING REPORT Patient: ANDERSON MENDOZA : 1970 Age: 48 Sex: F MR #: [id number] DOS: 11/08/18 1236 Ordering MD: ARNAUD TESFAYE MD Location: E/R Room/Bed: PROCEDURE: CT brain without contrast CLINICAL INDICATION: Altered level of consciousness TECHNIQUE: CT of the brain without contrast was performed on a multidetector CT scanner, with multiplanar reformats. One or more of the following dose reduction techniques were used: Automated exposure control, adjustment in mA and / or kV according to patient size, use of iterative reconstructive technique. CTDIvol = 40 mGy; DLP = 634 mGy-cm. DICOM images are available. COMPARISON: None available FINDINGS: No acute intracranial hemorrhage is identified. No extra-axial fluid collection is seen. There is no mass effect. No midline shift is identified. The ventricles and sulci are within normal limits for size and configuration. The density of the brain is unremarkable. Meade-white junctions are preserved. Calvarium and skull base are intact. Mastoid air cells and imaged paranasal sinuses grossly clear. IMPRESSION: No evidence of acute intracranial pathology. RPTAT: VV .Matthew Hager MD, MD Date Time Electronically viewed and signed by .Matthew Hager MD, MD on 11/08/2018 13:19 .O/ CC: ARNAUD TESFAYE MD [id number] [place] [address] Radiology Main Line: [phone] DIAGNOSTIC IMAGING REPORT Patient: ANDERSON MENDOZA : 1970 Age: 48 Sex: F MR #: [id number] DOS: 11/08/18 1236 Ordering MD: ARNAUD TESFAYE MD Location: E/R Room/Bed: PROCEDURE: CT cervical spine without contrast. CLINICAL INDICATION: Neck pain TECHNIQUE: CT of the cervical spine without contrast was performed on a multidetector CT scanner, with multiplanar reformats. One or more of the following dose reduction techniques were used: Automated exposure control, adjustment in mA and / or kV according to patient size, use of iterative reconstructive technique. CTDIvol = 22 mGy and DLP = 498 mGy-cm. DICOM images are available. COMPARISON: None available. FINDINGS: No fracture is identified. There is straightening of the lordosis of the cervical spine. No gross spondylolisthesis is seen. The vertebral bodies are maintained in height. There are anterior atlantoaxial joint degenerative changes. There are anterior osteophytes seen at C3-4, C5-6 and C6-7. The disc spaces are maintained in height. Additional findings by levels: C2-3: Posterior disk/osteophyte with mild central canal stenosis seen. No foraminal narrowing seen. C3-4: Posterior disk/osteophyte with moderate to severe central canal stenosis seen. Uncovertebral osteophytes and facet arthropathy with mild-moderate bilateral foraminal narrowing seen. C4-5: Posterior disc osteophyte with mild central canal stenosis seen. No foraminal narrowing seen. C5-6: Posterior disc osteophyte with mild central canal stenosis seen. Uncovertebral osteophytes without foraminal narrowing seen. C6-7: Posterior disk/osteophyte with mild - moderate central canal stenosis seen. Uncovertebral osteophytes without foraminal narrowing seen. C7-T1: No significant disc bulge/herniation, central canal stenosis or foraminal narrowing seen. IMPRESSION: 1. No fracture identified. 2. Cervical spondylosis/degenerative enthesopathy as described above. RPTAT: VV .Matthew Hager MD, MD Date Time Electronically viewed and signed by .Matthew Hager MD, on 11/08/2018 13:24 .O/ CC: ARNAUD TESFAYE MD [phone] [place] [address] Radiology Main Line: [phone] DIAGNOSTIC IMAGING REPORT Patient: ANDERSON MENDOZA : 1970 Age: 48 Sex: F MR #: [id number] DOS: 11/08/18 1233 Ordering MD: ARNAUD TESFAYE MD Location: E/R Room/Bed: PROCEDURE: XR Chest 1 View CLINICAL INDICATION: Fever TECHNIQUE: Single frontal view of the chest COMPARISON: CHEST 08/13/2018 FINDINGS: Heart size is normal. Mediastinum is unremarkable. Linear opacities at the left lung base.. No pleural effusion or pneumothorax. No acute osseous abnormality. IMPRESSION: Left basilar atelectasis or scarring. Pneumonia not entirely excluded. RPTAT: PP Physician Elieser Date Time Electronically viewed and signed by Silvana Clinton Physician on 11/08/2018 1 3:08 ME/ CC: ARNAUD TESFAYE MD [id number] EKG: Read by emergency physician Rate/Rhythm: Sinus tachycardia 111 beats/min QRS, ST, T-waves: No ST elevation, no T inversion, low voltage in precordial leads Impression: Abnormal EKG MEDICAL MAKING DECISION: The patient is a 48-year-old female, presenting with acute encephalopathy most likely due to acute amphetamine toxicity, acute hype rosmolar hyperglycemic syndrome She was treated with Schwarz catheter, Narcan 2 mg IV with no response, normosaline 30 mm/kg IV and 1 L saline for acute dehydration and acute HHS, Zosyn IV empirically. It is expected her glucose to improve with hydration The differential diagnoses considered include but are not limited to DKA, metabolic encephalopathy, septic encephalopathy, substance abuse, psychiatric illness Critical Care: Time: 35 minutes excluding all billable procedures. Treatments/Evaluations: Close monitoring and treatment of unstable vital signs, cardiorespiratory, and neurologic status, while maintaining tight balance of fluid, respiratory, and cardiac interventions. Departure Diagnosis: Primary Impression: Encephalopathy acute Additional Impressions: Hyperosmolar hyperglycemic coma due to diabetes mellitus without ketoacidosis Amphetamine abuse Condition: Critical Comments I discussed the findings with the patient. I notified the patient with Dr. Dominguez at 2:35p via [facility], who was made aware of the lab, the treatment, the patient condition. The patient is admitted to ICU Disclaimer: Inadvertent spelling and grammatical errors are likely due to EHR/dictation software use and do not reflect on the overall quality of patient care. Also, please note that the electronic time recorded on this note does not necessarily reflect the actual time of the patient encounter. ARNAUD TESFAYE MD Nov 08, 2018 12:32
[2018-11-08] MEDS ORDERED: SOD CHLORIDE 0.9% 1,910 ML IV ONE (13:00)
[2018-11-08] MEDS ORDERED: NALOXONE 2 MG SYG IV ONE (13:00)
[2018-11-08] MEDS ORDERED: PIPER-TAZO 3.375 GM IV (PMX) 100 ML IVPB ONE (14:30)
[2018-11-08] MEDS ORDERED: SOD CHLORIDE 0.9% 1,000 ML IV ONE (15:00)
[2018-11-08] MEDS: SOD CHLORIDE 0.9% 1,000 ML IV SCH (16:53)
--- NOTE | 2018-11-08 16:53 | HP ---
Date/Time of Note Date/Time of Note DATE: 11/08/18 TIME: 16:50 Assessment/Plan VTE Prophylaxis SCD applied (from Nsg): Yes Pharmacological prophylaxis: NA/contraindicated Pharm contraindication: low risk/ambulating Lines/Catheters IV Catheter Type (from Nrsg): Saline Lock Assessment/Plan Hospital Course 1. Hyperosmolar hyperglycemic state (HHS) Insulin and fluids 2. Diabetes mellitus type 2 Insulin 3. 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 Substance abuse Toxicology currently positive for amphetamines Prophylaxis: SCDs Result Diagram: 11/08/18 1240 11/08/18 1240 Results 24hrs Laboratory Tests Test 11/08/18 12:34 11/08/18 12:40 11/08/18 12:48 11/08/18 13:44 Bedside Glucose 526 *H White Blood Count 9.0 Red Blood Count 4.23 Hemoglobin 12.1 Hematocrit 36.9 L Mean Corpuscular 87.2 Volume Mean Corpuscular 28.6 L Hemoglobin Mean Corpuscular 32.8 Hemoglobin Concen t Red Cell 12.3 Distribution Width Platelet Count 280 # Mean Platelet 9.4 Volume Immature 0.200 Granulocytes % Neutrophils % 56.5 Lymphocytes % 35.5 Monocytes % 5.8 Eosinophils % 1.8 Basophils % 0.2 Nucleated Red 0.0 Blood Cells % Immature 0.020 Granulocytes # Neutrophils # 5.1 Lymphocytes # 3.2 H Monocytes # 0.5 Eosinophils # 0.2 Basophils # 0.0 Nucleated Red 0.0 Blood Cells # Prothrombin Time 12.0 Prothrombin Time 0.9 Ratio INR International 0.88 Normalized Ratio Activated 27.5 Partial Thrombopl ast Time Sodium Level 135 Potassium Level 4.2 Chloride Level 99 Carbon Dioxide 30 Level Anion Gap 6 Blood Urea 6 L Nitrogen Creatinine 0.53 Est Glomerular > 60 Filtrat Rate mL/min Glucose Level 391 H Calcium Level 9.5 Phosphorus Level 3.4 Magnesium Level 1.8 Total Bilirubin 0.4 Direct Bilirubin 0.00 Indirect 0.4 Bilirubin Aspartate Amino 18 Transf (AST/SGOT) Alanine 19 Aminotransferase (ALT/SGPT) Alkaline 104 Phosphatase Creatine Kinase 139 Troponin I < 0.012 Total Protein 6.9 Albumin 3.9 Globulin 3.00 Albumin/Globulin 1.30 Ratio Salicylates Level < 1.0 L Acetaminophen < 10.0 L Level Valproic Acid 97 (Depakene) Level Ethyl Alcohol < 10.0 H Level POC Venous 1.1 Lactate Urine Color YELLOW Urine Clarity CLEAR Urine pH 6.0 Urine Specific 1.037 [place] Urine Ketones TRACE A Urine Nitrite NEGATIVE Urine Bilirubin NEGATIVE Urine NEGATIVE Urobilinogen Urine Leukocyte NEGATIVE Esterase Urine Hemoglobin NEGATIVE Urine Glucose 3+ H Urine Total NEGATIVE Protein Urine Opiates Negative Screen Urine Negative Barbiturates Urine POSITIVE Amphetamines Screen Urine Negative Benzodiazepines Screen Urine Cocaine Negative Screen Urine Negative Cannabinoids Test 11/08/18 14:50 11/08/18 16:00 Lactic Acid Level 1.1 Blood Gas Blood arterial Specimen Source Arterial Blood 11/08/2018 12:53: Date Drawn 00 PM Arterial Blood pH 7.398 (Temp corrected) Arterial Blood 47.4 H pCO2 (Temp correct) Arterial Blood 88.2 pO2 (Temp corrected) Arterial Blood 28.6 H HCO3 Arterial Blood 3.1 H Base Excess Arterial Blood 96.7 Oxygen Saturation Arthur Test ACCEPTAB Arterial Blood Right Radial Gas Puncture Site Arterial 0.7 Blood Carboxyhemo globin Arterial Blood 0.3 Methemoglobin Blood Gas A-a O2 4.8 L Differential Oxyhemoglobin 95.7 Percent Blood Gas 37.0 Temperature Blood Gas ROOM AIR Modality FiO2 21.0 Blood Gas TM Notified Whom Blood Gas 11/08/2018 1:07:0 Notified Time 0 PM HPI/ROS Admit Date/Time Admit Date/Time November 08, 2018 Hx of Present Illness Patient is a 48-year-old female with a history of schizophrenia, homelessness, substance abuse, diabetes with previous hospitalization for hyperosmolar hyperglycemic state. Patient presents with confusion and was once again found to be in HHS in the ER. Patient is unable to provide any history at this time and history is obtained from prior documentation. ROS Subjective hx not possible: pt non-verbal PMH/Family/Social Past Medical History As per HPI Coded Allergies: No Known Allergy (Unverified , 11/08/18) Past Surgical History Past Surgical Hx: cholecystectomy, other Family History Significant Family History: heart disease, diabetes, vascular disease Social History Smoking Status: Unknown if ever smoked Exam/Review of Systems Vital Signs Vitals Vital Signs Date Temp Pulse Resp B/P (MAP) Pulse Ox O2 O2 Flow FiO2 Time Delivery Rate 11/08/18 82 15 111/89 100 Nasal 2.0 16:00 (96) Cannula 11/08/18 98.7 12:41 Exam Psych: confusion Respiratory: clear to auscultation Cardiovascular: regular rate and rhythm Gastrointestinal: soft; No distended Musculoskeletal: nl extremities to inspection IGNACIO AUGUSTE Nov 08, 2018 16:53
[2018-11-08] MEDS: OLANZAPINE (ODT) 5 MG TAB PO SCH ×2 (17:00→20:24)
[2018-11-08] MEDS: INSULIN ASPART [NOVOLOG] 3 ML PEN SC SCH ×3 (17:00→21:00)
[2018-11-08] MEDS ORDERED: NACL 0.9% 3 ML SYG IV SCH (17:00)
[2018-11-08] MEDS ORDERED: ONDANSETRON 4 MG INJ IV PRN (17:00)
[2018-11-08 17:30] VITALS: Ht 165.1 cm; Wt 72.5 kg
[2018-11-08 18:30] VITALS: BP 108/87; PULSE 87; RESP 11
[2018-11-08 19:00] VITALS: BP 109/89; PULSE 90; RESP 11
[2018-11-08 20:00] VITALS: BP 102/80; PULSE 93; RESP 12
[2018-11-08] MEDS ORDERED: NON-FORMULARY/PATIENT OWN MED ([Insulin Glargine] 20 UNITS) SC SCH (20:00)
[2018-11-08] MEDS: GABAPENTIN 300 MG CAP PO SCH (20:24)
[2018-11-08 21:00] VITALS: BP 110/87; PULSE 89; RESP 11
[2018-11-08] MEDS: MONTELUKAST 10 MG TAB PO SCH (21:00)
[2018-11-08] MEDS ORDERED: DIVALPROEX (EC) 500 MG TAB PO SCH (21:00)
[2018-11-08] MEDS: VALPROATE INJ 500 MG in SOD CHLORIDE 0.9% 50 ML IVPB SCH (21:39)
[2018-11-08] MEDS: INSULIN GLARGINE [LANTus] (100 UNITS/ML) SYG SC SCH (21:44)
[2018-11-08 22:00] VITALS: BP 117/90; PULSE 102; RESP 17
[2018-11-08 23:00] VITALS: BP 102/85; PULSE 106; RESP 15
[2018-11-09] VITALS (25 sets, daily range): BP systolic 96–134; BP diastolic 74–97; PULSE 68–105; RESP 5–26
[2018-11-09] MEDS: SOD CHLORIDE 0.9% 1,000 ML IV SCH ×2 (00:53→02:33)
[2018-11-09] MEDS: INSULIN ASPART [NOVOLOG] 3 ML PEN SC SCH ×6 (01:00→16:58)
[2018-11-09] MEDS ORDERED: DEXTROSE 50% 50 ML SYRINGE IV ONE ×2 (01:30→05:00)
[2018-11-09] MEDS: ACCU-CHEK XX SCH (01:32)
[2018-11-09] MEDS ORDERED: DEXTROSE 50% 50 ML SYRINGE ONE (01:34)
[2018-11-09] MEDS ORDERED: GLUCOSE GEL 15 GRAM TUBE PO PRN ×2 (02:00)
[2018-11-09] MEDS ORDERED: GLUCAGON 1 MG INJ IM PRN (02:00)
[2018-11-09] MEDS ORDERED: DEXTROSE 50% 50 ML SYRINGE IV PRN ×2 (02:00)
[2018-11-09] MEDS ORDERED: GLUCOSE GEL 15 GRAM TUBE BUCCAL PRN (02:00)
[2018-11-09] MEDS: GABAPENTIN 300 MG CAP PO SCH ×3 (08:28→20:23)
[2018-11-09] MEDS: LISINOPRIL 10 MG TAB PO SCH (08:28)
[2018-11-09] MEDS: OLANZAPINE (ODT) 5 MG TAB PO SCH ×4 (08:28→20:24)
[2018-11-09] MEDS: VALPROATE INJ 500 MG in SOD CHLORIDE 0.9% 50 ML IVPB SCH ×2 (08:28→20:23)
[2018-11-09] MEDS: DULOXETINE 30 MG CAP DR PO SCH (08:32)
--- NOTE | 2018-11-09 14:47 | PDOCDIS ---
Discharge Instructions CONDITION [id number] Patient Condition: [id number] Good HOME CARE INSTRUCTIONS: [id number] Special Diet: [id number] Diabetic ACTIVITY: [id number] Activity Restrictions: [id number] No Restrictions FOLLOW UP/APPOINTMENTS Follow-up Plan FOLLOW UP WITH YOUR PRIMARY CARE PHYSICIAN IN 1-2 WEEKS IGNACIO AUGUSTE Nov 09, 2018 14:47
--- NOTE | 2018-11-09 14:50 | DS ---
Date/Time of Note Date/Time of Note DATE: 11/09/18 TIME: 14:48 Discharge Summary Admission/Discharge Info Admit Date/Time Nov 08, 2018 at 15:23 Discharge Date/Time November 09, 2018 Discharge Diagnosis 1. Hyperosmolar hyperglycemic state (HHS) Resolved with fluids and insulin 2. Diabetes mellitus type 2 Continue outpatient regimen 3. History of homelessness and schizophrenia vault worker consultation 4. Substance abuse Cessation advised Toxicology currently positive for amphetamines vault worker consultation Patient Condition: Good Hospital Course Patient is a 48-year-old female with a history of schizophrenia, homelessness, substance abuse, diabetes with previous hospitalization for hyperosmolar hyperglycemic state. Patient presents with confusion and was once again found to be in HHS in the ER. Patient was confused on arrival mentation did improve. Toxicology was positive for amphetamines, cessation was strongly advised and patient was seen by social insurance administrator prior to DC. On the day of discharge patient's vitals, labs and physical exam are stable. Home Meds Active Scripts Insulin Aspart* (Novolog Insulin Pen*) 100 Unit/Ml Soln, 18 UNIT SC WITH MEALS, #1 UNIT Prov:MAIKOL WARE NP 08/12/18 [Insulin Glargine] 100 UNITS/ML SOLN No Conflict Check, 36 UNITS SC DAILY@2000, #1 UNIT Prov:MAIKOL WARE NP 08/12/18 Montelukast Sodium* (Montelukast Sodium*) 10 Mg Tablet, 10 MG PO QHS, #30 TAB Prov:JOHNNIE RODRIGUEZ MD 05/20/18 Reported Medications Lisinopril* (Lisinopril*) 10 Mg Tablet, 10 MG PO DAILY, #30 TAB 11/08/18 Olanzapine* (Olanzapine* ODT) 5 Mg Tab.rapdis, 5 MG PO QID, #30 TAB 11/08/18 Duloxetine Hcl* (Duloxetine Hcl*) 60 Mg Capsule.dr, 60 MG PO DAILY, #30 CAP 11/08/18 Divalproex Sodium* (Depakote*) 500 Mg Tablet.dr, 500 MG PO BID, #120 TAB 11/08/18 Gabapentin* (Gabapentin*) 300 Mg Capsule, 300 MG PO TID, #90 CAP 11/08/18 Discontinued Scripts Levofloxacin* (Levofloxacin*) 500 Mg Tablet, 500 MG PO DAILY, #5 TAB Prov:MAIKOL WARE NP 08/12/18 Divalproex Sodium* (Divalproex Sodium*) 250 Mg Tablet.dr, 250 MG PO BID for 14 Days, #30 Prov:MAIKOL WARE NP 08/12/18 Metformin* (Glucophage*) 500 Mg Tab, 500 MG PO BID WITH MEALS for 30 Days, #60 TAB Prov:MAIKOL WARE NP 08/12/18 Quetiapine Fumarate* (Quetiapine Fumarate*) 25 Mg Tablet, 75 MG PO BID for 14 Days, TAB Prov:MAIKOL WARE NP 08/12/18 Lisinopril* (Lisinopril*) 5 Mg Tablet, 5 MG PO DAILY, #30 TAB Prov:JOHNNIE RODRIGUEZ MD 05/20/18 Fluoxetine Hcl* (Prozac*) 20 Mg Capsule, 20 MG PO DAILY, #30 CAP Prov:JOHNNIE RODRIGUEZ MD 05/20/18 Follow-up Plan FOLLOW UP WITH YOUR PRIMARY CARE PHYSICIAN IN 1-2 WEEKS Primary Care Provider Not On Staff Doctor Time spent on discharge: > 30 minutes IGNACIO AUGUSTE Nov 09, 2018 14:50
[2018-11-09] MEDS: Insulin NOVOLOG SS MILD Algorithm (SS with meals and bedtime) SC SCH ×2 (16:51→20:18)
[2018-11-09] MEDS ORDERED: INSULIN ASPART [NOVOLOG] 3 ML PEN SC SCH (17:05)
[2018-11-09] MEDS: INSULIN GLARGINE [LANTus] (100 UNITS/ML) SYG SC SCH (20:00)
[2018-11-09] MEDS: MONTELUKAST 10 MG TAB PO SCH (20:23)
[2018-11-10 01:04] VITALS: BP 116/53; PULSE 89
[2018-11-10] MEDS: ACCU-CHEK XX SCH (01:18)
[2018-11-10] MEDS: Insulin NOVOLOG SS MILD Algorithm (SS with meals and bedtime) SC SCH ×4 (07:05→20:25)
[2018-11-10 08:05] VITALS: BP 112/74; PULSE 79; RESP 14
[2018-11-10] MEDS: GABAPENTIN 300 MG CAP PO SCH ×3 (08:39→20:20)
[2018-11-10] MEDS: DULOXETINE 30 MG CAP DR PO SCH (08:39)
[2018-11-10] MEDS: OLANZAPINE (ODT) 5 MG TAB PO SCH ×4 (08:39→20:19)
[2018-11-10] MEDS: DIVALPROEX (EC) 500 MG TAB PO SCH ×2 (08:39→20:20)
[2018-11-10] MEDS: LISINOPRIL 10 MG TAB PO SCH (08:40)
[2018-11-10 15:05] VITALS: BP 106/74; PULSE 94; RESP 15
--- NOTE | 2018-11-10 15:09 | DS ---
Date/Time of Note Date/Time of Note DATE: 11/10/18 TIME: 15:09 Discharge Summary Admission/Discharge Info Admit Date/Time Nov 08, 2018 at 15:23 Discharge Date/Time November 10, 2018 Discharge Diagnosis 1. Hyperosmolar hyperglycemic state (HHS) Resolved with fluids and insulin 2. Diabetes mellitus type 2 Continue outpatient regimen 3. History of homelessness and schizophrenia barnworker groom consultation appreciated 4. Substance abuse Cessation advised Toxicology currently positive for amphetamines barnworker groom consultation appreciated Patient Condition: Good Hospital Course Patient is a 48-year-old female with a history of schizophrenia, homelessness, substance abuse, diabetes with previous hospitalization for hyperosmolar hyperglycemic state. Patient presents with confusion and was once again found to be in HHS in the ER. Patient was confused on arrival mentation did improve. Toxicology was positive for amphetamines, cessation was strongly advised and patient was seen by social media senior associate prior to DC given resources for drug rehab programs and shelters. On the day of discharge patient's vitals, labs and physical exam are stable. Home Meds Active Scripts Insulin Aspart* (Novolog Insulin Pen*) 100 Unit/Ml Soln, 18 UNIT SC WITH MEALS, #1 UNIT 1 Refill Prov:MOLINAIGNACIO 11/10/18 [Insulin Glargine] 100 UNITS/ML SOLN No Conflict Check, 36 UNITS SC DAILY@1999, #1 UNIT 1 Refill Prov:IGNACIO AUGUSTE 11/10/18 Montelukast Sodium* (Montelukast Sodium*) 10 Mg Tablet, 10 MG PO QHS, #30 TAB Prov:JOHNNIE RODRIGUEZ MD 05/20/18 Reported Medications Lisinopril* (Lisinopril*) 10 Mg Tablet, 10 MG PO DAILY, #30 TAB 11/08/18 Olanzapine* (Olanzapine* ODT) 5 Mg Tab.rapdis, 5 MG PO QID, #30 TAB 11/08/18 Duloxetine Hcl* (Duloxetine Hcl*) 60 Mg Capsule.dr, 60 MG PO DAILY, #30 CAP 11/08/18 Divalproex Sodium* (Depakote*) 500 Mg Tablet.dr, 500 MG PO BID, #120 TAB 11/08/18 Gabapentin* (Gabapentin*) 300 Mg Capsule, 300 MG PO TID, #90 CAP 11/08/18 Discontinued Scripts Levofloxacin* (Levofloxacin*) 500 Mg Tablet, 500 MG PO DAILY, #5 TAB Prov:MAIKOL WARE BURNER MACHINE OPERATOR 08/12/18 Divalproex Sodium* (Divalproex Sodium*) 250 Mg Tablet.dr, 250 MG PO BID for 14 Days, #30 Prov:MAIKOL WARE BURNER MACHINE OPERATOR 08/12/18 Metformin* (Glucophage*) 500 Mg Tab, 500 MG PO BID WITH MEALS for 30 Days, #60 TAB Prov:MAIKOL WARE NP 08/12/18 Quetiapine Fumarate* (Quetiapine Fumarate*) 25 Mg Tablet, 75 MG PO BID for 14 Days, TAB Prov:MAIKOL WARE NP 08/12/18 Lisinopril* (Lisinopril*) 5 Mg Tablet, 5 MG PO DAILY, #30 TAB Prov:JOHNNIE RODRIGUEZ MD 05/20/18 Fluoxetine Hcl* (Prozac*) 20 Mg Capsule, 20 MG PO DAILY, #30 CAP Prov:JOHNNIE RODRIGUEZ MD 05/20/18 Follow-up Plan FOLLOW UP WITH YOUR PRIMARY CARE PHYSICIAN IN 1-2 WEEKS Primary Care Provider Not On Staff Doctor Time spent on discharge: > 30 minutes IGNACIO AUGUSTE Nov 10, 2018 15:09
[2018-11-10 20:00] VITALS: BP 126/77; PULSE 88; RESP 17
[2018-11-10] MEDS: MONTELUKAST 10 MG TAB PO SCH (20:20)
[2018-11-10] MEDS: INSULIN GLARGINE [LANTus] (100 UNITS/ML) SYG SC SCH (20:22)
[2018-11-11 02:00] VITALS: BP 137/96; PULSE 85; RESP 17
[2018-11-11] MEDS: ACCU-CHEK XX SCH (02:00)
[2018-11-11 07:48] VITALS: BP 123/84; PULSE 86; RESP 18
[2018-11-11] MEDS: Insulin NOVOLOG SS MILD Algorithm (SS with meals and bedtime) SC SCH ×4 (08:25→20:28)
[2018-11-11] MEDS: DIVALPROEX (EC) 500 MG TAB PO SCH ×2 (08:26→20:28)
[2018-11-11] MEDS: GABAPENTIN 300 MG CAP PO SCH ×3 (08:26→20:28)
[2018-11-11] MEDS: DULOXETINE 30 MG CAP DR PO SCH (08:26)
[2018-11-11] MEDS: LISINOPRIL 10 MG TAB PO SCH (08:27)
[2018-11-11] MEDS: OLANZAPINE (ODT) 5 MG TAB PO SCH ×4 (08:27→20:28)
--- NOTE | 2018-11-11 12:15 | DS ---
Date/Time of Note Date/Time of Note DATE: 11/11/18 TIME: 12:14 Discharge Summary Admission/Discharge Info Admit Date/Time Nov 08, 2018 at 15:23 Discharge Date/Time November 11, 2018 Discharge Diagnosis 1. Hyperosmolar hyperglycemic state (HHS) Resolved with fluids and insulin 2. Diabetes mellitus type 2 Continue outpatient regimen 3. History of homelessness and schizophrenia grounds worker consultation appreciated 4. Substance abuse Cessation advised Toxicology currently positive for amphetamines grounds worker consultation appreciated Patient Condition: Good Hospital Course Patient is a 48-year-old female with a history of schizophrenia, homelessness, substance abuse, diabetes with previous hospitalization for hyperosmolar hyperglycemic state. Patient presents with confusion and was once again found to be in HHS in the ER. Patient was confused on arrival mentation did improve. Toxicology was positive for amphetamines, cessation was strongly advised and patient was seen by nursing home social worker prior to DC given resources for drug rehab programs and shelters. On the day of discharge patient's vitals, labs and physical exam are stable. DC was held for several days due to persistent lethargy which improved on the day of discharge. Home Meds Active Scripts Insulin Aspart* (Novolog Insulin Pen*) 100 Unit/Ml Soln, 18 UNIT SC WITH MEALS, #1 UNIT 1 Refill Prov:IGNACIO AUGUSTE 11/10/18 [Insulin Glargine] 100 UNITS/ML SOLN No Conflict Check, 36 UNITS SC DAILY@1999, #1 UNIT 1 Refill Prov:IGNACIO AUGUSTE 11/10/18 Montelukast Sodium* (Montelukast Sodium*) 10 Mg Tablet, 10 MG PO QHS, #30 TAB Prov:JOHNNIE RODRIGUEZ MD 05/20/18 Reported Medications Lisinopril* (Lisinopril*) 10 Mg Tablet, 10 MG PO DAILY, #30 TAB 11/08/18 Olanzapine* (Olanzapine* ODT) 5 Mg Tab.rapdis, 5 MG PO QID, #30 TAB 11/08/18 Duloxetine Hcl* (Duloxetine Hcl*) 60 Mg Capsule.dr, 60 MG PO DAILY, #30 CAP 11/08/18 Divalproex Sodium* (Depakote*) 500 Mg Tablet.dr, 500 MG PO BID, #120 TAB 11/08/18 Gabapentin* (Gabapentin*) 300 Mg Capsule, 300 MG PO TID, #90 CAP 11/08/18 Discontinued Scripts Levofloxacin* (Levofloxacin*) 500 Mg Tablet, 500 MG PO DAILY, #5 TAB Prov:MAIKOL WARE NP 08/12/18 Divalproex Sodium* (Divalproex Sodium*) 250 Mg Tablet.dr, 250 MG PO BID for 14 Days, #30 Prov:MAIKOL WARE NP 08/12/18 Metformin* (Glucophage*) 500 Mg Tab, 500 MG PO BID WITH MEALS for 30 Days, #60 TAB Prov:MAIKOL WARE NP 08/12/18 Quetiapine Fumarate* (Quetiapine Fumarate*) 25 Mg Tablet, 75 MG PO BID for 14 Days, TAB Prov:MAIKOL WARE NP 08/12/18 Lisinopril* (Lisinopril*) 5 Mg Tablet, 5 MG PO DAILY, #30 TAB Prov:JOHNNIE RODRIGUEZ MD 05/20/18 Fluoxetine Hcl* (Prozac*) 20 Mg Capsule, 20 MG PO DAILY, #30 CAP Prov:JOHNNIE RODRIGUEZ MD 05/20/18 Follow-up Plan FOLLOW UP WITH YOUR PRIMARY CARE PHYSICIAN IN 1-2 WEEKS Primary Care Provider Not On Staff Doctor Time spent on discharge: > 30 minutes IGNACIO AUGUSTE Nov 11, 2018 12:15
[2018-11-11 20:09] VITALS: BP 109/77; PULSE 85; RESP 18
[2018-11-11] MEDS: INSULIN GLARGINE [LANTus] (100 UNITS/ML) SYG SC SCH (20:27)
[2018-11-11] MEDS: MONTELUKAST 10 MG TAB PO SCH (20:27)
[2018-11-12] MEDS: ACCU-CHEK XX SCH (01:44)
[2018-11-12 01:51] VITALS: BP 120/84; PULSE 86; RESP 18
[2018-11-12] MEDS: Insulin NOVOLOG SS MILD Algorithm (SS with meals and bedtime) SC SCH ×2 (07:05→11:15)
[2018-11-12 08:00] VITALS: BP 128/72; PULSE 86; RESP 20
[2018-11-12] MEDS: LISINOPRIL 10 MG TAB PO SCH (08:47)
[2018-11-12] MEDS: DIVALPROEX (EC) 500 MG TAB PO SCH (08:47)
[2018-11-12] MEDS: DULOXETINE 30 MG CAP DR PO SCH (08:47)
[2018-11-12] MEDS: GABAPENTIN 300 MG CAP PO SCH (08:47)
[2018-11-12] MEDS: OLANZAPINE (ODT) 5 MG TAB PO SCH (08:47)
--- NOTE | 2018-11-12 17:56 | DS ---
Date/Time of Note Date/Time of Note DATE: 11/12/18 TIME: 17:55 Discharge Summary Admission/Discharge Info Admit Date/Time Nov 08, 2018 at 15:23 Discharge Date/Time Nov 12, 2018 at 13:15 Discharge Diagnosis 1. Hyperosmolar hyperglycemic state (HHS) Resolved with fluids and insulin 2. Diabetes mellitus type 2 Continue outpatient regimen 3. History of homelessness and schizophrenia front worker consultation appreciated 4. Substance abuse Cessation advised Toxicology currently positive for amphetamines front worker consultation appreciated Patient Condition: Good Hospital Course Patient is a 48-year-old female with a history of schizophrenia, homelessness, substance abuse, diabetes with previous hospitalization for hyperosmolar hyperglycemic state. Patient presents with confusion and was once again found to be in HHS in the ER. Patient was confused on arrival mentation did improve. Toxicology was positive for amphetamines, cessation was strongly advised and patient was seen by social media content specialist prior to DC given resources for drug rehab programs and shelters. Patient was not interested in going to a skilled nursing and patient did not qualify for rehab facility. On the day of discharge patient's vitals, labs and physical exam are stable. DC was held for several days due to persistent lethargy which improved on the day of discharge. Home Meds Active Scripts Insulin Aspart* (Novolog Insulin Pen*) 100 Unit/Ml Soln, 18 UNIT SC WITH MEALS, #1 UNIT 1 Refill Prov:MOLINAIGNACIO 11/10/18 [Insulin Glargine] 100 UNITS/ML SOLN No Conflict Check, 36 UNITS SC DAILY@2000, #1 UNIT 1 Refill Prov:IGNACIO AUGUSTE 11/10/18 Montelukast Sodium* (Montelukast Sodium*) 10 Mg Tablet, 10 MG PO QHS, #30 TAB Prov:JOHNNIE RODRIGUEZ MD 05/20/18 Reported Medications Lisinopril* (Lisinopril*) 10 Mg Tablet, 10 MG PO DAILY, #30 TAB 11/08/18 Olanzapine* (Olanzapine* ODT) 5 Mg Tab.rapdis, 5 MG PO QID, #30 TAB 11/08/18 Duloxetine Hcl* (Duloxetine Hcl*) 60 Mg Capsule., 60 MG PO DAILY, #30 CAP 11/08/18 Divalproex Sodium* (Depakote*) 500 Mg Tablet.dr, 500 MG PO BID, #120 TAB 11/08/18 Gabapentin* (Gabapentin*) 300 Mg Capsule, 300 MG PO TID, #90 CAP 11/08/18 Discontinued Scripts Levofloxacin* (Levofloxacin*) 500 Mg Tablet, 500 MG PO DAILY, #5 TAB Prov:MAIKOL WARE NP 08/12/18 Divalproex Sodium* (Divalproex Sodium*) 250 Mg Tablet.dr, 250 MG PO BID for 14 Days, #30 Prov:MAIKOL WARE NP 08/12/18 Metformin* (Glucophage*) 500 Mg Tab, 500 MG PO BID WITH MEALS for 30 Days, #60 TAB Prov:MAIKOL WARE NP 08/12/18 Quetiapine Fumarate* (Quetiapine Fumarate*) 25 Mg Tablet, 75 MG PO BID for 14 Days, TAB Prov:MAIKOL WARE NP 08/12/18 Lisinopril* (Lisinopril*) 5 Mg Tablet, 5 MG PO DAILY, #30 TAB Prov:JOHNNIE RODRIGUEZ MD 05/20/18 Fluoxetine Hcl* (Prozac*) 20 Mg Capsule, 20 MG PO DAILY, #30 CAP Prov:JOHNNIE RODRIGUEZ MD 05/20/18 Follow-up Plan FOLLOW UP WITH YOUR PRIMARY CARE PHYSICIAN IN 1-2 WEEKS Primary Care Provider Not On Staff Doctor Time spent on discharge: > 30 minutes IGNACIO AUGUSTE Nov 12, 2018 17:56
== END 2018-11-12 13:15 | disposition home or self-care (01) | DRG 639 ==
LOC: E/R 12:28 → ICU 15:23 → MS3 11-09 22:55
PROVIDERS: ADMIT Internal Medicine; ATTEND Internal Medicine
DX: E11.00 Type 2 diabetes mellitus with hyperosmolarity without nonketotic hyperglycemic-hyperosmolar coma (NKHHC) (principal); F20.9 Schizophrenia, unspecified; F15.10 Other stimulant abuse, uncomplicated; Z59.0 Homelessness; Z79.4 Long term (current) use of insulin
CPT/HCPCS: 36415; 36600; 70450; 71045; 72125; 80048; 80053; 80164; 80307; 81003; 82550; 82803; 82947; 82962; 83036; 83605; 83735; 84100; 84484; 85025; 85610; 85730; 87081; 87086; 93005; 96365; 96375; J1815; J2310; J2543; J7030